=== PATIENT | male | born 1955 | race Caucasian/White ===

== ENCOUNTER → 2019-10-21 09:55 | Outpatient (CLI) | payer OTHER, SELFPAY ==
--- NOTE | ~2019-10-21 | DEXA_ITS ---
Bone Density Report Name: Juventino Chappell Age: 64 Sex: Male Ethnicity: White Date of : 1955 Indication: height loss; history of glucocorticoids; rheumatoid arthritis; Referring Provider: JOHN, OTONIEL Godinez Study: Bone densitometry was performed. Exam Date: October 21, 2019 Accession number: [id number] Bone Density: Region BMD T-score Z-score Classification AP Spine (L1, L2, L3) 1.318 2.3 2.9 Normal Femoral Neck (Left) 1.015 0.6 1.6 Normal Total Hip (Left) 1.197 1.1 1.6 Normal Femoral Neck (Right) 1.036 0.8 1.8 Normal Total Hip (Right) 1.137 0.7 1.2 Normal Total Hip Mean 1.167 0.9 1.4 Normal World Health Organization criteria for BMD impression classify patients as: Normal (T-score at or above -1.0), Osteopenia (T-score between -1.0 and -2.5), or Osteoporosis (T-score at or below -2.5). 10-year Fracture Risk: FRAX not reported because: All T-scores for Spine Total, Hip Total, Femoral Neck at or above -1.0 Clinical Information Provided by Patient: Has taken Glucocorticoids Has rheumatoid arthritis Has 3 or more alcoholic drinks per day Patient maximum height was 76 Drinks caffeinated beverages Impression: The patient has normal bone mass. The patient has risk factors, including: excessive alcohol use, history of glucocorticoid therapy. Discussion: BONE DENSITY IS ABOVE THE MINIMUM DESIRABLE LEVEL AT ALL SKELETAL SITES TESTED. This patient?s bone mineral density is above the minimum desirable level (T-score -1.0 or better) at all sites measured. The patient should follow a healthful lifestyle (good nutrition with adequate calcium and vitamin D, and appropriate weight-bearing exercise). Follow-Up: Consider repeating this study in 5 years or sooner if there is some new clinical indication. Reported by: [facility] on 10/21/2019 10:30:00 AM. Reviewed, dictated and finalized at location ANieves JACK
== END ==
PROVIDERS: PCP Internal Medicine; Visit Provider Internal Medicine
DX: M06.9 Rheumatoid arthritis, unspecified (principal); R29.890 Loss of height; Z79.52 Long term (current) use of systemic steroids
CPT/HCPCS: 77080

== ENCOUNTER 2019-11-05 10:26 | Outpatient (CLI) | payer OTHER, SELFPAY ==
--- NOTE | 2019-11-05 | EST_ITS ---
Patient Info Name: Juventino Chappell Age: 64 years : 1955 Gender: Male Ht: 74 in Wt: 225 lbs BSA: 2.33 m2 Exam Date: 11/05/2019 11:23 AM Exam Location: [facility] Stress Patient Status: Outpatient Admit Date: 11/05/2019 Staff Ordering Physician: PHYSICIAN NOT ON STAFF, NONSTAFF Attending Provider: UNKNOWN, DOCTOR Exercise Technologist: Kajal Baum RDCS Nurse: Suha Fournier, JERO, ACNP-BC Exam Type: CA stress test treadmill Study Info Indications I25.10 - Atherosclerotic heart disease of [place] coronary artery without angina pectoris A treadmill exercise stress test was performed. Summary 1. Normal sinus rhythm. 2. Occasional PVC. 3. PVCs and several ventricular couplets noted during exercise which were asymptomatic. 4. No abnormal ST/T wave changes with exercise. 5. Clinically and electrocardiographically negative stress test for ischemia at 95% of maximum predicted heart rate. Protocol: [facility] Stress ECG Details Stage: REST Duration (min): 5 min : 50 sec Speed (mph): 0.0 Grade (%): 0 HR (bpm): 61 SBP (mmHg): 127 DBP (mmHg): 75 METS: --- Stage: STAGE 1 Duration (min): 1 min : 0 sec Speed (mph): 1.7 Grade (%): 10 HR (bpm): 98 SBP (mmHg): 127 DBP (mmHg): 75 METS: --- Stage: STAGE 1 Duration (min): 2 min : 0 sec Speed (mph): 1.7 Grade (%): 10 HR (bpm): 105 SBP (mmHg): 127 DBP (mmHg): 75 METS: --- Stage: STAGE 1 Duration (min): 3 min : 0 sec Speed (mph): 1.7 Grade (%): 10 HR (bpm): 112 SBP (mmHg): 162 DBP (mmHg): 84 METS: --- Stage: STAGE 2 Duration (min): 1 min : 0 sec Speed (mph): 2.5 Grade (%): 12 HR (bpm): 120 SBP (mmHg): 162 DBP (mmHg): 84 METS: --- Stage: STAGE 2 Duration (min): 2 min : 0 sec Speed (mph): 2.5 Grade (%): 12 HR (bpm): 124 SBP (mmHg): 190 DBP (mmHg): 98 METS: --- Stage: STAGE 2 Duration (min): 3 min : 0 sec Speed (mph): 2.5 Grade (%): 12 HR (bpm): 127 SBP (mmHg): 190 DBP (mmHg): 98 METS: --- Stage: STAGE 3 Duration (min): 1 min : 0 sec Speed (mph): 3.4 Grade (%): 14 HR (bpm): 140 SBP (mmHg): 193 DBP (mmHg): 94 METS: --- Stage: STAGE 3 Duration (min): 2 min : 0 sec Speed (mph): 3.4 Grade (%): 14 HR (bpm): 146 SBP (mmHg): 193 DBP (mmHg): 94 METS: --- Stage: STAGE 3 Duration (min): 2 min : 31 sec Speed (mph): 3.4 Grade (%): 14 HR (bpm): 147 SBP (mmHg): 193 DBP (mmHg): 94 METS: --- Stage: RECOVERY Duration (min): 0 min : 28 sec Speed (mph): 1.5 Grade (%): 0 HR (bpm): 140 SBP (mmHg): 214 DBP (mmHg): 99 METS: --- Stage: RECOVERY Duration (min): 1 min : 28 sec Speed (mph): 0.0 Grade (%): 0 HR (bpm): 108 SBP (mmHg): 214 DBP (mmHg): 99 METS: --- Stage: RECOVERY Duration (min
== END 2019-11-05 10:27 | disposition home or self-care (01) ==
LOC: ANHCARD 10:31
PROVIDERS: PCP Internal Medicine
DX: I25.10 Atherosclerotic heart disease of native coronary artery without angina pectoris (principal)
CPT/HCPCS: 93017

== ENCOUNTER 2020-01-18 08:52 | Outpatient (CLI) | payer OTHER, SELFPAY ==
--- NOTE | 2020-01-18 | ECHO_ITS ---
Patient Info Name: Juventino Chappell Age: 64 years : 1955 Gender: Male Ht: 75 in Wt: 225 lbs BSA: 2.34 m2 HR: 59 bpm BP: 124 / 78 mmHg Heart Rhythm: Sinus Rhythm Technical Quality: Good Exam Date: 01/18/2020 9:31 AM Exam Location: [facility] Pulmonary Patient Status: Outpatient Admit Date: 01/18/2020 Staff Ordering Physician: LeticiaElizabeth MD Top Steep Tender: Calvin Larkin RDCS, RT Attending Provider: MynorElizabeth MD Referring Physician: Leticia REECE; Exam Type: CA echo doppler color flow Study Info Indications I50.9 - Heart failure, unspecified Complete two-dimensional, color flow and Doppler transthoracic echocardiogram is performed. Summary 1. Left ventricular chamber dimension is normal. 2. Left ventricular systolic function is normal, estimated at 55-60%. 3. There is mildly increased left ventricular wall thickness. 4. Left ventricular septal wall motion is normal. 5. The left ventricular diastolic function is abnormal. 6. Global longitudinal strain is normal at -21 %. 7. Left atrial chamber dimension is mildly enlarged. 8. Right atrial chamber dimension is mildly enlarged. 9. There is mild to moderate mitral valve regurgitation. 10. There is mild tricuspid valve regurgitation. Left Ventricle Left ventricular chamber dimension is normal. Left ventricular systolic function is normal, estimated at 55-60%. There is mildly increased left ventricular wall thickness. Left ventricular septal wall motion is normal. The left ventricular diastolic function is abnormal. Global longitudinal strain is normal at -21 %. Right Ventricle Right ventricular chamber dimension is normal. Right ventricular systolic function is normal. Left Atria Left atrial chamber dimension is mildly enlarged. Right Atria Right atrial chamber dimension is mildly enlarged. Atrial Septum Intact interatrial septum visualized by color flow imaging. Aortic Valve The aortic valve is trileaflet. There is mild aortic valve sclerosis. There is no aortic valve stenosis. There is trace aortic valve regurgitation. Pulmonic Valve The pulmonic valve is normal. There is no pulmonic valve stenosis. There is trace pulmonic regurgitation. Mitral Valve The mitral valve has calcified annulus. There is no mitral valve stenosis. There is mild to moderate mitral valve regurgitation. Tricuspid Valve No pulmonary hypertension, estimated pulmonary arterial systolic pressure is 25 mmHg. The tricuspid valve leaflets are normal. There is no significant tricuspid valve stenosis. There is mild tricuspid valve regurgitation. Pericardium/Pleural The pericardium appears normal. There is no pericardial effusion. Inferior Vena Cava Normal inferior vena cava with >50% collapse upon inspiration consistent with normal right atrial pressure, 5 mmHg. Aorta The aortic root size at the sinus of Valsalva is normal. The prox ascending aorta size is normal. Left Ventricular Outflow Tract Name Value Normal LVOT 2D LVOT Diameter 2.3 cm LVOT Doppler LVOT Peak Gradient 3 mmHg LV
--- NOTE | 2020-01-22 12:14 | WPDHOLTEREM ---
Holter/Event Monitor Holter/Event Monitor Date of procedure: 01/18/20 Procedure Type: 48 hour holter monitor Indications: PVC's Conclusion: 1. 48 hour holter monitor on 01/18/20. 2. Underlying rhythm is sinus rhythm. HR range 40-146 bpm; average HR 67 bpm. 3. There are 322 premature supraventricular complexes, 8 supraventricular couplets, 23 supraventricular bigeminy and 3 supraventricular trigeminy. No supraventricular tachycardia. 4. There are 666 premature ventricular complexes and 6 ventricular couplets. No ventricular tachycardia. 5. No sinoatrial or atrioventricular blocks. No significant pauses greater than 2 seconds. 6. No symptoms available for correlation.
== END 2020-01-18 08:53 | disposition home or self-care (01) ==
PROVIDERS: PCP Internal Medicine; Visit Provider Internal Medicine
DX: I49.3 Ventricular premature depolarization (principal); R93.1 Abnormal findings on diagnostic imaging of heart and coronary circulation
CPT/HCPCS: 93225; 93226; 93306

== ENCOUNTER 2022-02-07 00:31 | Day surgery (SDC) | payer MEDICARE, SELFPAY ==
[2022-01-26 10:00] VITALS: BMI 27.6
[2022-02-07 10:20] VITALS: BP 126/72; PULSE 63; RESP 18; TEMP 36.5; O2SAT 100
--- NOTE | 2022-02-07 10:20 | PM.HPGS ---
History of Present Illness History of Present Illness Consent: Risks, benefits, and alternatives have been discussed and questions answered. Patient agrees to proceed with procedure. Chief complaint: hx of colon polyps Narrative: Juventino Chappell is a 66 year old male with history of colon polyps referred for colon cancer screening. Review of Systems Review of Systems: All systems reviewed & are unremarkable except as noted in HPI and below PMFSH Social History Social History Smoking packs per day: 1.5 Smoking cigarettes per day: 30.0 Years smoked: 30 Smoking pack-years: 45.00 Smoking status: Former smoker Tobacco type: cigarettes Alcohol intake: current Drinks per week: 35 Alcohol use details: 5 beers daily Substance use: current Substance use type: marijuana Other substance usage details: daily use marijuana Living arrangements: with family Spiritual care concerns: No Meds Home Medications and Allergies Home Medications Medication Instructions Recorded Confirmed Type albuterol sulfate 90 mcg/actuation 2 inh inhalation Q4-6H PRN 01/26/22 01/26/22 History aerosol inhaler Shortness Of Breath Or Wheezing folic acid 1 mg tablet 1 tablet PO DAILY 01/26/22 01/26/22 History gabapentin 300 mg capsule 300 mg PO DAILY 01/26/22 01/26/22 History methotrexate sodium 2.5 mg tablet 25 mg PO WEEKLY 01/26/22 01/26/22 History pravastatin 40 mg tablet 40 mg PO DAILY 01/26/22 01/26/22 History prednisone 2.5 mg tablet 2.5 mg PO DAILY 01/26/22 01/26/22 History prednisone 5 mg tablet 5 mg PO DAILY 01/26/22 01/26/22 History rivaroxaban 20 mg tablet (Xarelto) 20 mg PO DAILY 01/26/22 01/26/22 History trazodone 150 mg tablet 150 mg PO DAILY 01/26/22 01/26/22 History Allergies Allergy/AdvReac Type Severity Reaction Status Date / Time No Known Allergies Allergy Unknown Verified 02/07/22 10:19 Exam Resp: Auscultation: clear to auscultation bilaterally Cardio: Rate: regular rate Rhythm: regular rhythm GI: GI Palp: Yes Soft to palpation and No Tenderness to palpation present (GI) Assessment and Plan Assessment and plan (1) Colon cancer screening: Code(s): Z12.11 - Encounter for screening for malignant neoplasm of colon Status: Acute Assessment and Plan: Colonoscopy with possible biopsy or polypectomy or cautery or injection of substances.
[2022-02-07] MEDS: LACTATED RINGERS 1,000 ML 150 ML IV CONT (10:32)
[2022-02-07 11:42] VITALS: BP 87/56; PULSE 54; RESP 22; O2SAT 99
[2022-02-07 11:51] VITALS: BP 101/61; PULSE 65; RESP 21; O2SAT 98
[2022-02-07 12:02] VITALS: BP 143/88; PULSE 65; RESP 22; O2SAT 100
== END 2022-02-07 12:13 | disposition home or self-care (01) ==
PROVIDERS: PCP Internal Medicine; Visit Provider Internal Medicine Gastroenterology
PROC: 0DJD8ZZ Inspection of Lower Intestinal Tract, Via Natural or Artificial Opening Endoscopic (ICD-10-PCS; CPT 45378; principal; 2022-02-07 11:30)
DX: Z12.11 Encounter for screening for malignant neoplasm of colon (principal); K64.8 Other hemorrhoids; K57.30 Diverticulosis of large intestine without perforation or abscess without bleeding; D12.5 Benign neoplasm of sigmoid colon; Z87.891 Personal history of nicotine dependence; Z79.51 Long term (current) use of inhaled steroids; Z79.01 Long term (current) use of anticoagulants; Z79.52 Long term (current) use of systemic steroids
CPT/HCPCS: 45385; 88305; J2704; J7120

== ENCOUNTER → 2022-03-13 14:55 | Outpatient (CLI) | payer MEDICARE, SELFPAY ==
--- NOTE | ~2022-03-13 | XR_ITS ---
XR chest 2V 03/13/2022 15:15 Indication: Cough Procedure: 2 view chest Comparison: 12/25/2017 Findings: Left lower lobe airspace disease, suspicious for pneumonia. Heart size normal. The lungs ar e hyperinflated which is consistent with, but not diagnostic of chronic obstructive pulmonary disease . No significant pleural effusion or pneumothorax. Impression: 1: Left lower lobe airspace disease, compatible with pneumonia. Reviewed, dictated and finalized at location A. Impression: 1: Left lower lobe airspace disease, compatible with pneumonia.
== END ==
PROVIDERS: PCP Internal Medicine; Visit Provider Internal Medicine
DX: R05.9 Cough, unspecified (principal); R91.8 Other nonspecific abnormal finding of lung field
CPT/HCPCS: 71046

== ENCOUNTER → 2022-04-27 09:58 | Outpatient (CLI) | payer MEDICARE, SELFPAY ==
--- NOTE | ~2022-04-27 | US_ITS ---
EXAMINATION: US aorta DATE: 04/27/2022 10:24 INDICATION: Abdominal aortic aneurysm screening, prior tobacco use TECHNIQUE: Grayscale, color Doppler, and pulsed Doppler images of the aorta and common iliac arteries were obtained. COMPARISON: None. FINDINGS: Maximum vascular dimensions are as follows: Proximal aorta: 2.1 cm Mid aorta: 2.5 cm Distal aorta: 5.3 cm Right common iliac artery: 1.3 cm Left common iliac artery: 1.4 cm There is a 5.3 x 3.9 cm fusiform infrarenal abdominal aortic aneurysm. IMPRESSION: 1. 5.3 x 3.9 cm fusiform infrarenal abdominal aortic aneurysm. Surgical evaluation is recommended. Reviewed, dictated and finalized at location B. IMPRESSION: 1. 5.3 x 3.9 cm fusiform infrarenal abdominal aortic aneurysm. Surgical evaluat ion is recommended.
--- NOTE | ~2022-04-27 | XR_ITS ---
XR chest 2V 04/27/2022 10:28 Indication: Pneumonia Procedure: 2 view chest Comparison: 03/13/2022 Findings: There is improving right lower lobe airspace disease, consistent with resolving pneumonia. There is chronic left basilar scarring. Heart size normal. No acute osseous abnormality. No edema or pneumothorax. No acute osseous abnormality. The lungs are hyperinflated which is consistent with, but not diagnostic of chronic obstructive pulmo nary disease. Impression: 1: Improving right basilar airspace disease, consistent with resolving pneumonia. Reviewed, dictated and finalized at location A. Impression: 1: Improving right basilar airspace disease, consistent with resolving pneumoni a.
== END ==
PROVIDERS: PCP Internal Medicine; Visit Provider Internal Medicine
DX: J18.9 Pneumonia, unspecified organism (principal); Z13.6 Encounter for screening for cardiovascular disorders; Z87.891 Personal history of nicotine dependence; R91.8 Other nonspecific abnormal finding of lung field; I71.4 Abdominal aortic aneurysm, without rupture
CPT/HCPCS: 71046; 76775

== ENCOUNTER 2022-06-18 08:58 | Outpatient (CLI) | payer MEDICARE, SELFPAY ==
--- NOTE | 2022-06-18 11:30 | NEURO_ITS ---
Impression: # Complains of left foot drop. # Absent responses on routing Nerve Conduction Study including F-waves. # Needle/EMG exam neurogenic. # Problem could be related to peripheral and higher involvement. Nerve Conduction Studies Anti Sensory Summary Table Stim Site NR Peak (ms) P-T Amp (?V) Site1 Site2 Delta-P (ms) Dist (cm) Marin (m/s) Left Sup Fibular Anti Sensory (Ant Lat Mall) NO RESPONSE 14 cm NR 14 cm Ant Lat Mall 16.0 Left Sural Anti Sensory (Lat Mall) NO RESPONSE Calf NR Calf Lat Mall 16.0 Motor Summary Table Stim Site NR Onset (ms) O-P Amp (mV) Site1 Site2 Delta-0 (ms) Dist (cm) Marin (m/s) Left Peroneal Motor (Vastus Med) NO RESPONSE Ankle NR Popit Ankle 0.0 Popit NR Left Tibial Motor (Abd August Brev) NO RESPONSE Ankle NR Knee NR F Wave Studies NR F-Lat (ms) L-R F-Lat (ms) Left Peroneal (Mrkrs) (EDB) NO RESPONSE NR Left Tibial (Mrkrs) (Abd Hallucis) NO RESPONSE NR EMG Side Muscle Nerve Root Ins Act Fibs Amp Dur Recrt Comment Left AntTibialis Dp Br Fibular L4-5 Nml Nml Nml >12ms Reduced Left Gastroc Tibial S1-2 Nml Nml Nml >12ms Reduced Left Fibularis Long Sup Br Fibular L5-S1 Nml Nml Nml >12ms Reduced Left Flex Dig Long Tibial L5-S2 Nml Nml Nml >12ms Reduced Left Ext Dig Brev Dp Br Fibular L5, S1 Nml Nml Nml >12ms Reduced Left QuadratusFem QuadFemoris L4-5, S1 Nml Nml Nml >12ms Reduced MTDD
== END 2022-06-18 08:59 | disposition home or self-care (01) ==
PROVIDERS: PCP Internal Medicine; Visit Provider Internal Medicine
DX: M21.372 Foot drop, left foot (principal)
CPT/HCPCS: 95886; 95908

== ENCOUNTER → 2022-07-11 14:44 | Outpatient (CLI) | payer MEDICARE, SELFPAY ==
--- NOTE | ~2022-07-11 | DEXA_ITS ---
Bone Density Report Name: RIGO AKINS Age: 66 Sex: Male Ethnicity: White Date of : 1955 Indication: height loss; history of glucocorticoids; rheumatoid arthritis; Referring Provider: OTONIEL LOPEZ Study: Bone densitometry was performed. Exam Date: July 11, 2022 Accession number: [id number] Bone Density: Region BMD T-score Z-score Classification AP Spine (L1, L2, L3) 1.322 2.3 3.1 Normal Femoral Neck (Left) 1.093 1.2 2.3 Normal Total Hip (Left) 1.221 1.2 1.8 Normal Femoral Neck (Right) 1.075 1.1 2.1 Normal Total Hip (Right) 1.120 0.6 1.1 Normal Total Hip Mean 1.171 0.9 1.5 Normal World Health Organization criteria for BMD impression classify patients as: Normal (T-score at or above -1.0), Osteopenia (T-score between -1.0 and -2.5), or Osteoporosis (T-score at or below -2.5). 10-year Fracture Risk: FRAX not reported because: All T-scores for Spine Total, Hip Total, Femoral Neck at or above -1.0 Previous Exams: Region Exam Age BMD T-score BMD Change BMD Change Date g/cm2 vs Baseline vs Previous AP Spine(L1, L2, L3) 07/11/2022 66 1.322 2.3 0.004 0.004 10/21/2019 64 1.318 2.3 Total Hip(Left) 07/11/2022 66 1.221 1.2 0.024 0.024 10/21/2019 64 1.197 1.1 Total Hip(Right) 07/11/2022 66 1.120 0.6 -0.018 -0.018 10/21/2019 64 1.137 0.7 *Denotes significance at 95% confidence level, LSC for AP Spine = 0.022 g/cm2, LSC for Total Hip = 0.027 g/cm2 Clinical Information Provided by Patient: Has taken Glucocorticoids Has rheumatoid arthritis Has 3 or more alcoholic drinks per day Has used the following medications: Vitamin D, prednisone Patient maximum height was 76 No regular weight bearing exercise Does not regularly consume dairy products Drinks caffeinated beverages Impression: The patient has normal bone mass. The patient has risk factors, including: excessive alcohol use, history of glucocorticoid therapy. No significant bone loss was observed. Discussion: BONE DENSITY IS ABOVE THE MINIMUM DESIRABLE LEVEL AT ALL SKELETAL SITES TESTED. This patient?s bone mineral density is above the minimum desirable level (T-score -1.0 or better) at all sites measured. The patient should follow a healthful lifestyle (good nutrition with adequate calcium and vitamin D, and appropriate weight-bearing exercise). Follow-Up: Consider repeating this study in 5 years or soone
--- NOTE | ~2022-07-11 | XR_ITS ---
EXAMINATION: XR chest 2V Exam Date/Time: 07/11/2022 14:55 COMMUNITY DEVELOPMENT AIDE HISTORY: follow up pna Comparison: 04/27/2022 and 03/13/2022. RESULT: Lines, tubes, and devices: None. Lungs and pleura: No focal consolidation or pneumothorax. Emphysematous and senescent change. Chroni c left lower lobe pleural parenchymal scarring. Cardiomediastinal silhouette: Stable. Other: No acute osseous or upper abdominal finding. IMPRESSION: No acute cardiopulmonary process. Reviewed, dictated and finalized at location K. UNITY DEVELOPMENT AIDE
== END ==
PROVIDERS: PCP Internal Medicine; Visit Provider Internal Medicine
DX: M85.88 Other specified disorders of bone density and structure, other site (principal)
CPT/HCPCS: 71046; 77080

== ENCOUNTER → 2023-03-15 12:33 | Outpatient (CLI) | payer MEDICARE, SELFPAY ==
--- NOTE | ~2023-03-15 | XR_ITS ---
EXAMINATION: XR lumbar spine 2-3V DATE: 03/15/2023 13:01 INDICATION: Low back pain TECHNIQUE: Anteroposterior and lateral views of the lumbar spine, and cone-down lateral view of the l umbosacral junction were obtained. COMPARISON: None. FINDINGS: There are 8 mm of anterolisthesis of L5 on S1. Vertebral body alignment is otherwise mainta ined. There is moderate loss of intervertebral disc space height at L2-3 and L5-S1. There is mild los s of intervertebral disc space height throughout the remainder of the lumbar spine. The vertebral bod y heights are maintained. There is no fracture. There is severe facet joint osteoarthritis of the low er lumbar spine. Small degenerative osteophytes project from the anterior endplates of multiple verte bral bodies. Endovascular stents are noted in the abdominal aorta, bilateral common iliac arteries, a nd left common iliac vein. The visualized lung bases are clear. IMPRESSION: 1. Moderate to severe lumbar spondylosis without acute findings. Reviewed, dictated and finalized at location B.
== END ==
PROVIDERS: PCP Internal Medicine; Visit Provider Internal Medicine
DX: M47.816 Spondylosis without myelopathy or radiculopathy, lumbar region (principal)
CPT/HCPCS: 72100

== ENCOUNTER → 2023-07-02 14:06 | Outpatient (CLI) | payer MEDICARE, SELFPAY ==
--- NOTE | ~2023-07-02 | MR_ITS ---
EXAMINATION: MR lumbar spine wo con DATE: 07/02/2023 14:44 INDICATION: Radiculopathy, lumbar region. Low back pain. Bilateral leg weakness. TECHNIQUE: Magnetic resonance imaging (MRI) of the lumbar spine was performed without intravenous con trast. Sequences included sagittal T2-weighted FSE, sagittal T2-weighted FS FSE, sagittal T1-weighted FSE, and axial T2-weighted FSE. COMPARISON: Lumbar spine radiographs 03/15/2023 FINDINGS: There is 12 degrees levoscoliosis of thoracolumbar spine. There is 4 mm retrolisthesis of L 3 on L4 and 6 mm anterolisthesis of L5 on S1. There are chronic bilateral L5 pars defects. There is m ild chronic anterior wedging of T12-L2 vertebral bodies. There is mild chronic posterior wedging of L 5 vertebral body. There is mildly decreased disc height at L3-L4 and L4-L5 and severely decreased dis c height at L5-S1. The following disc levels are specifically discussed: L1-L2: The disc does not extend beyond the endplate margin. There is moderate bilateral facet joint o steoarthritis. There is mild right neural foraminal stenosis. There is no central canal stenosis. L2-L3: The disc does not extend beyond the endplate margin. There is severe bilateral facet joint ost eoarthritis. There is mild right neural foraminal stenosis. There is no central canal stenosis. L3-L4: The disc is bulging. There is severe bilateral facet joint osteoarthritis. There is moderate b ilateral neural foraminal stenosis. There is mild central canal stenosis. There is severe stenosis of the lateral recesses. L4-L5: The disc is bulging. There is severe bilateral facet joint osteoarthritis. There is moderate b ilateral neural foraminal stenosis. There is mild central canal stenosis. L5-S1: The disc is bulging and has an annular fissure. There is moderate bilateral facet joint osteoa rthritis. There is mild bilateral neural foraminal stenosis. There is no central canal stenosis. IMPRESSION: 1. Severe lumbar spondylosis. 2. Chronic bilateral L5 pars defects with grade 1 retrolisthesis of L5 on S1. 3. Thoracolumbar levoscoliosis. Reviewed, dictated and finalized at location E.
== END ==
PROVIDERS: PCP Internal Medicine; Visit Provider Nurse Practitioner Family
DX: M54.16 Radiculopathy, lumbar region (principal); M43.06 Spondylolysis, lumbar region; M41.85 Other forms of scoliosis, thoracolumbar region
CPT/HCPCS: 72148

== ENCOUNTER → 2023-07-08 10:18 | Outpatient (CLI) | payer MEDICARE, SELFPAY ==
--- NOTE | ~2023-07-08 | MR_ITS ---
MRI of the thoracic spine Clinical History: Back pain Technique: Axial T2-weighted and gradient images, and sagittal T1-weighted, T2-weighted, and STIR perla ges were acquired. Findings: No acute fracture or subluxation seen. There are mild chronic compression deformities of T8 and T9. There is mild kyphosis of the lower thoracic spine. No suspicious bone marrow signal reality seen. There is mild to moderate degenerative disc narrowing at the mid to lower thoracic spine. There are m inimal disc osteophyte complexes at T9-T10, T10-T11, T11-T12. No tierra spinal canal stenosis or cord compression identified. No epidural mass or collection seen. Paravertebral soft tissues are unremarkable. Impression: Mild chronic compression fractures of T8 and T9, with kyphosis of the lower thoracic spine. Mild spondylosis, as above. Reviewed, dictated and finalized at [facility]. 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 Mild spondylosis, as above.
== END ==
PROVIDERS: PCP Nurse Practitioner Family; Visit Provider Nurse Practitioner Family
DX: M47.896 Other spondylosis, lumbar region (principal)
CPT/HCPCS: 72146

== ENCOUNTER 2023-12-27 08:48 | Outpatient (CLI) | payer MEDICARE, SELFPAY ==
--- NOTE | ~2023-12-27 | XR_ITS ---
XR hip LT min 2V 12/27/2023 09:10 Indication: Left hip pain Procedure: 2 views left hip Comparison: 07/17/2017 Findings: Moderate osteoarthritis of the left hip. No fracture, subluxation or dislocation. No soft t issue abnormality. No foreign bodies. Impression: 1: Moderate osteoarthritis of the left hip. Reviewed, dictated and finalized at location B. Impression: 1: Moderate osteoarthritis of the left hip.
== END 2023-12-27 08:49 ==
LOC: MICIMG 08:50
PROVIDERS: PCP Internal Medicine; Visit Provider Internal Medicine
DX: M16.12 Unilateral primary osteoarthritis, left hip (principal)
CPT/HCPCS: 73502

== ENCOUNTER 2025-02-15 12:40 | Emergency (ER) | payer MEDICARE, SELFPAY ==
[2025-02-15 12:43] VITALS: BP 142/82; PULSE 65; RESP 18; TEMP 36.9; O2SAT 97
--- OUTSIDE RECORDS SUMMARY | 2025-02-15 13:29 | XMS_ITS | Clinical Summary ---
Author Organization [facility] Address [address] [facility], [address] [address] Phone Care Team Providers Care Return Clerk Name Role Phone Fox Leo MD Primary Care Provider [phone] Twin Bowen DO Unavailable [phone] Social History Tobacco Use Types Packs/Day Years Used Date Smoking Tobacco: Never Assessed Sex and Gender Information Value Date Recorded Sex Assigned at Not on file Legal Sex Male 9:40 AM CDT Gender Identity Not on file Sexual Orientation Not on file Plan of Treatment Health Maintenance Due Date Last Done Comments TdaP Immunization 1955 Colonoscopy 2001 Colorectal Cancer Screening 2001 Cologuard 2006 Immunochemical Fecal Occult Blood 2006 Pneumococcal Immunization (5 0+ years) (1 of 1 - PCV) 2006 Zoster Immunization (1 of 2) 2006 PSA Discussion 2011 Influenza Immunization (#1) 2024 SARS-COV-2 Immunization ( season) 2024 Respiratory Syncytial Virus (RSV) Immunization (Adult) (1 - 1-dose 75+ series) 2031 Hepatitis C Virus (HCV) Screening Completed 016 Hepatitis B Immunization Aged Out No longer eligible based on patient's age to complete this topic Meningococcal Immunization (ACWY) Aged Out No longer eligible based on patient's age to complete this topic Rotavirus Immunization Aged Out No lo nger eligible based on patient's age to complete this topic Procedures Procedure Name Priority Date/Time Associated Diagnosis Comments HEPATITIS C ANTIBODY Routine 02/08/2016 from Last 3 Months or Most Recently Relevant to Health Maintenance Results * HEPATITIS C ANTIBODY (02/08/2016) Blood specimen (specimen) Rai Snyder MD CHEMISTRY ORDERABLES Christina l Result from Last 3 Months or Most Recently Relevant to Health Maintenance Insurance [employer] Care Teams Return Clerk Relationship Specialty Start Date End Date Fox Leo MD PCP - General Internal Medicine 02/14/16 Twin Bwoen DO Gastroenterology 02/14/16
--- OUTSIDE RECORDS SUMMARY | 2025-02-15 13:29 | XMS_ITS | Encounter Summary ---
Author Organization [facility] Facility Care Team Providers Care Pastry Artist Name Role Phone Jean Raygoza MD Primary Care Provider [phone] Elizabeth Kelly MD Primary Care Provider [phone] Macho Harrison MD Unavailable [phone] Colton Portillo MD Unavailable [phone] Encounter Details Date Type Department Care Team (Latest Contact Info) Description 10/24/2016 Orders Only [facility] CLINCONV Provider, MD Dwight [address] [place] [address] Social History Tobacco Use Types Packs/Day Years Used Date Smoking Tobacco: Former Comments:Smoking History Pac ks/day: 2 Packs Alcohol Use Standard Drinks/Week Comments Yes 0 (1 standard drink = 0.6 oz pur e alcohol) Sex and Gender Information Value Date Recorded Sex Assigned at Not on file Legal Sex Male 1:59 AM 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 Historical Provider Final Res ult documented in this encounter Visit Diagnoses Not on filedocumented in this encounter Additional Health Concerns Infection Onset Date Last Indicated Resolved Time COVID: Suspected 03/06/2022 03/06/2022 03/06/2022 7:58 PM CDT COVID19 03/06/2022 03/06/2022 03/16/2022 3:05 AM CDT COVID: Recovered Comment:Added based on recent COVID infection. 03/16/2022 03/16/2022 07/14/2022 3:[address] documented as of this encounter Care Teams Pastry Artist Relationship Specialty Start Date End Date Jean Raygoza MD PCP - General 01/04/17 04/05/20 Elizabeth Kelly MD PCP - General Internal Medicine 04/06/20 Macho Harrison MD [address] [facility] [place] [address] Surgeon Vascular Surgery 05/08/22 Colton Portillo MD [address] [place] [address] [place] [address] Consulting Physician Cardiovascular Disease 06/26/22 documented as of this encounter
--- OUTSIDE RECORDS SUMMARY | 2025-02-15 13:29 | XMS_ITS | Encounter Summary ---
Author Organization [facility] Facility Care Team Providers Care Personal Attendant Name Role Phone Jean Raygoza MD Primary Care Provider [phone] Elizabeth Kelly MD Primary Care Provider [phone] Macho Harrison MD Unavailable [phone] Colton Portillo MD Unavailable [phone] Encounter Details Date Type Department Care Team (Latest Contact Info) Description 10/12/2016 Orders Only [facility] CLINCONV Provider, MD Dwight [address] [place], [place] [id number] Social History Tobacco Use Types Packs/Day Years Used Date Smoking Tobacco: Former Comments:Smoking History Pac ks/day: 2 Packs Alcohol Use Standard Drinks/Week Comments Yes 0 (1 standard drink = 0.6 oz pur e alcohol) Sex and Gender Information Value Date Recorded Sex Assigned at Not on file Legal Sex Male 1:59 AM PIPELINER Gender Identity Not on file Sexual Orientation Not on file documented as of this encounter Plan of Treatment Not on file documented as of this encounter Procedures Procedure Name Priority Date/Time Associated Diagnosis Comments PROCEDURE - RESULT 10/12/2016 12 :00 AM PIPELINER documented in this encounter Results * PROCEDURE - RESULT (10/12/2016 12:00 AM PIPELINER) Narrative 10/12/2016 12:00 AM PIPELINER Ordered by an unspecified provider. Historical Provider [...] documented as of this encounter Care Teams Personal Attendant Relationship Specialty Start Date End Date Jean Raygoza MD PCP - General 01/04/17 04/05/20 Elizabeth Kelly MD PCP - General Internal Medicine 04/06/20 Macho Harrison MD [address] [place] [facility] [place] [address] Surgeon Vascular Surgery 05/08/22 Colton Portillo MD [address] [place] [address] Consulting Physician Cardiovascular Disease 06/26/22 documented as of this encounter
--- OUTSIDE RECORDS SUMMARY | 2025-02-15 13:29 | XMS_ITS | Encounter Summary ---
Author Organization [facility] Address [address] [place] [address] Care Team Providers Care Airplane Captain Name Role Phone Elizabeth Kelly MD Primary Care Provider [phone] Encounter Details Date Type Department Care Team (Late st Contact Info) Description 06/05/2024 Lab Requisition [facility] - DermPath Lab [address] [facility], [place] [id number] James Rivas MD [facility] DERMATOLOGY [address] [place] [address] Social History Tobacco Use Types Packs/Day Years Used Date Smoking Tobacco: Never Assessed Sex and Gender Information Value Date Recorded Sex Assigned at Not on file Legal Sex Male 6:31 AM DITCHER Gender Identity Not on file Sexual Orientation Not on file documented as of this encounter Plan of Treatment Not on file documented as of this encounter Procedures Procedure Name Priority Date/Time Associated Diagnosis Comments DERMATOPATHOLOGY Routine 06/04/2024 12:0 0 AM CDT documented in this encounter Results * DERMATOPATHOLOGY (06/04/2024 12:00 AM CDT) Case Report Dermatopathology Report Case: [id number] Authorizing Provider: James Rivas MD Collected: 06/04/2024 12:00 AM Ordering Location: [facility] - Received: 06/05/2024 03:05 PM DermPath Lab Pathologist: Ibeth [place] MD Specimen: Skin, left distal pretibial region 3:48 PM CDT DERMATOPATHOLOGY LABORATORY Final Diagnosis Specimen A. SKIN, left distal pretibial region: BASAL CELL CARCINOMA, NOT PRESENT AT MARGIN (C44.719) SEBORRHEIC KERATOSIS (L82.1) DERMAL SCAR (L90.5) (see microscopic description) 3:48 PM CDT DERMATOPATHOLOGY LABORATORY at 1548 CDT Clinical History BCC Check margins 3:48 PM CDT DERMATOPATHOLOGY LABORATORY Gross Description Specimen A: Received is one formalin filled container labeled with the patient's name and designated left distal pretibial region. The specimen consists of a non-oriented ellipse of skin measuring 97p04x0 mm. The epidermal surface is unremarkable. The margin is inked green. The 12 o'clock and 6 o'clock tips are submitted in cassette 1. The remainder of the ellipse is serially sectioned and submitted in cassette 2. Jar 0. 3:48 PM CDT DERMATOPATHOLOGY LABORATORY Microscopic Description Specimen A. SKIN, left distal pretibial region: Within the dermis there are aggregates of basaloid cells with a high nuclear to cytoplasmic ratio and peripheral palisading. This lesion is not present at the margin of the specimen. Sections show an acanthotic lesion composed of relatively uniform keratinocytes. There is hyperkeratosis and pseudo horn cysts formation. This lesion is present at one lateral margin of the specimen. There are fibroblasts and collagen bundles oriented parallel to the skin surface with elongated blood vessels, some of which are oriented perpendicular to the skin surface. 3:48 PM CDT DERMATOPATHOLOGY LABORATORY Disclaimer An external and internal positive and negative controls are appropriate for the histochemical, immunohistochemical and immunofluorescence stain(s) in this case (if any), except where stated explicitly. The performance characteristics of the stain(s) cited in this report were developed and its performance characteristic determined by the Dermatopathology Laboratory at [facility], directed by Dr. Aiden Velez. These tests need not be, and therefore are not, approved by the [place] Food and Drug Administration. The tests are used for clinical purposes. Billing Codes Specimen Charges Stain Charges 67922 1 3:48 PM CDT DERMATOPATHOLOGY LABORATORY Embedded Images 3:48 PM CDT DERMATOPATHOLOGY LABORATORY Pathology/Cytolog y TISSUE SPECIMEN FROM SKIN / Unknown 06/04/2024 06/05/2024 3:05 PM CDT James Rivas MD LAB - PATHOLOGY/CYTOLOGY NATHAN REZA Final Result DERMATOPATHOLOGY LABORATORY [facility] - Department of Dermatology [facility] Medicine [address] [place] [address], [address] [phone] documented in this encounter Visit Diagnoses Not on filedocumented in this encounter Care Teams Airplane Captain Relationship Specialty Start Date End Date Elizabeth Kelly MD [address] [place] [address] PCP - General 02/12/22 documented as of this encounter
--- OUTSIDE RECORDS SUMMARY | 2025-02-15 13:29 | XMS_ITS | Continuity of Care Document ---
Author Organization [facility] Address [address] [place] [address] Phone Care Team Providers Care Caramel Cutter Helper Name Role Phone Jeremiah Moore MD, MD [...] X-ray exam hand, 3+ views Thumb Spica [place] OTS 0 Thumb Spica [place] OTS 0 Kenalog Triamcinolone acetonide inj Asp/inject [...] [facility], [address], [id number], tel:[phone] [facility] Bilateral hands (chief complaint) Pain in right handPain in left handUnilateral primary osteoarthritis of first carpometacarpal joint, left handUnilateral primary osteoarthritis of first carpometacarpal joint, right handOther RA with rheumatoid factor of hand 0 Teresa Daniels. [address], [id number], [place]. tel:[phone] Office/outpa tient visit,lesly valles [facility], [address], [id number], [place] tel:[phone] [facility] bilateral hands (chief complaint) Unilateral primary osteoarthritis of first carpometacarpal joint, right handUnilateral primary osteoarthritis of first carpometacarpal joint, left handOther RA with rheumatoid factor of hand 8 Teresa Daniels. [address] [facility], [address], [id number], [place]. tel:[phone] Family History Family Member Type Diagnosis Age At Onset Father Problem (finding) Heart Disease Father Problem (finding) Osteoarthritis Mother Problem (finding) Cancer, unknown Payers Payer name Insurance type Covered libertarian ID Britanya charly(s) Osmartommyjaime Geena [id number] Social History Type Description Quantity Date Captured [...] lidocaine and Kenalog. I also gave him [place] thumb spica splints. Juventino reports that these [...] lidocaine and Kenalog. I also gave him [place] thumb spica splints. Juventino reports that these [...] I reviewed x-rays of both hands from [facility] taken on January 02, 2018. They show [...] the left thumb. I gave Melo new [place] Thumb Spica Splint today for the left [...] the right thumb. I also gave Melo [place] Thumb Spica Splint today for the right [...]
--- OUTSIDE RECORDS SUMMARY | 2025-02-15 13:29 | XMS_ITS | Encounter Summary ---
Author Organization [facility] Facility Care Team Providers Care J2Ee Engineer Name Role Phone Jean Raygoza MD Primary Care Provider [phone] Elizabeth Kelly MD Primary Care Provider [phone] Macho Harrison MD Unavailable [phone] Colton Portillo MD Unavailable [phone] Encounter Details Date Type Department Care Team (Latest Contact Info) Description 11/14/2016 Orders Only [facility] CLINCONV Provider, MD Dwight [address] [place], [place] [id number] Social History Tobacco Use Types Packs/Day Years Used Date Smoking Tobacco: Former Comments:Smoking History Pac ks/day: 2 Packs Alcohol Use Standard Drinks/Week Comments Yes 0 (1 standard drink = 0.6 oz pur e alcohol) Sex and Gender Information Value Date Recorded Sex Assigned at Not on file Legal Sex Male 1:59 AM 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 us Historical Provider Final Res ult documented in [...] documented as of this encounter Care Teams J2Ee Engineer Relationship Specialty Start Date End Date Jean Raygoza MD PCP - General 01/04/17 04/05/20 Elizabeth Kelly MD PCP - General Internal Medicine 04/06/20 Macho Harrison MD [address] [place] [facility] [place] [address] Surgeon Vascular Surgery 05/08/22 Colton Portillo MD [address] [place] [address] Consulting Physician Cardiovascular Disease 06/26/22 documented as of this encounter
--- OUTSIDE RECORDS SUMMARY | 2025-02-15 13:29 | XMS_ITS | CONTINUITY OF CARE DOCUMENT ---
Author Name sunny correa Address Unknown Organization [facility] Address [address] [place] [address] [address] [place] [address] Phone [phone] Care Team Providers Care Jewelry Finisher Name Role Phone MANNY SERRA MD Unavailable [phone] MANNY SERRA MD Unavailable [phone] INSURANCE PROVIDERS Payer name Policy type / Coverage type [place] [employer] party ID [employer] [facility] Other [id number]
--- OUTSIDE RECORDS SUMMARY | 2025-02-15 13:29 | XMS_ITS | Patient Health Record ---
Author Organization [facility] Address [address] [place] [address] Care Team Providers Care Racquet Maker Name Role Phone Elizabeth Kelly Primary Care Provider UnavailDanica Dickey Unavailable [phone] Danica Lopez MD Unavailable Unavailable Allergies No Known Allergies Results Component Value Reference Range Notes CBC w auto diff Reviewed date:08/04/2024 04:14:07 PM Interpretation: Performing Lab:[facility] , [address] [place] [address]. [place] [address] Notes/Report: WBC 5.9 3.8-9.9 K/cumm Hgb 13.8 13.0-17.5 g/dL Hct 40.5 38.9-50.3 % Platelet Ct 181 150-400 K/cumm MPV 10.4 9.1-12.3 fL RBC 3.92 4.30-5.80 M/cumm MCV 103.3 81.3-96.4 fL MCH 35.2 27.1-33.3 pg MCHC 34.1 32.3-35.7 g/dL RDW CV 13.8 11.1-14.9 % RDW SD 52.1 35.7-48.1 fL NRBC Abs Auto 0.00 0.00-0.01 K/cumm Comprehensive metabolic pane l (CMP) Reviewed date:08/04/2024 04:14:08 PM Interpretation: Performing Lab:[facility] , [facility]. [place] [address] Notes/Report: Sodium 143 135-145 mmol/L Plasma Potassium 3.9 3.3-4.9 mmol/L Chloride 105 97-110 mmol/L Total CO2 25 22-32 mmol/L Anion Gap 13 2-15 mmol/L BUN 11 6-25 mg/dL Creatinine 0.69 0.80-1.30 mg/dL Glucose 106 70-199 mg/dL Interpretive Data Fasting glucose >/= 126 mg/dl is diagnostic for diabetes. Fasting is defined as no caloric intake for at least 8 hours. Fasting glucose between 100 mg/dl to 125 mg/dl is diagnostic of prediabetes. In a patient with classic symptoms of hyperglycemia or hyperglycemic crisis, a random glucose >/= 200 mg/dl is diagnostic for diabetes. In the absence of unequivocal hyperglycemia, results should be confirmed by repeat testing. The classification and Diagnosis of Diabetes Diabetes Care 202; 46: S19-S40. Current interpretive data was last revised 2022. Total Calcium 8.9 8.5-10.3 mg/dL Total Bilirubin 0.5 0.1-1.2 mg/dL Plasma Total Protein 7.2 6.5-8.5 g/dL Albumin 4.3 3.5-5.0 g/dL Alkaline Phosphatase 72 40-130 Units/L ALT 20 7-55 Units/L AST 16 10-50 Units/L QTB Gold Reviewed date:08/06/2024 09:18:01 PM Interpretation: Performing Lab:[facility] , [address] [place] [address]. [facility] [address] Notes/Report: QuantiFERON TB Gold Negative Negative No interferon-gamma response to M. tuberculosis antigens was detected. Latent infection with M. tuberculosis is unlikely. A single negative result does not exclude infection with M. tuberculosis. In patients at high risk for M.tuberculosis infection, a second test should be considered in accordance with the 2017 ATS/IDSA/CDC Clinical Practice Guidelines for Diagnosis of Tuberculosis in Adults and Children [Lewinsohn DM et. al. Clin. Infect. Dis. 2017;64(2):111-115]. The reference range for the 'TB1 Ag minus Nil Result' and 'TB2 Ag minus Nil Result' is an Interferon-gamma level <0.35 IU/mL. TB-Nil 0.05 TB2-Nil 0.03 Mitogen-Nil 6.09 NIL 0.01 Test Performed by: [facility] [address] [place] [address] [place] Supervisor: Lillian Rosado Ph.D.; CLIA# [id number] CBC w auto diff Reviewed date:02/09/2025 05:11:48 PM Interpretation: Performing Lab:[facility] , [address] [place] [address]. [place] [address] Notes/Report: WBC 5.69 3.80-9.90 K/cumm Hgb 14.7 13.0-17.5 g/dL Hct 44.1 38.9-50.3 % Platelet Ct 190 150-400 K/cumm MPV 9.7 9.1-12.3 fL RBC 4.30 4.30-5.80 M/cumm MCV 102.6 81.3-96.4 fL MCH 34.2 27.1-33.3 pg MCHC 33.3 32.3-35.7 g/dL RDW CV 13.6 11.1-14.9 % RDW SD 51.0 35.7-48.1 fL NRBC Abs Auto 0.00 0.00-0.01 K/cumm Comprehensive metabolic pane l (CMP) Reviewed date:02/09/2025 05:11:48 PM Interpretation: Performing Lab:[facility] , [address] [place] [address]. [place] [address] Notes/Report: Sodium 140 135-145 mmol/L Plasma Potassium 3.9 3.3-4.9 mmol/L Chloride 102 97-110 mmol/L Total CO2 25 22-32 mmol/L Anion Gap 13 2-15 mmol/L BUN 13 6-25 mg/dL Creatinine 0.75 0.80-1.30 mg/dL Glucose 97 70-199 mg/dL Interpretive Data Fasting glucose >/= 126 mg/dl is diagnostic for diabetes. Fasting is defined as no caloric intake for at least 8 hours. Fasting glucose between 100 mg/dl to 125 mg/dl is diagnostic of prediabetes. In a patient with classic symptoms of hyperglycemia or hyperglycemic crisis, a random glucose >/= 200 mg/dl is diagnostic for diabetes. In the absence of unequivocal hyperglycemia, results should be confirmed by repeat testing. The classification and Diagnosis of Diabetes Diabetes Care 202; 46: S19-S40. Current interpretive data was last revised 2022. Total Calcium 9.2 8.5-10.3 mg/dL Total Bilirubin 0.5 0.1-1.2 mg/dL Plasma Total Protein 7.6 6.5-8.5 g/dL Albumin 4.4 3.5-5.0 g/dL Alkaline Phosphatase 82 40-130 Units/L ALT 22 7-55 Units/L AST 31 10-50 Units/L Differential Automated Reviewed date:08/04/2024 04:14:07 PM Interpretation: Performing Lab:[facility] , [address] [place] [address]. [facility] [id number] Notes/Report: Neut Abs 4.5 1.5-6.5 K/cumm ImmGran Abs 0.0 0.0-0.1 K/cumm Lymphocyte Abs 0.7 0.8-3.3 K/cumm [place] Abs 0.6 0.2-0.8 K/cumm Eos Abs 0.1 0.0-0.5 K/cumm Baso Abs 0.1 0.0-0.1 K/cumm Neut Pct 75.4 Interpretive Data Percent cell count reference ranges are not reported, since discordance with absolute values may lead to misinterpretation of CBC data. Current Interpretive Data was last revised on 2017. ImmGran Pct 0.3 Interpretive Data Percent cell count reference ranges are not reported, since discordance with absolute values may lead to misinterpretation of CBC data. Current Interpretive Data was last revised on 2017. Lymph Pct 11.8 Interpretive Data Percent cell count reference ranges are not reported, since discordance with absolute values may lead to misinterpretation of CBC data. Current Interpretive Data was last revised on 2017. [place] Pct 10.3 Interpretive Data Percent cell count reference ranges are not reported, since discordance with absolute values may lead to misinterpretation of CBC data. Current Interpretive Data was last revised on 2017. Eos Pct 1.4 Interpretive Data Percent cell count reference ranges are not reported, since discordance with absolute values may lead to misinterpretation of CBC data. Current Interpretive Data was last revised on 2017. Baso Pct 0.8 Interpretive Data Percent cell count reference ranges are not reported, since discordance with absolute values may lead to misinterpretation of CBC data. Current Interpretive Data was last revised on 2017. eGFR Reviewed date:08/04/2024 04:14:07 PM Interpretation: Performing Lab:[facility] , [address] [place] [address]. [facility] [address] Notes/Report: eGFR >90 >=60 mL/min/1.73 m2 Interpretive Data Reference Interval Normal >/= 90 mL/min/1.73m2 Mildly decreased* 60 - 89 mL/min/1.73m2 Mildly to moderately decreased 45 - 59 mL/min/1.73m2 Moderately to severely decreased 30 - 44 mL/min/1.73m2 Severely decreased 15 - 29 mL/min/1.73m2 Kidney Failure < 15 mL/min/1.73m2 *Relative to young adult level Estimated glomerular filtration rate is determined by the 2020 CKD-EPI equation recommended by the National Kidney Foundation (A Unifying Approach to GFR Estimation: Recommendations of the NKF-ASK Task Force on Reassessing the Inclusion of Race in Diagnosing Kidney Disease, JASN 202). The CKD-EPI equation should not be used for patients with unstable renal function and has not been validated in children and those over 70. Current interpretive data was last reviewed 2021. eGFR Reviewed date:02/09/2025 05:11:48 PM Interpretation: Performing Lab:[facility] , [address] [place] [address]. [facility] [address] Notes/Report: eGFR >90 >=60 mL/min/1.73 m2 Interpretive Data Reference Interval Normal >/= 90 mL/min/1.73m2 Mildly decreased* 60 - 89 mL/min/1.73m2 Mildly to moderately decreased 45 - 59 mL/min/1.73m2 Moderately to severely decreased 30 - 44 mL/min/1.73m2 Severely decreased 15 - 29 mL/min/1.73m2 Kidney Failure < 15 mL/min/1.73m2 *Relative to young adult level Estimated glomerular filtration rate is determined by the 2020 CKD-EPI equation recommended by the National Kidney Foundation (A Unifying Approach to GFR Estimation: Recommendations of the NKF-ASK Task Force on Reassessing the Inclusion of Race in Diagnosing Kidney Disease, JASN 2020). The CKD-EPI equation should not be used for patients with unstable renal function and has not been validated in children and those over 70. Current interpretive data was last reviewed 2021. Differential Automated Reviewed date:02/09/2025 05:11:48 PM Interpretation: Performing Lab:[facility] , [address] [facility]. [place] [address] Notes/Report: Neut Abs 3.56 1.50-6.50 K/cumm ImmGran Abs 0.02 0.00-0.10 K/cumm Lymphocyte Abs 1.20 0.80-3.30 K/cumm [place] Abs 0.77 0.20-0.80 K/cumm Eos Abs 0.10 0.00-0.50 K/cumm Baso Abs 0.04 0.00-0.10 K/cumm Neut Pct 62.5 Interpretive Data Percent cell count reference ranges are not reported, since discordance with absolute values may lead to misinterpretation of CBC data. Current Interpretive Data was last revised on 2017. ImmGran Pct 0.4 Interpretive Data Percent cell count reference ranges are not reported, since discordance with absolute values may lead to misinterpretation of CBC data. Current Interpretive Data was last revised on 2017. Lymph Pct 21.1 Interpretive Data Percent cell count reference ranges are not reported, since discordance with absolute values may lead to misinterpretation of CBC data. Current Interpretive Data was last revised on 2017. [place] Pct 13.5 Interpretive Data Percent cell count reference ranges are not reported, since discordance with absolute values may lead to misinterpretation of CBC data. Current Interpretive Data was last revised on 2017. Eos Pct 1.8 Interpretive Data Percent cell count reference ranges are not reported, since discordance with absolute values may lead to misinterpretation of CBC data. Current Interpretive Data was last revised on 2017. Baso Pct 0.7 Interpretive Data Percent cell count reference ranges are not reported, since discordance with absolute values may lead to misinterpretation of CBC data. Current Interpretive Data was last revised on 2017. Reason For Referral Reason Rituxan Medicare/WPS No PA Req'd Diagnosis 1 Rheumatoid arthritis without rheumatoid factor, multiple sites (M06.09) Referring Provider First Name Danica Referring Provider Last Name John Referring Provider Speciality Rheumatolo gy Referred Organization [facility] carlie Referred Provider Danica Lopez Referred Address [address],[place], [place],[address], Referred Provider Specialty Rheumatology Procedure 1 Inj., rituximab, 10 mg (J9312) Referral Priority Routine Reason 01.07.2025 Rituxan J 9312 NO Medicare/WPS(ref [id number]) NO PA REQUIRED Diagnosis 1 Rheumatoid arthritis without rheumatoid factor, multiple sites (M06.09) Referral Organization [facility] carlie Referring Provider First Name Danica Referring Provider Last Name John Referring Provider Speciality Rheumatolo gy [facility] Referred Provider Danica Lopez Referred Address [address],[place], [place],[address], Referred Provider Specialty Rheumatology Procedure 1 Inj., rituximab, 10 mg (J9312) Referral Priority Routine Reason Rituxan J9312 [facility] REQU[place] Diagnosis 1 Rheumatoid arthritis without rheumatoid factor, multiple sites (M06.09) Referral Organization [facility] carlie Referring Provider First Name Danica Referring Provider Last Name John Referring Provider Speciality Rheumatolo gy [facility] Referred Provider Danica Lopez Referred Address [address],[place], [place],[address], Referred Provider Specialty Rheumatology Procedure 1 Inj., rituximab, 10 mg (J9312) Referral Priority Routine Medications Medication SIG (Take, Route, Frequency, Duration) Notes Start Date End Date Status Docusate Sodium 250 mg take 1 capsule (2 50 mg) by oral route once daily at bedtime as needed Oral 1 Active Zinc 30 mg daily oral *Pick strength-form from SignNow for eRX* Active Fluticasone Propionate (Inhal) 50 MCG/ACT inhale 2 sprays (100 mcg) in each nostril by intranasal route once daily Inhalation Active Aspirin Adult Low Strength 81 MG take 1 tablet (81 mg) by oral route once daily Oral 1 Active predniSONE 5 MG TAKE 1 TABLET BY MOUTH EVERY DAY for 30 Active Pravastatin Sodium 40 MG take 1 tablet (40 mg) by oral route once daily Oral 1 Active predniSONE 2.5 MG TAKE 1 TABLET BY MOUTH EVERY DAY for 30 Active Gabapentin 300 MG take 1 capsule at bedtime Oral Active Methotrexate Sodium 2.5 MG TAKE 8 TABLETS BY MOUTH WEEKLY for 90 Active Vitamin C 500 mg take 1 tablet by oral route once Oral 1 Active amLODIPine Besylate 10 mg TAKE ONE TABLET BY MOUTH DAILY *FOR BLOOD PRESSURE* for 90 Active Vitamin D3 25 MCG (1000 UT) take 1 capsule by oral route once Oral 1 Active Cetirizine HCl 10 mg TAKE ONE TABLET BY MOUTH DAILY *FOR ALLERGIES* for 90 Active Folic Acid 1 MG take 1 tablet (1 mg) by oral route once daily Oral 1 Active Xarelto 20 MG take 1 tablet (20 mg) by oral route bid Oral 1 Active Quercetin 500 mg take 1 capsule by oral route once oral 1 Active ProAir RespiClick 90 mcg/actuation 2 puffs q 4-6 hrs inhalation *Pick strength-form from SignNow for eRX* Active traZODone HCl 150 MG take 1 tablet at bedtime Oral Active Problems Problem Type SNOMED Code ICD Code Onset Dates Problem Status W/U Status Risk Notes Problem [id number] Rheumatoid arthritis without rheumatoid factor, multiple sites (M06.09) Active confirmed Problem Hx of malignant melanoma (Z85.820) Active confirmed Vital Signs Heart Rate 60 /min 02/09/2025 Temperature 97.9 degrees Fahrenheit 02/09/2025 Height-cm 187.96 cm 02/09/2025 Blood pressure diastolic 93 mm Hg 02/09/2025 Weight-kg 99.79 kg 02/09/2025 Height 74 in 02/09/2025 Blood pressure systolic 151 mm Hg 02/09/2025 Weight 220 lbs 02/09/2025 BMI 28.24 kg/m2 02/09/2025 Encounters Encounter Location Date Provider Diagnosis [facility] [address] [facility] [address] [place] [address] 02/18/2024 Danica Du Rheumatoid arthritis without rheumatoid factor, multiple sites M06.09 [facility] [address] [place] [address] 08/04/2024 Danica Du Rheumatoid arthritis without rheumatoid factor, multiple sites M06.09 [facility] [address] [place] [address] 08/04/2024 Danica Du Rheumatoid arthritis without rheumatoid factor, multiple sites M06.09 ; High risk medication use Z79.899 and Hx of malignant melanoma Z85.820 [facility] [address] [facility] [place] [address] 08/18/2024 Danica Lopez Rheumatoid arthritis without rheumatoid factor, multiple sites M06.09 [facility] [address] [facility] [address] [address] [place] [address] 02/09/2025 Danica Lopez Rheumatoid arthritis without rheumatoid factor, multiple sites M06.09 [facility] [address] [facility] [facility] [place] [address] 08/04/2024 Danica Lopez [facility] [address] [facility] [place] [address] 08/18/2024 Danica Lopez Assessments Encounter Date Diagnosis (ICD Code) Assessment Notes Treatment Notes Treatment Clinical Notes Section Notes 02/18/2024 Rheumatoid arthritis without rheumatoid factor, multiple sites (ICD-10 - M06.09) 08/04/2024 Rheumatoid arthritis without rheumatoid factor, multiple sites (ICD-10 - M06.09) clinically stable, rituxan helping, will continue, als continue methotrexate 20mg/wk and low dose prednisone, labs today 08/04/2024 Rheumatoid arthritis without rheumatoid factor, multiple sites (ICD-10 - M06.09) 08/18/2024 Rheumatoid arthritis without rheumatoid factor, multiple sites (ICD-10 - M06.09) 02/09/2025 Rheumatoid arthritis without rheumatoid factor, multiple sites (ICD-10 - M06.09) 08/04/2024 High risk medication use (ICD-10 - Z79.899) clinically stable, rituxan helping, will continue, als continue methotrexate 20mg/wk and low dose prednisone, labs today 08/04/2024 Hx of malignant melanoma (ICD-10 - Z85.820) clinically stable, rituxan helping, will continue, als continue methotrexate 20mg/wk and low dose prednisone, labs today Plan Of Treatment Pending Test Test Name Order Date CBC With Differential/Platelet 3 CBC With Differential/Platelet 4 CMP - Comp. Metabolic Panel (14) 024 CMP - Comp. Metabolic Panel (14) 023 Quantiferon Gold 08/20/2023 Next Appt Details Provider Name:Danica Lopez, 02/23 10:00:00 AM, [address], [place], [address], Provider Name:Danica Lopez, 02/23 12:00:00 PM, [address], [place], [address], Insurance Providers Payer Name Payer Address Payer Phone Subscriber Number Group Number Insured Name Patient Relationship to Insured Coverage Start Date Coverage End Date Medicare [address] [address] [place] [address] [id number] Juventino Chappell Self - patient is the insured [facility] Medicare Supplement [address] [address] [place] [address] [id number] Juventino Chappell Self - patient is the insured Medical (General) History Medical History History ICD Code Aortic aneurysm; COPD (chronic obstructive pulmonary dise ase); Coronary artery disease; DVT (deep venous thrombosis); GERD (gastroesophageal reflux disease); Hyperlipidemia; Lupus anticoagulant positive; Melanoma; Neuropathy; Pulmonary Embolism; Rheumatoid arthritis; Sleep apnea; Surgical History Surgery Date(Month/Year) Hernia Repair; 2022-06-26 Angioplasty of iliac vein with insertion of stent; 2022-06-26 Nasal septum repair; 2022-06-26 Skin cancer excised; 2022-06-26 Knee replacement; 2022-06-26
--- OUTSIDE RECORDS SUMMARY | 2025-02-15 13:29 | XMS_ITS | Referral Summary ---
Author Organization [facility] Address [address] [place] [id number] Care Team Providers Care Computer Systems Security Analyst Name Role Phone Leticia Elizabeth Blood MD Primary Care Provider [phone] Macho Harrison MD Unavailable [phone] Colton Portillo MD Unavailable [phone] Encounters Date Type Department Care Team Description 02/09/2025 1:16 PM CDT - 02/09/2025 11:59 PM CDT Hospital Encounter [facility] [address] [place] [address] Discharge Disposition: Discharge to home or self care 02/02/2025 10:45 AM CDT Office Visit [facility] Pulmonology [address] [facility] [address] [place] [id number] Kat Ruiz MD Simple chronic bronchitis (HCC) (Primary Dx); Pulmonary air trapping; History of pulmonary embolism; Multiple pulmonary nodules; Psychophysiological insomnia; Cigarette nicotine dependence in remission; Hyperinflation of lungs; Rheumatoid arthritis involving multiple sites with positive rheumatoid factor (HCC) 12/30/2024 9:56 AM CDT - 12/30/2024 11:59 PM CDT Hospital Encounter [facility] [address] [place] [address] Simple chronic bronchitis (HCC); Pulmonary air trapping; Solitary pulmonary nodule; Cigarette nicotine dependence in remission; Psychophysiological insomnia Discharge Disposition: Discharge to home or self care from Last 3 Months Allergies Active Allergy Reactions Criticality Noted Date Comments Adhesive Rash Medium 07/06/2022 (Can tolerate Medipore) Medications rivaroxaban (XARELTO) tablet take 1 tablet by oral route every day with the evening meal 0 0 09/27/19 16 Active aspirin (ASPIR-81) 81 mg tablet take 1 tablet by oral route every day 0 0 08/17/20 13 Active multivitamin tablet tablet take 1 tablet by oral route every day with food 0 0 08/17/20 13 Active pravastatin (PRAVACHOL) 40 mg tabletIndicati ons:hyperlipid emia Take 1 tablet (40 mg total) by mouth daily 02/08/20 20 Active ascorbic acid (VITAMIN C) 1,000 mg tablet Take 1 tablet (1,000 mg total) by mouth daily Active zinc 50 mg tablet Take 50 mg by mouth daily Active methotrexate 2.5 mg tablet TAKE 10 TABLETS BY MOUTH EVERY 7 DAYS. 120 tablet 1 05/09/20 22 Active predniSONE (DELTASONE) 2.5 mg tablet TAKE 1 TABLET BY MOUTH EVERY DAY 90 tablet 2 05/26/20 22 Active cholecalcifero l (VITAMIN D-3) 5,000 unit capsule Take 1 capsule (5,000 Units total) by mouth daily Active docusate sodium (COLACE) 100 mg capsuleIndicat ions:constipat ion Take 1 capsule (100 mg total) by mouth daily Active quercetin 500 mg capsule Take 500 mg by mouth daily 12/13/19 22 Active acetaminophen (TYLENOL) 500 mg tablet Take 1 tablet (500 mg total) by mouth every 6 (six) hours as needed for pain Active predniSONE (DELTASONE) 5 mg tablet TAKE 1 TABLET BY MOUTH EVERY DAY 90 tablet 08/27/20 22 Active cyclobenzaprin e (FLEXERIL) 10 mg tablet Take 1 tablet (10 mg total) by mouth 2 (two) times a day as needed 04/04/20 23 Active albuterol HFA (Ventolin HFA) 90 mcg/actuation inhaler Inhale 2 puffs every 6 (six) hours as needed for shortness of breath 1 each 3 04/16/20 23 Active Additional Information Patient not taking.Informant: Self, Reported on 02/02/2025 folic acid (FOLVITE) 1 mg tablet TAKE 1 TABLET BY MOUTH EVERY DAY 90 tablet 2 05/07/20 23 Active riTUXimab (RITUXAN) 10 mg/mL injection Infuse into a venous catheter Active gel dressing (Solosite Wound Gel) gel Patient will need to topically apply wound gel to his left lower extremity wound once a day 30 mL 1 01/23/20 24 Active bismuth tribrom-petrol atum,wh (Xeroform) 5 X 9 bandage Apply 1 Application topically daily 5 each 1 01/30/20 24 Active fluticasone propionate (FLOVENT DISKUS) 50 mcg/actuation diskus inhaler inhale 2 sprays (100 mcg) in each nostril by intranasal route once daily Inhalation Active traMADoL (ULTRAM) 50 mg tablet Take 1 tablet (50 mg total) by mouth every 6 (six) hours as needed for pain 30 tablet 03/13/20 24 Active traZODone (DESYREL) 150 mg tablet TAKE 1 TABLET BY MOUTH EVERY DAY AT NIGHT 90 tablet 2 12/12/19 25 Active gabapentin (NEURONTIN) 400 mg capsule TAKE 1 CAPSULE BY MOUTH EVERY DAY 90 capsule 2 01/14/20 25 Active umeclidinium (INCRUSE ELLIPTA) 62.5 mcg/actuation blister with device Inhale 1 puff (62.5 mcg total) daily 30 each 6 02/03/20 25 025 Active umeclidinium (INCRUSE ELLIPTA) 62.5 mcg/actuation blister with device Inhale 1 puff (62.5 mcg total) daily 30 each 3 10/27/19 25 025 Discontinued Active Problems Problem Noted Date Diagnosed Date Hyperinflation of lungs 02/02/2025 Chronic skin ulcer with fat layer exposed 2023 Traumatic hematoma of left lower leg 01/23/2024 Assessment & Plan (02/06/2024 1:54 PM CDT): Healing, super visualizing, previous soft tissue infection resolved. Continue Bactrim regimen. Continue daily dressing changes utilizing Xeroform, gauze, Kerlix, Eugene wrap. Follow-up in the office in 1 week for re-evaluation Assessment & Plan (01/23/2024 3:04 PM CDT): Hematoma evacuated in office, patient was redressed. Patient tolerated procedure well. Tramadol sent to pharmacy. Patient educated to utilize daily dressing changes wound gel, gauze, Kerlix, Eugene wrap, activity as tolerated. Will plan for patient to follow-up in 1-2 weeks for wound check Multiple pulmonary nodules 10/22/2023 AAA (abdominal aortic aneurysm) without rupture 07/13/2022 Assessment & Plan (10/08/2024 10:16 AM INFORMATION TECHNOLOGY ANALYST): Status post EVAR. Duplex shows stable stent graft repair decrease aneurysm sac size with no endoleak. Follow up 1 year with duplex. Assessment & Plan (09/20/2023 12:50 PM INFORMATION TECHNOLOGY ANALYST): Impression: Patient is status post endovascular repair of a 5.3 cm infrarenal abdominal aortic aneurysms. CT of abdomen pelvis reveals a patent endograft with a decreasing pokagon aneurysms sac now measuring 3.7 cm with no endoleak seen. Plan: Continue ongoing risk factor modifications. -continue dual antiplatelet therapy of aspirin and Xarelto. -patient to follow-up in 1 year for re-evaluation with abdominal aortic duplex. Abnormal stress test 07/02/2022 Overview (07/02/2022): Added automatically from request for surgery [id number] MCC (current) use of systemic steroids Assessment & Plan (06/27/2022 9:56 AM CDT): Has been on prednisone 7.5 mg daily for some time. Once his current flare is resolved and he is back on humira/MTX combo we can work towards a slow wean. Encounter for long-term (cur rent) use of high-risk medication 06/27/2022 Assessment & Plan (06/27/2022 1:25 PM CDT): Long-term use of high-risk medication requiring regular monitoring. Labs ordered, no s/s of med tox or infection. Encouraged to work with PCP to make sure all recommended cancer screens and vaccinations are complete. Avoid live-vaccines unless reviewed with consumer insight analyst first. Discussed that we strongly recommend the flu and covid vaccines but he continues to decline. He will talk to his PCP about getting his second pneumonia vaccine though Abdominal aortic aneurysm (AAA) without rupture 05/16/2022 Assessment & Plan (09/14/2022 1:51 PM INFORMATION TECHNOLOGY ANALYST): Patient is status post AAA repair with PVR 07/13/2022 which was measuring 5.3 cm. States he is recovering well. Denies any concerns or complaints or claudication symptoms. Follow-up CTA shows the aneurysm is not measuring 5.1 cm with no endoleak. Discussed patient with Dr. Mary Harrison. Plan: Return in 1 year for routine surveillance with CTA. Assessment & Plan (08/01/2022 3:47 PM INFORMATION TECHNOLOGY ANALYST): Impression: Patient is status post endovascular repair of an infrarenal abdominal aortic aneurysm. Patient denies any abdominal, back, flank pain or symptoms of claudication, ischemic rest pain or ulcerations to his lower extremity. Plan: Continue ongoing risk factor modifications. Patient to follow-up in 4 weeks for re-evaluation with CT of abdomen pelvis. Assessment & Plan (06/27/2022 9:55 AM CDT): Seropositive RA. Had been on humira and MTX and was quite stable but at his last visit in October he chose to stop humira due to his concerns regarding possible adverse reactions and he also had not had TB testing done. He has remained on MTX at 25 mg every week and prednisone 7.5 mg daily. He is scheduled for a percutaneous AAA repair on Saturday. He was instructed to hold his MTX this week and next. He may continue prednisone at 7.5 mg daily as it is likely a bit late to work on weaning down prior to his upcoming surgery. He should avoid NSAIDs As long as his procedure is performed percutaneously, He should be able to resume the MTX next Saturday as long as no signs of infection. I will place the orders for his labs so we can resume humira soon. Assessment & Plan (06/12/2022 2:39 PM CDT): After reviewed the patient's CT scan aneurysm measures 5.3 cm and he is good endovascular candidate. I have recommended proceeding with percutaneous endovascular aneurysm repair. The procedure its indications and all associated risks have been explained to the patient. His questions have been answered and he wishes to proceed. Assessment & Plan (05/16/2022 10:25 AM CDT): Underwent screening ultrasound showed a 5.3 cm infrarenal abdominal aortic aneurysm. Will follow-up with CT angiogram for further evaluation. Follow-up 2 weeks. History of pulmonary embolism 08/15/2021 Lower extremity ulceration, left, limited to breakdown of skin 05/24/2021 Centrilobular emphysema 08/08/2020 Pulmonary embolism 07/27/2020 Solitary pulmonary nodule 06/04/2019 Thromboembolic disorder 06/04/2019 Cigarette nicotine dependence in remission 06/04 Psychophysiological insomnia 06/04/2019 Calculus of gallbladder with out cholecystitis without obstruction 06/04/2019 Pulmonary air trapping 10/12/2016 Chronic obstructive pulmonary disease 01/20/2016 Personal history of nicotine dependence 01/20/20 16 Shortness of breath 01/20/2016 Low back pain 09/27/2015 Overview (12/07/2016): Low back pain without sciatica, unspecified back pain laterality Deep vein thrombosis (DVT) of lower extremity Overview (12/07/2016): Dvt femoral (deep venous thrombosis) Assessment & Plan (05/16/2022 10:24 AM CDT): 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 Patient has done very well no residual sequelae. Continue compression therapy Primary osteoarthritis of both knees 06/07/2015 Overview (12/07/2016): Primary osteoarthritis of both knees Drug indicated 06/07/2015 Overview (12/07/2016): Encounter for long-term (current) use of other high-risk medications Obstructive sleep apnea 01/16/2014 Overview (12/07/2016): Sleep apnea Hyperlipidemia 12/09/2012 Overview (12/07/2016): Hyperlipidemia Assessment & Plan (10/08/2024 10:16 AM INFORMATION TECHNOLOGY ANALYST): Hyperlipidemia chronic controlled. Continue pravastatin. Assessment & Plan (09/20/2023 12:50 PM INFORMATION TECHNOLOGY ANALYST): Impression: Chronic stable. Plan: Continue pravastatin Assessment & Plan (06/12/2022 2:38 PM CDT): Hyperlipidemia chronic and controlled. Continue statin therapy. Assessment & Plan (05/16/2022 10:25 AM CDT): Hyperlipidemia chronic and controlled. Continue medical therapy. Rheumatoid arthritis 12/09/2012 Overview (12/07/2016): Rheumatoid arthritis Assessment & Plan (06/27/2022 1:26 PM CDT): Suboptimal control with recent flare. Only on MTX 25 mg every 7 days and prednisone 7.5 mg daily. After he recovers from his AAA repair he will have his routine blood work updated at [facility] and we can trial the addition of sulfasalazine to his methotrexate. He understands we will wait to make any adjustments in his medication until after recovered from his percutaneous AAA repair and that his lab work is updated. I will contact him after his test results are back to discuss next steps. If the addition of sulfasalazine is not helpful, we will start the process for the initiation of infliximab infusions. For now, start arthritis strength acetaminophen per package directions and may use voltaren gel topically to hands no more than 3x a day according to package directions. Assessment & Plan (06/12/2022 2:40 PM CDT): Chronic and controlled. Continue medical therapy. Immunizations Immunization Administration Dates Next Due Influenza, Quadrivalent, Spl it, Preservative Free, Intramuscular 06/14/2020,06/04/2019,07/28/2018,07/16 Influenza, Trivalent, High D ose, Split, Preservative Free, Intramuscular 07/12/2015 Influenza, Trivalent, Preser vative Free, Intramuscular 07/17/2017,06/13/2017 Influenza, Trivalent, Split, Preservative Free, Intradermal 08/04/2014 Influenza, Unspecified 06/02/2021,2018,03/02/2016,01/05 Pneumococcal Polysaccharide PPV23 09/01/2010 Td, Not Adsorbed 12/12/2021 ZOSTER LIVE 03/02/2016,01/06/2016 Social History Tobacco Use Types Packs/Day Years Used Date Smoking Tobacco: Former Cigarettes 2 30 1 975 - 2004 Smokeless Tobacco: Never Tobacco Cessation:Counseling Given: Not Answered Comments:Smoking History Packs/day: 2 Packs quit 2004 Alcohol Use Standard Drinks/Week Comments Yes 0 (1 standard drink = 0.6 oz pur e alcohol) AUDIT-C Answer Date Recorded Q1: How often do you have a drink containing alcohol? 4 or more times a week 03/13/2024 Q2: How many drinks containi ng alcohol do you have on a typical day when you are drinking? 3 or 4 Q3: How often do you have si x or more drinks on one occasion? Never 03/13/2024 PHQ-2 Answer Date Recorded PHQ-2 Total Score (If total score is 3 or more points, staff should administer the PHQ-9) 0 11/07/2021 Personal Safety Answer Date Recorded Have you ever been in or are you currently in a harmful physical or emotional relationship or is someone making you feel afraid or unsafe? Denies 03/13/2024 Sex and Gender Information Value Date Recorded Sex Assigned at Not on file Legal Sex Male 1:59 AM INFORMATION TECHNOLOGY ANALYST Gender Identity Not on file Sexual Orientation Not on file Last Filed Vital Signs Vital Sign Reading Time Taken Comments Blood Pressure 116/74 02/02/2025 10:32 AM CDT Pulse 60 02/02/2025 10:32 AM CDT Temperature 36.7 C (98 F) 10/27/2024 10:46 AM INFORMATION TECHNOLOGY ANALYST Respiratory Rate 18 02/02/2025 10:32 AM CDT Oxygen Saturation 97% 02/02/2025 10:32 AM CDT Inhaled Oxygen Concentration - - Weight 101.2 kg (223 lb) 02/02/2025 10:32 AM CDT Height 188 cm (6' 2) 02/02/2025 10:32 AM CDT Body Mass Index 28.63 02/02/2025 10:32 AM CDT Plan of Treatment Not on file Medical Devices Implanted Type Area Tool And Gauge Inspector Device Identifier Shelf Expiration Date Model / Serial / Lot [employer] Angio-Seal Vip 6fr Closere Device [id number] - [id number] Implanted:Qty: 1 on 07/04/2022 by Haresh Solis MD at [facility] 01/30/2023 [id number] / / [id number] [employer] Perclose 6fr Vascular Closure [id number] - [id number] Implanted:Qty: 4 on 07/13/2022 by Macho Harrison MD at [facility] [employer] [id number] / / [employer] Dobbins Excluder C3 23mm 14.5mm 19-21mm 12-13.5mm 12cm Sinusoidal [id number] - [id number] - [id number] Implanted:Qty: 1 on 07/13/2022 by Macho Harrison MD at [facility] N/A: Aorta [employer] [id number] 12/02/2024 [id number] / [id number] / [employer] Excluder 16mm 13.5-14.5mm 13.5cm Stent Abrasion Resistant [id number] - [id number] - [id number] Implanted:Qty: 1 on 07/13/2022 by Macho Harrison MD at [facility] [employer] [id number] 01/10/2025 [id number] / [id number] / [employer] Excluder 18mm 14.5-16.5mm 13.5cm Stent Abrasion Resistant [id number] - [id number] - [id number] Implanted:Qty: 1 on 07/13/2022 by Macho Harrison MD at [facility] [employer] [id number] 04/15/2025 [id number] / [id number] / Procedures Procedure Name Priority Date/Time Associated Diagnosis Comments EGFR Routine 02/09/2025 10:08 AM CDT DIFFERENTIAL AUTO Routine 02/09/2025 10: 08 AM CDT COMPREHENSIVE METABOLIC PANEL Routine 02/09/2025 10:08 AM CDT CBC WITH AUTO DIFFERENTIAL Routine 02/09/2025 10:08 AM CDT PULMONARY FUNCTION TEST (PFT) Routine 12/30/2024 11:02 AM CDT Simple chronic bronchitis (HCC) Pulmonary air trapping Solitary pulmonary nodule Cigarette nicotine dependence in remission Psychophysiologica l insomnia CTA ABDOMEN PELVIS W WO CONTRAST Schedule Routine, Read Routine (OP Routine) 09/16/2023 8:47 AM INFORMATION TECHNOLOGY ANALYST Aftercare following surgery of the circulatory system HEPATITIS C ANTIBODY Routine 06/29/2022 12:12 PM CDT from Last 3 Months or Most Recently Relevant to Health Maintenance Results * eGFR (02/09/2025 10:08 AM CDT) eGFR >90 >=60 mL/min/1. 73 m2 Comment: Interpretive Data Reference Interval Normal >/= 90 [...] Current interpretive data was last reviewed 2021. Blood 02/09/2025 10:0 8 AM CDT 02/09/2025 2:22 PM CDT us Danica Lopez MD LAB BLOOD ORDERABLES Final Resul t [facility] [address] [place] [address] * Differential, auto (02/09/2025 10:08 AM CDT) Neutrophil abs 3.56 1.50 - 6.50 K/cumm Imm gran abs 0.02 0.00 - 0.10 K/cumm [facility] Lymphocyte abs 1.20 0.80 - 3.30 K/cumm [facility] Monocyte abs 0.77 0.20 - 0.80 K/cumm [facility] Eosinophil abs 0.10 0.00 - 0.50 K/cumm [facility] Basophil abs 0.04 0.00 - 0.10 K/cumm [facility] Neutrophil pct 62.5 % [facility] Comment: Interpretive Data Percent cell count reference ranges are not reported, since discordance with absolute values may lead to misinterpretation of CBC data. Current Interpretive Data was last revised on 2017. Imm gran pct 0.4 % [facility] Comment: Interpretive Data Percent cell count reference ranges are not reported, since discordance with absolute values may lead to misinterpretation of CBC data. Current Interpretive Data was last revised on 2017. Lymphocyte pct 21.1 % [facility] Comment: Interpretive Data Percent cell count reference ranges are not reported, since discordance with absolute values may lead to misinterpretation of CBC data. Current Interpretive Data was last revised on 2017. Monocyte pct 13.5 % [facility] Comment: Interpretive Data Percent cell count reference ranges are not reported, since discordance with absolute values may lead to misinterpretation of CBC data. Current Interpretive Data was last revised on 2017. Eosinophil pct 1.8 % [facility] Comment: Interpretive Data Percent cell count reference ranges are not reported, since discordance with absolute values may lead to misinterpretation of CBC data. Current Interpretive Data was last revised on 2017. Basophil pct 0.7 % [facility] Comment: Interpretive Data Percent cell count reference ranges are not reported, since discordance with absolute values may lead to misinterpretation of CBC data. Current Interpretive Data was last revised on 2017. Blood 02/09/2025 10:0 8 AM CDT 02/09/2025 1:25 PM CDT us Danica Lopez MD LAB BLOOD ORDERABLES Final Resul t Performing Organization Address City/[facility]/ZIP Co de Phone Number [facility] [address] [email or web address] [address] * (ABNORMAL) CBC with auto differential (02/09/2025 10:08 AM CDT) WBC 5.69 3.80 - 9.90 K/cumm Hgb 14.7 13.0 - 17.5 g/dL [facility] Hct 44.1 38.9 - 50.3 % [facility] Plt 190 150 - 400 K/cumm [facility] MPV 9.7 9.1 - 12.3 fL [facility] RBC 4.30 4.30 - 5.80 M/cumm [facility] MCV 102.6(H) 81.3 - 96.4 fL [facility] MCH 34.2(H) 27.1 - 33.3 pg [facility] MCHC 33.3 32.3 - 35.7 g/dL [facility] RDW CV 13.6 11.1 - 14.9 % [facility] RDW SD 51.0(H) 35.7 - 48.1 fL [facility] NRBC abs 0.00 0.00 - 0.01 K/cumm [facility] Blood 02/09/2025 10:0 8 AM CDT 02/09/2025 1:25 PM CDT us Danica Lopez MD LAB BLOOD ORDERABLES Final Resul t Performing Organization Address City/[facility]/ZIP Co de Phone Number [facility] [address] Department [place] [address] * (ABNORMAL) Comprehensive metabolic panel (02/09/2025 10:08 AM CDT) Pathologist [facility] Sodium 140 135 - 145 mmol/L Potassium, pl 3.9 3.3 - 4.9 mmol/L [facility] Chloride 102 97 - 110 mmol/L [facility] CO2 25 22 - 32 mmol/L [facility] Anion gap 13 2 - 15 mmol/L [facility] BUN 13 6 - 25 mg/dL [facility] Creatinine 0.75(L) 0.80 - 1.30 mg/dL [facility] Glucose 97 70 - 199 mg/dL [facility] Comment: Interpretive Data Fasting glucose >/= 126 mg/dl [...] Current interpretive data was last revised 2022. Calcium 9.2 8.5 - 10.3 mg/dL [facility] Bilirubin, total 0.5 0.1 - 1.2 mg/dL [facility] Protein, pl 7.6 6.5 - 8.5 g/dL [facility] Albumin 4.4 3.5 - 5.0 g/dL [facility] Alk phos 82 40 - 130 Units/L [facility] ALT 22 7 - 55 Units/L [facility] AST 31 10 - 50 Units/L [facility] Blood 02/09/2025 10:0 8 AM CDT 02/09/2025 1:26 PM CDT us Danica Lopez MD LAB BLOOD ORDERABLES Final Resul t [facility] [address] [place] [address] * Pulmonary Function Test - (12/30/2024 11:02 AM CDT) [facility] FVC POST 5.68 L 12/30/2024 11:04 AM CDT [facility] FEV1 POST 3.84 L 12/30/2024 11:04 AM CDT [facility] [id number] 67.52 % 12/30/2024 11:04 AM CDT [facility] XPE15-44% POST 2.12 L/s 12/30/2024 11:04 AM CDT [facility] PEF POST 10.16 L/s 12/30/2024 11:04 AM CDT [facility] DLCOc SB 23.16 ml/(min*mm Hg) 12/30/2024 11:04 AM T [facility] DLCO/VA PRE 2.73 ml/(min*mm Hg*L) 12/30/2024 11:04 AM CDT [facility] VA 8.51 L 12/30/2024 11:04 AM T [facility] TLC PRE 10.35 L 12/30/2024 11:04 AM CDT [facility] VC PRE 5.81 L 12/30/2024 11:04 AM CDT [facility] IC PRE 3.92 L 12/30/2024 11:04 AM CDT [facility] FRC PL PRE 6.22 L 12/30/2024 11:04 AM CDT [facility] ERV PRE 1.68 L 12/30/2024 11:04 AM CDT [facility] RV PRE 4.55 L 12/30/2024 11:04 AM T [facility] RAW PRE 1.62 cmH2O*s/L 12/30/2024 11:04 AM CDT [facility] VTG 6.59 L 12/30/2024 11:04 AM T [facility] FVC PRE 5.81 L 12/30/2024 11:04 AM T [facility] FEV1 PRE 3.78 L 12/30/2024 11:04 AM CDT [facility] [id number] 65.15 % 12/30/2024 11:04 AM CDT [facility] VEF49-93% PRE 1.89 L/s 12/30/2024 11:04 AM T [facility] PEF PRE 9.33 L/s 12/30/2024 11:04 AM T [facility] Anatomical Region Laterality Modality PFT 12/30/2024 10:0 5 AM CDT Narrative 12/30/2024 3:42 PM CDT Spirometry demonstrates mild obstruction. There is no significant improvement post-bronchodilator therapy. Lung volumes demonstrate air trapping and hyperinflation. DLCO is mildly reduced, findings can be seen with pulmonary parenchymal/vascular disorders. Clinical correlation advised. 6 minute walk test - ambulatory O2 assessment study was performed. Patient maintained oxygen saturation within normal range and did not require supplemental oxygen with rest or ambulation. Electronically signed by Foreign Hagen MD, [facility] Pulmonary and Critical Care Medicine [facility] Kat Ruiz MD PFT ORDERABLES Final Resul t * CTA Abdomen Pelvis (09/16/2023 8:47 AM INFORMATION TECHNOLOGY ANALYST) Anatomical Region Laterality Modality Body N/A Computed Tomogra phy 09/16/2023 1:37 PM INFORMATION TECHNOLOGY ANALYST Narrative 09/16/2023 1:56 PM INFORMATION TECHNOLOGY ANALYST EXAM DESCRIPTION: CTA ABDOMEN PELVIS REASON FOR STUDY: AAA. 1 year follow-up of endovascular repair. TECHNIQUE: CTA scan of the abdomen and pelvis performed without and with intravenous and without oral contrast using helical scanning technique with dynamic intravenous contrast injection. Precontrast, arterial, and portal venous phase images of the abdomen and pelvis were acquired. Images reviewed with lung, soft tissue and bone windows. Reconstructed coronal and sagittal MPR images reviewed. All images stored on PACS. 3D MIP images rendered on scanning unit and reviewed at time of interpretation. Automated exposure control was used as a dose optimization technique for this examination. CONTRAST TYPE/DOSE: 100mL of IOVERSOL 350 MG IODINE/ML INTRAVENOUS SYRINGE injected via intravenous COMPARISON: 09/11/2022, 05/31/2022. REFERENCE: Unless otherwise specified, no follow-up imaging is recommended for incidental renal and adrenal lesions per consensus recommendations based on imaging criteria. Further lab evaluation could be pursued based on clinical findings. Management of the Incidental Renal Mass on CT: A White Paper of the ACR Incidental Findings Committee. J Am Christofer Radiol. 2018 Oct;15(2):264-273. Management of Incidental Adrenal Masses: A White Paper of the ACR Incidental Findings Committee. J Am Christofer Radiol. 2017 Apr;14(8):1831-5685. FINDINGS: VASCULATURE: No dissection,intramural hematoma, rupture, or penetrating atherosclerotic ulcer. No large vessel occlusion. CELIAC TRUNK: No flow limiting stenosis, dissection, or aneurysm. SUPERIOR MESENTERIC ARTERY: No flow limiting stenosis, dissection, or aneurysm. RIGHT RENAL ARTERY: Atherosclerotic changes at the origin of the right renal artery, stable. No definitive hemodynamically significant stenosis. LEFT RENAL ARTERY: No flow limiting stenosis, dissection, or aneurysm. INFERIOR MESENTERIC ARTERY: Occluded proximally. Reconstitution via SMA collaterals. AORTA: Endovascular repair of infrarenal abdominal aortic aneurysm is again noted. There has been interval decrease in size of the pokagon aneurysm sac. The sac measures 3.7 x 3.0 cm on axial image number 132. On coronal reconstructed images, maximum transverse dimension is 3 cm. On sagittal reconstructed images, the maximum AP dimension is 3.6 cm. Previous measurement is 5.1 x 3.9 The components of the endovascular graft enhance normally. The graft begins just below the level of the left renal artery origin, stable in position. There is no evidence of endoleak ILIAC ARTERIES: There are atherosclerotic changes of the origins of the internal and external iliac arteries. Patency is maintained. There is a stent within the left common iliac vein. LOWER CHEST: There is bibasilar scarring/atelectasis, slightly greater than on prior examination. There is no pleural or pericardial effusion. LIVER: Normal size. No identified cystic or solid masses. GALLBLADDER: Cholelithiasis. No wall thickening or inflammatory process. BILE DUCTS: No intrahepatic or extrahepatic ductal dilatation. SPLEEN: Normal size. No focal lesions. PANCREAS: There is a subtle hypoattenuating 6 mm focus within the neck of the pancreas on axial image 39 of series 11. This is too small to characterize, though does appear to be similar to previous examinations. Statistically this would represent a tiny IPMN. Attention at the time of follow-up for AAA is recommended. Alternatively this could represent some focal fatty infiltration. ADRENALS: Unremarkable. KIDNEYS/URINARY TRACT: The kidneys are symmetric in size. No suspicious cystic or solid mass. No obstructing urolithiasis. There are a few cortical hypodensities, too small to characterize. No hydronephrosis or hydroureter. The urinary bladder is thick walled. This may represent hypertrophy given underlying prostatomegaly and mass effect upon the base of the urinary bladder. Median lobe hypertrophy is similar in appearance compared to the previous examination. GI: The stomach is decompressed. Small bowel loops are normal in caliber. There is no wall thickening or obstruction. The appendix is normal. There is diverticulosis, without diverticulitis. PERITONEUM: There is no free intraperitoneal air. There is no free fluid. No mesenteric or upper abdominal lymphadenopathy. RETROPERITONEUM: No retroperitoneal mass or adenopathy. REPRODUCTIVE: Prostate gland is enlarged and heterogeneous. Correlate with PSA. MUSCULOSKELETAL: There is grade 1 anterolisthesis of L5 on S1 with bilateral pars defects. There is retrolisthesis of L3 on L4. Multilevel disc space narrowing is noted. 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 OTHER: There is a small fat containing inguinal hernia. Evidence of prior right inguinal hernia repair. IMPRESSION: 1. Redemonstration of endovascular repair of infrarenal abdominal aortic aneurysm. There has been interval decrease in size of the pokagon aneurysm sac, currently measuring 3.7 x 3.0 cm, previously 5.1 cm in maximum dimension. Endograft lumen enhances normally. There is no evidence of endoleak. 2. Prostatomegaly. Correlate with PSA circumferential wall thickening of the bladder could be due to hypertrophy. Correlate clinically with regards to cystitis. 3. Additional incidental findings as documented above, stable THIS IS AN ELECTRONICALLY VERIFIED FINAL REPORT 09/16/2023 1:56 PM - Electronically signed by Yazmin Mckee M.D. TW T: Report ID: [id number] Reading Location: [place] [id number] Procedure Note Yazmin Mckee MD - 09/16/2023 EXAM DESCRIPTION: CTA ABDOMEN PELVIS REASON FOR STUDY: AAA. 1 year follow-up of endovascular repair. TECHNIQUE: CTA scan of the abdomen and pelvis performed without and with intravenous and without oral contrast using helical scanning techniquewith dynamic intravenous contrast injection. Precontrast, arterial, and portal venous phase images of the abdomen and pelvis were acquired. Images reviewed with lung, soft tissue and bone windows. Reconstructed coronaland sagittal MPR images reviewed. All images stored on PACS. 3D MIP images rendered on scanning unit and reviewed at time of interpretation.Automated exposure control was used as a dose optimization technique for this examination. CONTRAST TYPE/DOSE: 100mL of IOVERSOL 350 MG IODINE/ML INTRAVENOUSSYRINGE injected via intravenous COMPARISON: 09/11/2022, 05/31/2022. REFERENCE: Unless otherwise specified, no follow-up imaging is recommendedfor incidental renal and adrenal lesions per consensus recommendations basedon imaging criteria. Further lab evaluation could be pursued based onclinical findings. Management of the Incidental Renal Mass on CT: A White Paper of the ACR Incidental Findings Committee. J Am Christofer Radiol. 2018 Oct;15(2):264-273. Management of Incidental Adrenal Masses: A White Paper of the ACRIncidental Findings Committee. J Am Christofer Radiol. 2017 Apr;14(8):1664-3144. FINDINGS: VASCULATURE: No dissection,intramural hematoma, rupture, or penetrating atherosclerotic ulcer. No large vessel occlusion. CELIAC TRUNK: No flow limiting stenosis, dissection, or aneurysm. SUPERIOR MESENTERIC ARTERY: No flow limiting stenosis, dissection, or aneurysm. RIGHT RENAL ARTERY: Atherosclerotic changes at the origin of the rightrenal artery, stable. No definitive hemodynamically significant stenosis. LEFT RENAL ARTERY: No flow limiting stenosis, dissection, or aneurysm. INFERIOR MESENTERIC ARTERY: Occluded proximally. Reconstitution via SMA collaterals. AORTA: Endovascular repair of infrarenal abdominal aortic aneurysm isagain noted. There has been interval decrease in size of the pokagon aneurysmsac. The sac measures 3.7 x 3.0 cm on axial image number 132. On coronal reconstructed images, maximum transverse dimension is 3 cm. On sagittal reconstructed images, the maximum AP dimension is 3.6 cm. Previous measurement is 5.1 x 3.9 The components of the endovascular graft enhance normally. The graft begins just below the level of the left renal artery origin, stable in position. There is no evidence of endoleak ILIAC ARTERIES: There are atherosclerotic changes of the origins of the internal and external iliac arteries. Patency is maintained. There is a stent within the left common iliac vein. LOWER CHEST: There is bibasilar scarring/atelectasis, slightly greaterthan on prior examination. There is no pleural or pericardial effusion. LIVER: Normal size. No identified cystic or solid masses. GALLBLADDER: Cholelithiasis. No wall thickening or inflammatoryprocess. BILE DUCTS: No intrahepatic or extrahepatic ductal dilatation. SPLEEN: Normal size. No focal lesions. PANCREAS: There is a subtle hypoattenuating 6 mm focus within the neckof the pancreas on axial image 39 of series 11. This is too small to characterize, though does appear to be similar to previous examinations. Statistically this would represent a tiny IPMN. Attention at the time of follow-up for AAA is recommended. Alternatively this could representsome focal fatty infiltration. ADRENALS: Unremarkable. KIDNEYS/URINARY TRACT: The kidneys are symmetric in size. No suspicious cystic or solid mass. No obstructing urolithiasis. There are a few cortical hypodensities, too small to characterize. No hydronephrosis or hydroureter. The urinary bladder is thick walled. This may represent hypertrophy given underlying prostatomegaly and mass effect upon the baseof the urinary bladder. Median lobe hypertrophy is similar in appearance compared to the previous examination. GI: The stomach is decompressed. Small bowel loops are normal incaliber. There is no wall thickening or obstruction. The appendix is normal.There is diverticulosis, without diverticulitis. PERITONEUM: There is no free intraperitoneal air. There is no freefluid. No mesenteric or upper abdominal lymphadenopathy. RETROPERITONEUM: No retroperitoneal mass or adenopathy. REPRODUCTIVE: Prostate gland is enlarged and heterogeneous. Correlatewith PSA. MUSCULOSKELETAL: There is grade 1 anterolisthesis of L5 on S1 withbilateral pars defects. There is retrolisthesis of L3 on L4. Multilevel disc space narrowing is noted. 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 OTHER: There is a small fat containing inguinal hernia. Evidence ofprior right inguinal hernia repair. IMPRESSION: 1. Redemonstration of endovascular repair of infrarenal abdominal aortic aneurysm. There has been interval decrease in size of the pokagon aneurysm sac, currently measuring 3.7 x 3.0 cm, previously 5.1 cm in maximumdimension. Endograft lumen enhances normally. There is no evidence of endoleak. 2. Prostatomegaly. Correlate with PSA circumferential wall thickeningof the bladder could be due to hypertrophy. Correlate clinically withregards to cystitis. 3. Additional incidental findings as documented above, stable THIS IS AN ELECTRONICALLY VERIFIED FINAL REPORT 09/16/2023 1:56 PM - Electronically signed by Yazmin Mckee M.D. TW T: Report ID: [id number] Reading Location: [place] [address] us Macho Harrison MD IM CT PROCEDURES Final Re sult * Hepatitis C antibody (06/29/2022 12:12 PM CDT) Hep C Ab Nonreactive Nonreactive [facility] Comment: Interpretive Data Nonreactive: Antibodies to HCV not detected. Does NOT exclude the possibility of recent exposure to HCV. Equivocal: Equivocal for HCV antibodies. Supplemental molecular testing will be automatically performed to determine infection status in accordance with current CDC screening recommendations. Reactive: Positive for HCV antibodies. This may represent current or past HCV infection. Supplemental molecular testing will be automatically performed to determine current infection status in accordance with current CDC screening recommendations. Interpretive data was last revised on 2019. Blood 06/29/2022 12:1 2 PM CDT 06/29/2022 2:11 PM CDT us Danica Lopez MD LAB MICROBIOLOGY - GENERAL ORDER YU Edited Result - Final 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
--- OUTSIDE RECORDS SUMMARY | 2025-02-15 13:29 | XMS_ITS | Patient Health Record ---
Author Organization 1 OF Anny lam [facility] Address [address] [facility] [address] [place] [address] Care Team Providers Care Mysql Database Developer Name Role Phone Leticia Elizabeth Primary Care Provider Zoraida Flowers Unavailable [phone] Allergies Allergen (clinical drug ingredient) Drug/Non Drug Allergy documented on EMR Reaction Allergy Type Onset Date Status Adhesive Unknown Allergy Active Reason For Referral No Information Medications Medication SIG (Take, Route, Frequency, Duration) Notes Start Date End Date Status predniSONE Active Folic Acid Active Vitamin D Active Medihoney Wound/Burn Dressing - Apply to wound bed daily Topical once daily for 30 days 02/01/2025 Active Methotrexate Active Aspirin 81 Active Vitamin C Active Quercetin Active Zinc Active Xarelto Active Rituxan Active Social History Tobacco Use: Social History Observation Description Date Details (start date - stop date) Former Smoker NA - 03/02/2005 Tobacco Control (Standard) Question Answer Notes Tobacco use: Former smoker When did you stop smoking? 03/02/2005 Additional Findings: Tobacco non-user Ex-very he jimena cigarette smoker (40+/day) Problems Problem Type SNOMED Code ICD Code Onset Dates Problem Status W/U Status Risk Notes Problem 23195554 Polyneuropathy, unspecified (G62.9) Active confirmed Problem 27188346270128480 Non-pressure chronic ulcer of other part of right foot limited to breakdown of skin (L97.511) Active confirmed Problem 44577570 Plantar wart (B07.0) Active confirmed Problem 972559882 Ulcer of left foot, limited to breakdown of skin (L97.521) Active confirmed Vital Signs Height 74 in 02/15/2025 Weight 220 lbs 02/15/2025 BMI 28.24 kg/m2 02/15/2025 Encounters Encounter Location Date Provider Diagnosis 1 OF Anny Mancuso [facility] [address] [place] [address] 02/15/2025 Zoraida Abraham Plantar wart B07.0 ; Left foot pain M79.672 ; Right foot pain M79.671 ; Ulcer of left foot, limited to breakdown of skin L97.521 and Non-pressure chronic ulcer of other part of right foot limited to breakdown of skin L97.511 1 OF Anny Mancuso [place] [address] [place] [address] 03/09/2024 Zoraida Abraham Plantar wart B07.0 ; Right foot pain M79.671 and Left foot pain M79.672 1 OF Anny Mancuso [place] [address] [place] [address] 04/20/2024 Zoraida Abraham Plantar wart B07.0 ; Polyneuropathy, unspecified G62.9 ; Onychogryphosis L60.2 ; Right foot pain M79.671 and Left foot pain M79.672 1 OF Anny Mancuso [place] [address] [place] [address] 05/06/2024 Zoraida Abraham Plantar wart B07.0 ; Right foot pain M79.671 and Left foot pain M79.672 1 OF Anny Mancuso [place] [address] [place] [address] 05/18/2024 Zoraida Abraham Plantar wart B07.0 ; Right foot pain M79.671 and Left foot pain M79.672 1 OF Anny Mancuso [facility] [address] [place] [address] 06/01/2024 Zoraida Abraham Plantar wart B07.0 ; Right foot pain M79.671 and Left foot pain M79.672 1 OF Anny Mancuso [place] [address] [place] [address] 06/15/2024 Zoraida Abraham Plantar wart B07.0 ; Right foot pain M79.671 and Left foot pain M79.672 1 OF Anny Mancuso [place] [address] [place] [address] 06/29/2024 Zoraida Abraham Plantar wart B07.0 ; Right foot pain M79.671 and Left foot pain M79.672 1 OF Anny Mancuso [place] [address] [place] [address] 07/13/2024 Zoraida Abraham Plantar wart B07.0 ; Right foot pain M79.671 ; Left foot pain M79.672 ; Polyneuropathy, unspecified G62.9 ; Onychogryphosis L60.2 and Ingrown toenail L60.0 1 OF Anny Mancuso [place] [address] [place] [address] 07/27/2024 Zoraida Abraham Plantar wart B07.0 ; Right foot pain M79.671 and Left foot pain M79.672 1 OF Anny Mancuso [place] [address] [place] [address] 09/10/2024 Zoraida Abraham Plantar wart B07.0 ; Right foot pain M79.671 and Left foot pain M79.672 1 OF Anny Mancuso [place] [address] [place] [address] 09/24/2024 Zoraida Abraham Plantar wart B07.0 ; Right foot pain M79.671 and Left foot pain M79.672 1 OF Anny Mancuso [place] [address] [place] [address] 10/05/2024 Zoraida Abraham Plantar wart B07.0 ; Right foot pain M79.671 and Left foot pain M79.672 1 OF Anny Mancuso [place] [address] [place] [address] 10/26/2024 Zoraida Abraham Plantar wart B07.0 ; Right foot pain M79.671 and Left foot pain M79.672 1 OF Anny Mancuso [place] [address] [place] [address] 11/09/2024 Zoraida Abraham Plantar wart B07.0 ; Left foot pain M79.672 and Right foot pain M79.671 1 OF [place] [address] [address] 11/30/2024 Zoraida Abraham Plantar wart B07.0 ; Left foot pain M79.672 and Right foot pain M79.671 1 OF [place] [address] [address] 12/21/2024 Zoraida Abraham Plantar wart B07.0 ; Left foot pain M79.672 and Right foot pain M79.671 1 OF [place] [address] [address] 01/11/2025 Zoraida Abraham Plantar wart B07.0 ; Left foot pain M79.672 and Right foot pain M79.671 [address] OF [place] [address] [address] 02/01/2025 Zoraida Abraham Plantar wart B07.0 ; Left foot pain M79.672 ; Right foot pain M79.671 ; Ulcer of left foot, limited to breakdown of skin L97.521 and Non-pressure chronic ulcer of other part of right foot limited to breakdown of skin L97.511 1 OF [place] [address] [address] 07/07/2024 Zoraida Abraham 1 OF [place] [address] [address] 10/05/2024 Zoraida Abraham Assessments Encounter Date Diagnosis (ICD Code) Assessment Notes Treatment Notes Treatment Clinical Notes Section Notes 03/09/2024 Plantar wart (ICD-10 - B07.0) Patient visit today included a review of medical history, review of systems, physical exam and discussion of exam findings, and discussion of diagnoses and treatment options. Discussed the nature and etiology of verruca and advised no one treatment of warts works for every patient. Discussed potential application of Cantharone, as well as potential for pain and blistering and discussed post application care instructions. The patient states that he has a history of delayed healing of wounds. I recommended holding off on treatment with Cantharone at this time. He was given a prescription for imiquimod cream. He was advised to call with any issues prior to his next visit. 03/09/2024 Right foot pain (ICD-10 - M79.671) 04/20/2024 Polyneuropathy, unspecified (ICD-10 - G62.9) 04/20/2024 Plantar wart (ICD-10 - B07.0) Discussed the nature and etiology of verruca and advised no one treatment of warts works for every patient. I recommended treatment of the lesions with Cantharone. Discussed the protocol for Cantharone treatment as well as potential for pain and blistering and discussed post application care instructions. Patient agreed to treatment of the lesions with Cantharone.He can call with any issues prior to his next visit. 05/06/2024 Plantar wart (ICD-10 - B07.0) Discussed the nature and etiology of verruca and advised no one treatment of warts works for every patient. I recommended repeat treatment of the lesions with Cantharone. Discussed the protocol for Cantharone treatment as well as potential for pain and blistering and discussed post application care instructions. Patient agreed to treatment of the lesions with Cantharone.He can call with any issues prior to his next visit. 05/18/2024 Plantar wart (ICD-10 - B07.0) Advised patient that the warts appear to be responding well to treatment and recommended repeating cantharone today. Patient agreed. Reviewed post-application protocol. He can call with any issues prior to the next visit. 06/01/2024 Plantar wart (ICD-10 - B07.0) Advised patient that the warts appear to be responding well to treatment and recommended repeating cantharone today. Patient agreed. Reviewed post-application protocol. He can call with any issues prior to the next visit. 06/29/2024 Plantar wart (ICD-10 - B07.0) Advised patient that the warts appear to be responding well to treatment and recommended repeating cantharone today and trying salicylic acid. He had only Cantharone applied to the right heel and right fifth metatarsal lesion. Patient agreed. Reviewed post-application protocol. He can call with any issues prior to the next visit. 07/13/2024 Plantar wart (ICD-10 - B07.0) Evaluation today included a review of medical history, review of systems, discussion of exam findings, and review of diagnoses and treatment options. I explained to the patient that the warts show some signs of improvement however some of them continue to remain stubborn. I discussed the option of trying different treatments or seeking out a second opinion from another office to see if they have a different treatment to offer. He would like to continue with the Cantharone and salicylic acid today. 07/13/2024 Right foot pain (ICD-10 - M79.671) 06/15/2024 Plantar wart (ICD-10 - B07.0) Advised patient that the warts appear to be responding well to treatment and recommended repeating cantharone today. Patient agreed. Reviewed post-application protocol. He can call with any issues prior to the next visit. He was advised he can use [id number]-aff-qggnqih salicylic acid or duct tape as well to see if this helps the lesions. 07/27/2024 Plantar wart (ICD-10 - B07.0) Evaluation today included a review of medical history, review of systems, discussion of exam findings, and review of diagnoses and treatment options. The hyperkeratotic tissue on the lesions was trimmed. He does not want the Cantharone treatment today. He was given a prescription for fluorouracil cream. I did discuss the possibility that this may not be effective for him. He can call with any issues prior to his next visit. 09/10/2024 Plantar wart (ICD-10 - B07.0) Evaluation today included a review of medical history, review of systems, discussion of exam findings, and review of diagnoses and treatment options. The hyperkeratotic tissue on the lesions was trimmed. He would like try treatment with Cantharone today. I again discussed that we have tried multiple treatments and there is a possibility that these treatments may not resolve his warts. He was advised that he could consider seeing a certified detention deputy for a second opinion. He can call with any issues prior to his next visit. 09/24/2024 Plantar wart (ICD-10 - B07.0) The lesions were trimmed. He would like try repeat treatment with Cantharone today. He can continue applying the fluorouracil cream as well. He can call with any issues prior to his next visit. 10/05/2024 Plantar wart (ICD-10 - B07.0) Evaluation today included a review of medical history, review of systems, discussion of exam findings, and review of diagnoses and treatment options. I explained to the patient that his immunosuppressive medications may be delaying the resolution of the warts. I again discussed the possibility of trying different treatment options. He elected to have repeat treatment with Cantharone today. I also discussed the possibility of trying a topical compound anti-viral cream. This will be ordered from [facility]'s pharmacy. He can call with any issues prior to his next visit. 10/26/2024 Plantar wart (ICD-10 - B07.0) Evaluation today included a review of medical history, review of systems, discussion of exam findings, and review of diagnoses and treatment options. The lesions were trimmed. The lesions are showing signs of improvement. I recommended continued treatment with topical antiviral compound. He was advised that he can use Medipore tape or can use a bandage to cover the lesions. He can call with any issues prior to his next visit. 11/09/2024 Plantar wart (ICD-10 - B07.0) Evaluation today included a review of medical history, review of systems, discussion of exam findings, and review of diagnoses and treatment options. The lesions were trimmed. All of the lesions are showing signs of improvement. I recommended continued treatment with the topical antiviral compound. He should have refills on the medication. He was advised that he can use Medipore tape or can use a bandage to cover the lesions. He can call with any issues prior to his next visit. 11/09/2024 Left foot pain (ICD-10 - M79.672) 11/30/2024 Plantar wart (ICD-10 - B07.0) Evaluation today included a review of medical history, review of systems, discussion of exam findings, and review of diagnoses and treatment options. The lesions were trimmed. The lesions are showing signs of improvement. I recommended continued treatment with the topical antiviral compound. We again discussed the possibility of doing a biopsy of the right foot at some point, if the lesion does not continue to improve. I discussed what the biopsy procedure would consist of. He can call with any issues prior to his next visit. 11/30/2024 Left foot pain (ICD-10 - M79.672) 12/21/2024 Plantar wart (ICD-10 - B07.0) Evaluation today included a review of medical history, review of systems, discussion of exam findings, and review of diagnoses and treatment options. The lesions were trimmed. The lesions are showing signs of improvement on the ball of the feet. I recommended continued treatment with the topical antiviral compound. I discussed the option of trying Cantharone on the smaller lesions. He was agreeable to this today. He can call with any issues prior to his next visit. 01/11/2025 Plantar wart (ICD-10 - B07.0) Evaluation today included a review of medical history, review of systems, discussion of exam findings, and review of diagnoses and treatment options. The lesions were trimmed. The lesions are showing signs of improvement. I recommended continued treatment with the topical antiviral compound on all the lesions, but he can hold off on the right 1st MPJ lesion until the wound heals. He can apply antibiotic ointment and a bandage on the wound until it heals. He can call with any issues prior to his next visit. 02/01/2025 Plantar wart (ICD-10 - B07.0) Evaluation today included a review of medical history, review of systems, discussion of exam findings, and review of diagnoses and treatment options. The lesions were trimmed. I recommended holding off on application of the topical compound to the bilateral forefoot warts and he can apply them on the bilateral heel lesions. 02/01/2025 Left foot pain (ICD-10 - M79.672) 02/15/2025 Plantar wart (ICD-10 - B07.0) Evaluation today included a review of medical history, review of systems, discussion of exam findings, and review of diagnoses and treatment options. The lesions were trimmed. I recommended holding off on application of the topical compound to the bilateral forefoot warts and he can apply them on the bilateral heel lesions. 02/15/2025 Left foot pain (ICD-10 - M79.672) 12/21/2024 Left foot pain (ICD-10 - M79.672) 02/01/2025 Right foot pain (ICD-10 - M79.671) 01/11/2025 Left foot pain (ICD-10 - M79.672) 11/30/2024 Right foot pain (ICD-10 - M79.671) 11/09/2024 Right foot pain (ICD-10 - M79.671) 10/26/2024 Right foot pain (ICD-10 - M79.671) 10/05/2024 Right foot pain (ICD-10 - M79.671) 09/24/2024 Right foot pain (ICD-10 - M79.671) 09/10/2024 Right foot pain (ICD-10 - M79.671) 07/27/2024 Right foot pain (ICD-10 - M79.671) 06/15/2024 Right foot pain (ICD-10 - M79.671) 07/13/2024 Left foot pain (ICD-10 - M79.672) 06/29/2024 Right foot pain (ICD-10 - M79.671) 04/20/2024 Onychogryphosis (ICD-10 - L60.2) Considering the associated comorbidities and physical exam findings today, this patient is at substantial risk of developing serious foot complications in the absence of regular and professional palliative foot care. 03/09/2024 Left foot pain (ICD-10 - M79.672) 05/06/2024 Right foot pain (ICD-10 - M79.671) 04/20/2024 Right foot pain (ICD-10 - M79.671) 06/29/2024 Left foot pain (ICD-10 - M79.672) 07/13/2024 Polyneuropathy, unspecified (ICD-10 - G62.9) 06/01/2024 Right foot pain (ICD-10 - M79.671) 05/18/2024 Right foot pain (ICD-10 - M79.671) 06/15/2024 Left foot pain (ICD-10 - M79.672) 07/27/2024 Left foot pain (ICD-10 - M79.672) 09/10/2024 Left foot pain (ICD-10 - M79.672) 09/24/2024 Left foot pain (ICD-10 - M79.672) 10/05/2024 Left foot pain (ICD-10 - M79.672) 10/26/2024 Left foot pain (ICD-10 - M79.672) 01/11/2025 Right foot pain (ICD-10 - M79.671) 12/21/2024 Right foot pain (ICD-10 - M79.671) 02/15/2025 Right foot pain (ICD-10 - M79.671) 02/01/2025 Ulcer of left foot, limited to breakdown of skin (ICD-10 - L97.521) I recommended application of Medihoney and a bandage daily to both forefoot wounds. He was sent an rx for this. He was educated on signs of infection and should call with any issues prior to the next visit. 02/15/2025 Ulcer of left foot, limited to breakdown of skin (ICD-10 - L97.521) 02/01/2025 Non-pressure chronic ulcer of other part of right foot limited to breakdown of skin (ICD-10 - L97.511) 05/18/2024 Left foot pain (ICD-10 - M79.672) 06/01/2024 Left foot pain (ICD-10 - M79.672) 07/13/2024 Onychogryphosis (ICD-10 - L60.2) Considering the associated comorbidities and physical exam findings today, this patient is at substantial risk of developing serious foot complications in the absence of regular and professional palliative foot care. 04/20/2024 Left foot pain (ICD-10 - M79.672) 05/06/2024 Left foot pain (ICD-10 - M79.672) 07/13/2024 Ingrown toenail (ICD-10 - L60.0) 02/15/2025 Non-pressure chronic ulcer of other part of right foot limited to breakdown of skin (ICD-10 - L97.511) Plan Of Treatment Next Appt Details Provider Name:Zoraida Abraham, 03/08/2025 10:40:00 AM, [address] [place], [address], Insurance Providers Payer Name Payer Address Payer Phone Subscriber Number Group Number Insured Name Patient Relationship to Insured Coverage Start Date Coverage End Date Medicare [address] [place] [id number] Juventino Chappell Self - patient is the insured [id number] [address] [place] [address] [phone] [id number] ChappellJuventino rodriguez Self - patient is the insured Medical (General) History Medical History History ICD Code arthritis, DVT, cancer, afsaneh ia, high cholesterol, neuropathy of feet, Pneumonia, pulmonary embolism, rheumatoid arthritis Surgical History Surgery Date(Month/Year) aortic aneurysm repair
--- OUTSIDE RECORDS SUMMARY | 2025-02-15 13:29 | XMS_ITS | Clinical Summary ---
Author Organization [facility] Address [address] [place] [address] Care Team Providers Care Gluing Machine Operator Automatic Name Role Phone Elizabeth Kelly MD Primary Care Provider [phone] Source Comments [facility],non-owned Affiliates and Associated Physician Practices is amultiple site organization consisting of ambulatory clinics and hospital sitesin [place], [place], [place] and [place]. This disclosure is being madepursuant to the Care Everywhere program and may not contain all information available regarding this patient. 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 Gender Identity Not on file Sexual Orientation Not on file Plan of Treatment Health Maintenance Due Date Last Done Comments COLOGUARD (AGES 45-75) - COL ON CA SCREENING 1956 COLON MONITORING 1956 COLONOSCOPY - COLON CA SCREENING 1956 CT COLONOGRAPHY - COLON CA SCREENING 1956 Colorectal Cancer Screening 1956 FIT - COLON CA SCREENING 1956 FLEX SIG - COLON CA SCREENING 1956 LIPID TESTING 1956 MEDICARE AWV 12 MONTHS 1956 HEPATITIS C SCREENING 09/04/1974 DTAP/TDAP/TD VACCINES (1 - Tdap) 1975 PNEUMOCOCCAL VACCINE 50+ (1 of 1 - PCV) 2006 ZOSTER VACCINE (1 of 2) 2006 COVID-19 VACCINE ( - 2023-2 5 season) 2024 DEPRESSION SCREENING 09/02/2024 INFLUENZA VACCINE (Season Ended) 2025 Respiratory Syncytial Virus (RSV) Vaccine Pt: or over 60 yrs (1 - 1-dose 75+ series) 2031 HEPATITIS B VACCINE Aged Out No longe r eligible based on patient's age to complete this topic HIB VACCINE Aged Out No longer eligi ble based on patient's age to complete this topic HPV VACCINE Aged Out No longer eligi ble based on patient's age to complete this topic MENINGOCOCCAL (Group B) VACC INE SHARED DECISION-MAKING Aged Out No longer eligibl e based on patient's age to complete this topic MENINGOCOCCAL GROUPS A/C/Y/W VACCINE Aged Out No longer eligible b ased on patient's age to complete this topic Insurance MEDICARE MEDICARE [facility] [place] [id number] Care Teams Gluing Machine Operator Automatic Relationship Specialty Start Date End Date Elizabeth Kelly MD [address] [place] [address] PCP - General 02/12/22
--- OUTSIDE RECORDS SUMMARY | 2025-02-15 13:29 | XMS_ITS | Encounter Summary ---
Author Organization [facility] Address [address] [place] [address] Phone Care Team Providers Care Assembler Piano Name Role Phone Jean Raygoza MD Primary Care Provider [phone] Elizabeth Kelly MD Primary Care Provider [phone] Macho Harrison MD Unavailable [phone] Colton Portillo MD Unavailable [phone] Encounter Details Date Type Department Care Team (Late st Contact Info) Description 10/18/2017 Orders Only [facility] ProviderDwight MD [address] [place] [address] Social History Tobacco Use Types Packs/Day Years Used Date Smoking Tobacco: Former Smokeless Tobacco: Never Comments:Smoking History Pac ks/day: 2 Packs Alcohol Use Standard Drinks/Week Comments Yes 0 (1 standard drink = 0.6 oz pur e alcohol) Sex and Gender Information Value Date Recorded Sex Assigned at Not on file Legal Sex Male 1:59 AM OPERATIONS PLANNER Gender Identity Not on file Sexual Orientation Not on file documented as of this encounter Plan of Treatment Not on file documented as of this encounter Procedures Procedure Name Priority Date/Time Associated Diagnosis Comments DISCHARGE LABORATORY CUMULATIVE REPORT 10/18/2017 12:00 AM OPERATIONS PLANNER documented in this encounter Results * DISCHARGE LABORATORY CUMULATIVE REPORT (10/18/2017 12:00 AM OPERATIONS PLANNER) Narrative 10/18/2017 12:00 AM OPERATIONS PLANNER Ordered by an unspecified provider. us Historical Provider LAB BLOOD ORDERABLES Christina l Result documented in this encounter Visit Diagnoses Not on filedocumented in this encounter Additional Health Concerns Infection Onset Date Last Indicated Resolved Time COVID: Suspected 03/06/2022 03/06/2022 03/06/2022 7:58 PM CDT COVID19 03/06/2022 03/06/2022 03/16/2022 3:05 AM CDT COVID: Recovered Comment:Added based on recent COVID infection. 03/16/2022 03/16/2022 07/14/2022 3:[address] documented as of this encounter Care Teams Assembler Piano Relationship Specialty Start Date End Date Jean Raygoza MD PCP - General 01/04/17 04/05/20 Elizabeth Kelly MD PCP - General Internal Medicine 04/06/20 Macho Harrison MD [address] [facility] [place] [address] Surgeon Vascular Surgery 05/08/22 Colton Portillo MD [address] [place] [address] Consulting Physician Cardiovascular Disease 06/26/22 documented as of this encounter
--- OUTSIDE RECORDS SUMMARY | 2025-02-15 13:29 | XMS_ITS | Clinical Summary ---
Author Organization [facility] Address [address] [place] [address] Care Team Providers Care Him Clerk Name Role Phone Leticia Elizabeth Blood MD Primary Care Provider [phone] Macho Harrison MD Unavailable [phone] Colton Portillo MD Unavailable [phone] Allergies Active Allergy Reactions Criticality Noted Date [...] 07/13/2022 Assessment & Plan (10/08/2024 10:16 AM TABLET REPAIR): Status post EVAR. Duplex shows stable stent graft repair decrease aneurysm sac size with no endoleak. Follow up 1 year with duplex. Assessment & Plan (09/20/2023 12:50 PM TABLET REPAIR): Impression: Patient is status post endovascular repair of a 5.3 cm infrarenal abdominal aortic aneurysms. CT of abdomen pelvis reveals a patent endograft with a decreasing pauma aneurysms sac now measuring 3.7 cm with no endoleak seen. Plan: Continue ongoing risk factor modifications. -continue dual antiplatelet therapy of aspirin and Xarelto. -patient to follow-up in 1 year for re-evaluation with abdominal aortic duplex. Abnormal stress test 07/02/2022 Overview (07/02/2022): Added automatically from request for surgery [id number] assisted (current) use of systemic steroids Assessment & [...] are complete. Avoid live-vaccines unless reviewed with degree clerk first. Discussed that we strongly recommend the flu and covid vaccines but he continues to decline. He will talk to his PCP about getting his second pneumonia vaccine though Abdominal aortic aneurysm (AAA) without rupture 05/16/2022 Assessment & Plan (09/14/2022 1:51 PM TABLET REPAIR): Patient is status post AAA repair with PVR 07/13/2022 which was measuring 5.3 cm. States he is recovering well. Denies any concerns or complaints or claudication symptoms. Follow-up CTA shows the aneurysm is not measuring 5.1 cm with no endoleak. Discussed patient with Dr. Mary Harrison. Plan: Return in 1 year for routine surveillance with CTA. Assessment & Plan (08/01/2022 3:47 PM TABLET REPAIR): Impression: Patient is status post endovascular repair [...] Hyperlipidemia Assessment & Plan (10/08/2024 10:16 AM TABLET REPAIR): Hyperlipidemia chronic controlled. Continue pravastatin. Assessment & Plan (09/20/2023 12:50 PM TABLET REPAIR): Impression: Chronic stable. Plan: Continue pravastatin Assessment [...] have his routine blood work updated at [facility] and we can trial the addition of [...] CDT): Chronic and controlled. Continue medical therapy. Encounters Date Type Department Care Team Description 02/09/2025 1:16 PM CDT - 02/09/2025 11:59 PM CDT Hospital Encounter [facility] [address] [place] [address] Discharge Disposition: Discharge to home or self care 02/02/2025 10:45 AM CDT Office Visit [facility] Pulmonology [address] [place] [address] Kat Ruiz MD Simple chronic bronchitis (HCC) (Primary Dx); Pulmonary air trapping; History of pulmonary embolism; Multiple pulmonary nodules; Psychophysiological insomnia; Cigarette nicotine dependence in remission; Hyperinflation of lungs; Rheumatoid arthritis involving multiple sites with positive rheumatoid factor (HCC) 12/30/2024 9:56 AM CDT - 12/30/2024 11:59 PM CDT Hospital Encounter [facility] [address] [place] [address] Simple chronic bronchitis (HCC); Pulmonary air trapping; Solitary pulmonary nodule; Cigarette nicotine dependence in remission; Psychophysiological insomnia Discharge Disposition: Discharge to home or self care from Last 3 Months Immunizations Immunization Administration Dates Next Due Influenza, Quadrivalent, Spl it, Preservative Free, Intramuscular 06/14/2020,06/04/2019,07/28/2018,07/16 Influenza, Trivalent, High D ose, Split, Preservative Free, Intramuscular 07/12/2015 Influenza, Trivalent, Preser vative Free, Intramuscular 07/17/2017,06/13/2017 Influenza, Trivalent, Split, Preservative Free, Intradermal 08/04/2014 Influenza, Unspecified 06/02/2021,2018,03/02/2016,01/05 Pneumococcal Polysaccharide PPV23 09/01/2010 Td, Not Adsorbed 12/12/2021 ZOSTER LIVE 03/02/2016,01/06/2016 Surgical History Surgery Date Site/Laterality Comments KNEE ARTHROSCOPY Bilateral bilat knee surg for injuries in the past HERNIA REPAIR CYST REMOVAL cyst removed from ankle SINUS SURGERY KNEE ARTHROPLASTY Right KNEE ARTHROPLASTY Left Knee replacement MULTIPLE TOOTH EXTRACTIONS all teeth removed, dentures placed top and bottom MELANOMA RESECTION 09/02/2020 - 09/01/2021 under local COLONOSCOPY 01/31/2022 - 03/01/2022 AORTIC ILIAC FEMORIAL ANGIOGRAM INTERVENTION 09/02/2014 - 09/01/2015 Left with stent placement CARDIAC CATHETERIZATION 07/04/2022 Clean ENDOSCOPIC AORTIC REPAIR 07/13/2022 PEVAR BASAL CELL CARCINOMA EXCISION 09/02/2022 - 09/01/2023 Medical History Medical History Date Comments Melanoma (HCC) 2019 removed Rheumatoid arthritis (HCC) takes methotrexate and prednisone Delayed emergence from general anesthesia Happens frequently Sleep apnea wears cpap night ly Hyperlipidemia DVT (deep venous thrombosis) (HCC) 07/2015 both legs, PE Hx of retirement use of blood thinners xarelto AAA (abdominal aortic aneurysm) 5.1 Back pain takes Gabapentin Insomnia Full dentures Marijuana smoker Pneumonia 03/2022 following covid - resolved Feeling of incomplete bladder emptying BPH associated with nocturia Wears glasses GERD (gastroesophageal reflux disease) Rare - no longer needs meds. Poor mobility Alcohol use 06/2022 4-5 drinks daily Neuropathy bottom of feet Lung disease Allergic rhinitis Family History Medical History Relation Name Comments Coronary artery disease Father 2 Kirstin nary artery disease; Cause of : Coronary artery disease Lung cancer Mother 2 Cancer -lung; C ause of : Cancer -lung Relation Name Status Comments Father 1 (Age 51) Father 2 Mother 1 (Age 74) Mother 2 Social History Tobacco Use Types Packs/Day Years [...] when you are drinking? 3 or 4 4 Q3: How often do you have [...] on file Legal Sex Male 1:59 AM TABLET REPAIR Gender Identity Not on file Sexual Orientation Not on file Obstetrics History Last Filed Vital Signs Vital Sign Reading Time Taken Comments Blood Pressure 116/74 02/02/2025 10:32 AM CDT Pulse 60 02/02/2025 10:32 AM CDT Temperature 36.7 C (98 F) 10/27/2024 10:46 AM TABLET REPAIR Respiratory Rate 18 02/02/2025 10:32 AM CDT Oxygen Saturation 97% 02/02/2025 10:32 AM CDT Inhaled Oxygen Concentration - - Weight 101.2 kg (223 lb) 02/02/2025 10:32 AM CDT Height 188 cm (6' 2) 02/02/2025 10:32 AM CDT Body Mass Index 28.63 02/02/2025 10:32 AM CDT Plan of Treatment Health Maintenance Due Date Last Done Comments Colon Cancer Screening-Colonoscopy 1955 Prostate Cancer Screening-PSA 1955 Hepatitis B Screening 1974 Pneumococcal vaccine 65+ (2 of 2 - PCV) 09/01/2011 09/01/2010 Zoster Vaccine (1 of 2) 04/27/2016 03/02/2016, 01/05 Well Visit 65+ 2021 DTaP/Tdap/Td Vaccine (1 - Tdap) 12/13/2021 Depression Screening 11/07/2022 11/07/2021 Fall Risk Assessment 03/13/2025 03/13/2024 Influenza Vaccine (Season Ended) 2025 06/02/2021, 06/14/2020, 06/04/2019, Additional history exists Hepatitis C Screening Completed 06/29/2022 , 12/29/2015, 11/23/2015, Additional history exists Abdominal Aortic Aneurysm (A AA) Screen Completed 09/23/2024, 01/23/2024, 09/19/2023, Additional history exists Medical Devices Implanted Type Area Language Assistant Device Identifier Shelf Expiration Date Model / Serial / Lot Veratect Angio-Seal Vip 6fr Closere Device [id number] - [id number] Implanted:Qty: 1 on 07/04/2022 by Haresh Solis MD at [facility] Veratect 01/30/2023 [id number] / / [id number] 6 [employer] Perclose 6fr Vascular Closure [id number] - [id number] Implanted:Qty: 4 on 07/13/2022 by Macho Harrison MD at [facility] [employer] [id number] / / [employer] [place] Excluder C3 23mm 14.5mm 19-21mm 12-13.5mm 12cm Sinusoidal [id number] - [id number] - [id number] Implanted:Qty: 1 on 07/13/2022 by Macho Harrison MD at [facility] N/A: Aorta [employer] [id number] 12/02/2024 [id number] / [id number] / [employer] Excluder 16mm 13.5-14.5mm 13.5cm Stent Abrasion Resistant [id number] - [id number] - [id number] Implanted:Qty: 1 on 07/13/2022 by Macho Harrison MD at [facility] [employer] [id number] 01/10/2025 [id number] / [id number] / [employer] Excluder 18mm 14.5-16.5mm 13.5cm Stent Abrasion Resistant [id number] - [id number] - [id number] Implanted:Qty: 1 on 07/13/2022 by Macho Harrison MD at [employer] [facility] [id number] 04/15/2025 [id number] / [id number] / Procedures Procedure Name Priority Date/Time Associated [...] Read Routine (OP Routine) 09/16/2023 8:47 AM TABLET REPAIR Aftercare following surgery of the circulatory system [...] MD LAB BLOOD ORDERABLES Final Resul t [facility] [address] Department [place] [address] * Differential, auto (02/09/2025 10:08 AM CDT) Neutrophil abs 3.56 1.50 - 6.50 K/cumm Imm gran abs 0.02 0.00 - 0.10 K/cumm [facility] Lymphocyte abs 1.20 0.80 - 3.30 K/cumm [facility] Monocyte abs 0.77 0.20 - 0.80 K/cumm [facility] Eosinophil abs 0.10 0.00 - 0.50 K/cumm [facility] Basophil abs 0.04 0.00 - 0.10 K/cumm [facility] Neutrophil pct 62.5 % [facility] Comment: Interpretive Data Percent cell count reference ranges are not reported, since discordance with absolute values may lead to misinterpretation of CBC data. Current Interpretive Data was last revised on 2017. Imm gran pct 0.4 % [facility] Comment: Interpretive Data Percent cell count reference ranges are not reported, since discordance with absolute values may lead to misinterpretation of CBC data. Current Interpretive Data was last revised on 2017. Lymphocyte pct 21.1 % [facility] Comment: Interpretive Data Percent cell count reference ranges are not reported, since discordance with absolute values may lead to misinterpretation of CBC data. Current Interpretive Data was last revised on 2017. Monocyte pct 13.5 % [facility] Comment: Interpretive Data Percent cell count reference ranges are not reported, since discordance with absolute values may lead to misinterpretation of CBC data. Current Interpretive Data was last revised on 2017. Eosinophil pct 1.8 % [facility] Comment: Interpretive Data Percent cell count reference ranges are not reported, since discordance with absolute values may lead to misinterpretation of CBC data. Current Interpretive Data was last revised on 2017. Basophil pct 0.7 % [facility] Comment: Interpretive Data Percent cell count reference ranges are not reported, since discordance with absolute values may lead to misinterpretation of CBC data. Current Interpretive Data was last revised on 2017. Blood 02/09/2025 10:0 8 AM CDT 02/09/2025 1:25 PM CDT us Danica Lopez MD LAB BLOOD ORDERABLES Final Resul t [facility] [address] Department [place] [address] * (ABNORMAL) CBC with auto differential (02/09/2025 10:08 AM CDT) WBC 5.69 3.80 - 9.90 K/cumm Hgb 14.7 13.0 - 17.5 g/dL [facility] Hct 44.1 38.9 - 50.3 % [facility] Plt 190 150 - 400 K/cumm [facility] MPV 9.7 9.1 - 12.3 fL [facility] RBC 4.30 4.30 - 5.80 M/cumm [facility] MCV 102.6(H) 81.3 - 96.4 fL [facility] MCH 34.2(H) 27.1 - 33.3 pg [facility] MCHC 33.3 32.3 - 35.7 g/dL [facility] RDW CV 13.6 11.1 - 14.9 % [facility] RDW SD 51.0(H) 35.7 - 48.1 fL [facility] NRBC abs 0.00 0.00 - 0.01 K/cumm [facility] Blood 02/09/2025 10:0 8 AM CDT 02/09/2025 1:25 PM CDT Danica Lopez MD LAB BLOOD ORDERABLES Final Resul t [facility] [address] Department [place] [address] * (ABNORMAL) Comprehensive metabolic panel (02/09/2025 10:08 AM CDT) Sodium 140 135 - 145 mmol/L Potassium, pl 3.9 3.3 - 4.9 mmol/L [facility] Chloride 102 97 - 110 mmol/L [facility] CO2 25 22 - 32 mmol/L [facility] Anion gap 13 2 - 15 mmol/L [facility] BUN 13 6 - 25 mg/dL [facility] Creatinine 0.75(L) 0.80 - 1.30 mg/dL [facility] Glucose 97 70 - 199 mg/dL [facility] Comment: Interpretive Data Fasting glucose >/= 126 [...] 2022. Calcium 9.2 8.5 - 10.3 mg/dL [facility] Bilirubin, total 0.5 0.1 - 1.2 mg/dL [facility] Protein, pl 7.6 6.5 - 8.5 g/dL [facility] Albumin 4.4 3.5 - 5.0 g/dL [facility] Alk phos 82 40 - 130 Units/L [facility] ALT 22 7 - 55 Units/L [facility] AST 31 10 - 50 Units/L [facility] Blood 02/09/2025 10:0 8 AM CDT 02/09/2025 1:26 PM CDT Danica Lopez MD LAB BLOOD ORDERABLES Final Resul t [facility] [address] Department of Laboratories [place], [place] [address] * Pulmonary Function Test - (12/30/2024 11:02 AM CDT) FVC POST 5.68 L 12/30/2024 11:04 AM CDT [facility] FEV1 POST 3.84 L 12/30/2024 11:04 AM CDT [facility] [id number] 67.52 % 12/30/2024 11:04 AM CDT [facility] JDX91-96% POST 2.12 L/s 12/30/2024 11:04 AM CDT [facility] PEF POST 10.16 L/s 12/30/2024 11:04 AM CDT [facility] DLCOc SB 23.16 ml/(min*mm Hg) 12/30/2024 11:04 AM CDT [facility] DLCO/VA PRE 2.73 ml/(min*mm Hg*L) 12/30/2024 11:04 AM CDT [facility] VA 8.51 L 12/30/2024 11:04 AM CDT [facility] TLC PRE 10.35 L 12/30/2024 11:04 AM CDT [facility] VC PRE 5.81 L 12/30/2024 11:04 AM CDT [facility] IC PRE 3.92 L 12/30/2024 11:04 AM CDT [facility] FRC PL PRE 6.22 L 12/30/2024 11:04 AM CDT [facility] ERV PRE 1.68 L 12/30/2024 11:04 AM CDT [facility] RV PRE 4.55 L 12/30/2024 11:04 AM CDT [facility] RAW PRE 1.62 cmH2O*s/L 12/30/2024 11:04 AM CDT [facility] VTG 6.59 L 12/30/2024 11:04 AM CDT [facility] FVC PRE 5.81 L 12/30/2024 11:04 AM CDT [facility] FEV1 PRE 3.78 L 12/30/2024 11:04 AM CDT [facility] [id number] 65.15 % 12/30/2024 11:04 AM CDT [facility] ISQ30-74% PRE 1.89 L/s 12/30/2024 11:04 AM CDT [facility] PEF PRE 9.33 L/s 12/30/2024 11:04 AM CDT [facility] Anatomical Region Laterality Modality PFT [...] ambulation. Electronically signed by Foreign Hagen MD, FCCP Pulmonary and Critical Care Medicine [facility] Kat Ruiz MD PFT ORDERABLES Final Resul t * CTA Abdomen Pelvis (09/16/2023 8:47 AM TABLET REPAIR) Anatomical Region Laterality Modality Body N/A Computed Tomogra phy 09/16/2023 1:37 PM TABLET REPAIR Narrative 09/16/2023 1:56 PM TABLET REPAIR EXAM DESCRIPTION: CTA ABDOMEN PELVIS REASON FOR [...] Findings Committee. J Am Christofer Radiol. 2017 Apr;14(8):6484-6870. FINDINGS: VASCULATURE: No dissection,intramural hematoma, rupture, or [...] been interval decrease in size of the pauma aneurysm sac. The sac measures 3.7 x [...] been interval decrease in size of the pauma aneurysm sac, currently measuring 3.7 x 3.0 [...] Yazmin Mckee M.D. TW T: Report ID: [id number] Reading Location: [id number] Procedure Note Yazmin Mckee MD - 09/16/2023 [...] Findings Committee. J Am Christofer Radiol. 2017 Apr;14(8):1040-0563. FINDINGS: VASCULATURE: No dissection,intramural hematoma, rupture, or [...] been interval decrease in size of the pauma aneurysmsac. The sac measures 3.7 x 3.0 [...] been interval decrease in size of the pauma aneurysm sac, currently measuring 3.7 x 3.0 [...] Yazmin Mckee M.D. TW T: Report ID: [id number] Reading Location: [id number] Macho Harrison MD IMG CT PROCEDURES Final Re sult * Hepatitis C antibody (06/29/2022 12:12 PM CDT) Hep C Ab Nonreactive Nonreactive [facility] Comment: Interpretive Data Nonreactive: Antibodies to HCV [...] GENERAL ORDER YU Edited Result - Final [facility] [address] Department [place] [address] from Last 3 Months or Most Recently Relevant to Health Maintenance Insurance MEDICARE COMMERCIAL GENERIC MEDICARE Member Subscriber Plan / Payer (Ef fective 2021-Present) Name:Juventino Chappell Member ID:[id number] Relation to Subscriber:Self Name:Juventino Chappell Subscriber ID:[id number] Payer ID:[id number] Group ID:Not on file Type:MEDICARE TRADITIONAL Address: [place] [id number] COMMERCIAL GENERIC COMMERCIAL GENERIC MEDICARE Advance Directives For more information, please contact: [phone] * Full Code (Latest Code Status on File) Date Activated Date Inactivated Comments 07/13/2022 2:35 PM 07/14/2022 9:13 PM * Full Code Date Activated Date Inactivated Comments 07/04/2022 11:51 AM 07/04/2022 6:19 PM Care Teams Him Clerk Relationship Specialty Start Date End Date Elizabeth Kelly MD PCP - General Internal Medicine 04/06/20 Macho Harrison MD [address] [place] [id number] [place] [address] Surgeon Vascular Surgery 05/08/22 Colton Portillo MD [address] [facility] [place] [address] Consulting Physician Cardiovascular Disease 06/26/22
--- OUTSIDE RECORDS SUMMARY | 2025-02-15 13:29 | XMS_ITS | Encounter Summary ---
Author Organization [facility] Address [address] [place] [address] Phone Care Team Providers Care Assistant Infant Teacher Name Role Phone Jean Raygoza MD Primary Care Provider [phone] Elizabeth Kelly MD Primary Care Provider [phone] Macho Harrison MD Unavailable [phone] Colton Portillo MD Unavailable [phone] Encounter Details Date Type Department Care Team (Late st Contact Info) Description 01/02/2018 Orders Only [facility] ProviderDwight MD [address] [place] [address] Social History Tobacco Use Types Packs/Day Years Used Date Smoking Tobacco: Former Smokeless Tobacco: Never Comments:Smoking History Pac ks/day: 2 Packs Alcohol Use Standard Drinks/Week Comments Yes 0 (1 standard drink = 0.6 oz pur e alcohol) Sex and Gender Information Value Date Recorded Sex Assigned at Not on file Legal Sex 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 Gender Identity Not on file Sexual Orientation Not on file documented as of this encounter Plan of Treatment Not on file documented as of this encounter Procedures Procedure Name Priority Date/Time Associated Diagnosis Comments DISCHARGE LABORATORY CUMULATIVE REPORT 01/02/2018 12:00 AM CDT documented in this encounter Results * DISCHARGE LABORATORY CUMULATIVE REPORT (01/02/2018 12:00 AM CDT) Narrative 01/02/2018 12:00 AM CDT Ordered by an unspecified [...] documented as of this encounter Care Teams Assistant Infant Teacher Relationship Specialty Start Date End Date Jean Raygoza MD PCP - General 01/04/17 04/05/20 Elizabeth Kelly MD PCP - General Internal Medicine 04/06/20 Macho Harrison MD [address] [facility] [place] [address] Surgeon Vascular Surgery 05/08/22 Colton Portillo MD [address] [facility] [place] [address] Consulting Physician Cardiovascular Disease 06/26/22 documented as of this encounter
--- NOTE | 2025-02-15 15:04 | ED_ITS ---
HPI - General Adult General Chief complaint: Wound/Laceration Stated complaint: wound to right leg, bleeding Time Seen by Provider: 02/15/25 14:12 History of Present Illness HPI narrative: 69-year-old male presents to the emergency department for evaluation for an injury to his right calf. Patient states that the dog he was watching burst through the dog gate and the dog's collar caught his leg and caused a significant skin tear to his right curran. Patient denies any other pain or i njury Related Data Home Medications ?Medication ?Instructions ?Recorded ?Confirmed ?Last Taken ?Type albuterol sulfate 90 mcg/actuation 2 inh inhalation Q4-6H PRN 01/26/22 01/26/22 02/06/22 History aerosol inhaler Shortness Of Breath Or Wheezing folic acid 1 mg tablet 1 tablet PO DAILY 01/26/22 01/26/22 02/06/22 History gabapentin 300 mg capsule 300 mg PO DAILY 01/26/22 01/26/22 02/06/22 History methotrexate sodium 2.5 mg tablet 25 mg PO WEEKLY 01/26/22 01/26/22 02/06/22 History pravastatin 40 mg tablet 40 mg PO DAILY 01/26/22 01/26/22 02/06/22 History prednisone 2.5 mg tablet 2.5 mg PO DAILY 01/26/22 01/26/22 02/06/22 History prednisone 5 mg tablet 5 mg PO DAILY 01/26/22 01/26/22 02/06/22 History rivaroxaban 20 mg tablet (Xarelto) 20 mg PO DAILY 01/26/22 01/26/22 02/03/22 History trazodone 150 mg tablet 150 mg PO DAILY 01/26/22 01/26/22 02/06/22 History Allergies Allergy/AdvReac Type Severity Reaction Status Date / Time No Known Allergies Allergy Unknown Verified 02/07/22 10:19 Review of Systems Review of Systems: All systems reviewed & are unremarkable except as noted in HPI and below PMFSH Social History Social History Smoking packs per day: 1.5 Smoking cigarettes per day: 30.0 Years smoked: 30 Smoking pack-years: 45.00 Smoking status: Former smoker Tobacco type: cigarettes Alcohol intake: current Drinks per week: 35 Alcohol use details: 5 beers daily Substance use: current Substance use type: marijuana Other substance usage details: daily use marijuana Living arrangements: with family Spiritual care concerns: No Exam Narrative: APPEARANCE: Well appearing, no pain, no distress, well-nourished. HEAD: normocephalic, atraumatic. EYES: PERRLA/EOMI, conjunctivae clear. NOSE: Normal no drainage EARS:TMS clear with good light reflex. THROAT: Pharynx clear, no exudate. NECK: Supple. No adenopathy, no masses. RESPIRATORY: Airway patent, respirations nonlabored. Clear to auscultation bilaterally, no rales, rhonchi, wheezing. CARDIOVASCULAR: Regular rate and rhythm without murmurs rubs or gallops. ABDOMINAL: Soft, nontender, nondistended, normal bowel sounds MUSCULOSKELETAL: Moves all extremities. Strength/ROM intact, No edema, No calf tenderness. NEURO: Alert. Cranial nerves II through XII intact. Good gait. Good coordination SKIN: Complex skin tear with no laceration repair possible Course Vital Signs Vital signs: Vital Signs Temperature 98.4 F 02/15/25 12:43 Pulse Rate 65 02/15/25 12:43 Respiratory Rate 18 02/15/25 12:43 Blood Pressure 142/82 H 02/15/25 12:43 Pulse Oximetry 97 02/15/25 12:43 Oxygen Delivery Room Air 02/15/25 12:43 Temperature 98.4 F 02/15/25 12:43 Pulse Rate 65 02/15/25 12:43 Respiratory Rate 18 02/15/25 12:43 Blood Pressure 142/82 H 02/15/25 12:43 Pulse Oximetry 97 02/15/25 12:43 Oxygen Delivery Room Air 02/15/25 12:43 Medical Decision Making [facility] Narrative Medical decision making narrative: 69-year-old male presents to the emergency department for evaluation for a skin tear to his right curran. Wound care was performed emergency department. Patient was started on antibiotics, tetanus was updated patient was provided outpatient follow-up with Plastic surgery. Vital Signs Vital Signs: Vital Signs Temperature 98.4 F 02/15/25 12:43 Pulse Rate 65 02/15/25 12:43 Respiratory Rate 18 02/15/25 12:43 Blood Pressure 142/82 H 02/15/25 12:43 Pulse Oximetry 97 02/15/25 12:43 Oxygen Delivery Room Air 02/15/25 12:43 Temperature 98.4 F 02/15/25 12:43 Pulse Rate 65 02/15/25 12:43 Respiratory Rate 18 02/15/25 12:43 Blood Pressure 142/82 H 02/15/25 12:43 Pulse Oximetry 97 02/15/25 12:43 Oxygen Delivery Room Air 02/15/25 12:43 Discharge Plan Discharge Clinical Impression: Skin tear Patient Disposition: Home Condition: Stable Instructions: Antibiotic Form, Skin Avulsion (ED) Additional Instructions: Antibiotic as directed until completed. Wound care as directed. Have close follow-up with Plastic surgery. Patient Language: Romanian Prescriptions: New cephalexin 500 mg capsule 500 mg PO BID 7 Days Qty: 14 0RF No Action pravastatin 40 mg tablet 40 mg PO DAILY prednisone 5 mg tablet 5 mg PO DAILY methotrexate sodium 2.5 mg tablet 25 mg PO WEEKLY prednisone 2.5 mg tablet 2.5 mg PO DAILY trazodone 150 mg tablet 150 mg PO DAILY gabapentin 300 mg capsule 300 mg PO DAILY folic acid 1 mg tablet 1 tablet PO DAILY albuterol sulfate 90 mcg/actuation HFA aerosol inhaler 2 inh INHALATION Q4-6H PRN (Reason: Shortness Of Breath Or Wheezing) Xarelto 20 mg tablet 20 mg PO DAILY Follow-up/Referrals: Julito Reed MD [Physician] - Elizabeth Kelly MD [Primary Care Provider] -
[2025-02-15] MEDS: CEPHALEXIN 500 MG CAPSULE PO (15:34)
--- OUTSIDE RECORDS SUMMARY | 2025-02-15 15:39 | XMS_ITS | Continuity of Care Document ---
Author Organization [facility] Address [address] [place] [address] Phone Care Team Providers Care Cashier Name Role Phone Jeremiah Moore MD, MD [...] X-ray exam hand, 3+ views Thumb Spica [place] OTS 0 Thumb Spica [place] OTS 0 Kenalog Triamcinolone acetonide inj Asp/inject [...] Provider Providers Copied on Encounter [facility], [address], [id number], tel:[phone] [facility] Bilateral hands (chief complaint) Pain in right handPain in left handUnilateral primary osteoarthritis of first carpometacarpal joint, left handUnilateral primary osteoarthritis of first carpometacarpal joint, right handOther RA with rheumatoid factor of hand 0 Teresa Daniels. [address], [id number], [place]. tel:[phone] Office/outpa tient visit,[place]ly vall[facility], [address], [id number], [place] tel:[phone] [facility] bilateral hands (chief complaint) Unilateral primary osteoarthritis of first carpometacarpal joint, right handUnilateral primary osteoarthritis of first carpometacarpal joint, left handOther RA with rheumatoid factor of hand 8 Teresa Daniels. [address] [facility], [address], [id number], [place]. tel:[phone] Family History Family Member Type Diagnosis Age At Onset Father Problem (finding) Heart Disease Father Problem (finding) Osteoarthritis Mother Problem (finding) Cancer, unknown Payers Payer name Insurance type Covered alliance party ID Britanya charly(s) Osmartommyjaime Geena [id number] Social History Type Description Quantity Date Captured [...] lidocaine and Kenalog. I also gave him [place] thumb spica splints. Juventino reports that these [...] lidocaine and Kenalog. I also gave him [place] thumb spica splints. Juventino reports that these [...] I reviewed x-rays of both hands from [facility] taken on January 02, 2018. They show [...] the left thumb. I gave Melo new [place] Thumb Spica Splint today for the left [...] the right thumb. I also gave Melo [place] Thumb Spica Splint today for the right [...]
--- OUTSIDE RECORDS SUMMARY | 2025-02-15 15:39 | XMS_ITS | Clinical Summary ---
Author Organization [facility] Address [address] [place] [address] Care Team Providers Care Book Illustrator Name Role Phone Leticia Elizabeth Blood MD Primary Care Provider [phone] Macho Harrison MD Unavailable [phone] Colton Portillo MD Unavailable [phone] Allergies Active Allergy Reactions Criticality Noted Date [...] 07/13/2022 Assessment & Plan (10/08/2024 10:16 AM [employer]): Status post EVAR. Duplex shows stable stent graft repair decrease aneurysm sac size with no endoleak. Follow up 1 year with duplex. Assessment & Plan (09/20/2023 12:50 PM [employer]): Impression: Patient is status post endovascular repair of a 5.3 cm infrarenal abdominal aortic aneurysms. CT of abdomen pelvis reveals a patent endograft with a decreasing greenville aneurysms sac now measuring 3.7 cm with no endoleak seen. Plan: Continue ongoing risk factor modifications. -continue dual antiplatelet therapy of aspirin and Xarelto. -patient to follow-up in 1 year for re-evaluation with abdominal aortic duplex. Abnormal stress test 07/02/2022 Overview (07/02/2022): Added automatically from request for surgery [id number] FDC (current) use of systemic steroids Assessment & [...] are complete. Avoid live-vaccines unless reviewed with chief solution architect first. Discussed that we strongly recommend the flu and covid vaccines but he continues to decline. He will talk to his PCP about getting his second pneumonia vaccine though Abdominal aortic aneurysm (AAA) without rupture 05/16/2022 Assessment & Plan (09/14/2022 1:51 PM [employer]): Patient is status post AAA repair with PVR 07/13/2022 which was measuring 5.3 cm. States he is recovering well. Denies any concerns or complaints or claudication symptoms. Follow-up CTA shows the aneurysm is not measuring 5.1 cm with no endoleak. Discussed patient with Dr. Mary Harrison. Plan: Return in 1 year for routine surveillance with CTA. Assessment & Plan (08/01/2022 3:47 PM [employer]): Impression: Patient is status post endovascular repair [...] Hyperlipidemia Assessment & Plan (10/08/2024 10:16 AM [employer]): Hyperlipidemia chronic controlled. Continue pravastatin. Assessment & Plan (09/20/2023 12:50 PM [employer]): Impression: Chronic stable. Plan: Continue pravastatin Assessment [...] have his routine blood work updated at [facility] and we can trial the [...] - 02/09/2025 11:59 PM CDT Hospital Encounter [facility] [address] [place] [address] Discharge Disposition: Discharge to home or self care 02/02/2025 10:45 AM CDT Office Visit [facility] Pulmonology [address] [place] [address] Kat Ruiz MD Simple chronic bronchitis (HCC) (Primary Dx); Pulmonary air trapping; History of pulmonary embolism; Multiple pulmonary nodules; Psychophysiological insomnia; Cigarette nicotine dependence in remission; Hyperinflation of lungs; Rheumatoid arthritis involving multiple sites with positive rheumatoid factor (HCC) 12/30/2024 9:56 AM CDT - 12/30/2024 11:59 PM CDT Hospital Encounter [facility] Respiratory [address] [place] [address] Simple chronic bronchitis (HCC); Pulmonary air trapping; [...] (HCC) 07/2015 both legs, PE Hx of correction use of blood thinners xarelto AAA (abdominal [...] on file Legal Sex Male 1:59 AM [employer] Gender Identity Not on file Sexual Orientation Not on file Obstetrics History Last Filed Vital Signs Vital Sign Reading Time Taken Comments Blood Pressure 116/74 02/02/2025 10:32 AM CDT Pulse 60 02/02/2025 10:32 AM CDT Temperature 36.7 C (98 F) 10/27/2024 10:46 AM [employer] Respiratory Rate 18 02/02/2025 10:32 AM CDT [...] history exists Medical Devices Implanted Type Area Mule Spinner Device Identifier Shelf Expiration Date Model / Serial / Lot Business e via [place] Angio-Seal Vip 6fr Closere Device [id number] - [id number] Implanted:Qty: 1 on 07/04/2022 by Haresh Solis MD at [facility] Business e via [place] 01/30/2023 [id number] / / [id number] Or[employer] V[employer] Perclose 6fr Vascular Closure [id number] - [id number] Implanted:Qty: 4 on 07/13/2022 by Macho Harrison MD at [facility] Or[employer] Vascular [id number] / / [employer] [place] Excluder C3 23mm 14.5mm 19-21mm 12-13.5mm 12cm Sinusoidal [id number] - [id number] - [id number] Implanted:Qty: 1 on 07/13/2022 by Macho Harrison MD at [facility] N/A: Aorta [employer] [id number] 12/02/2024 [id number] / [id number] / [employer] Excluder 16mm 13.5-14.5mm 13.5cm Stent Abrasion Resistant [id number] - [id number] - [id number] Implanted:Qty: 1 on 07/13/2022 by Macho Harrison MD at [facility] [employer] [id number] 01/10/2025 [id number] / [id number] / [employer] Excluder 18mm 14.5-16.5mm 13.5cm Stent Abrasion Resistant [id number] - [id number] - [id number] Implanted:Qty: 1 on 07/13/2022 by Macho Harrison MD at [facility] [id number] 04/15/2025 [id number] / [id number] / Procedures Procedure Name Priority Date/Time Associated [...] Read Routine (OP Routine) 09/16/2023 8:47 AM [employer] Aftercare following surgery of the circulatory system [...] MD LAB BLOOD ORDERABLES Final Resul t [facility] [address] Department [place] [address] * Differential, auto (02/09/2025 10:08 AM CDT) Neutrophil abs 3.56 1.50 - 6.50 K/cumm Imm gran abs 0.02 0.00 - 0.10 K/cumm [facility] Lymphocyte abs 1.20 0.80 - 3.30 K/cumm [facility] Monocyte abs 0.77 0.20 - 0.80 K/cumm [facility] Eosinophil abs 0.10 0.00 - 0.50 K/cumm [facility] Basophil abs 0.04 0.00 - 0.10 K/cumm [facility] Neutrophil pct 62.5 % [facility] Comment: Interpretive Data Percent cell count reference ranges are not reported, since discordance with absolute values may lead to misinterpretation of CBC data. Current Interpretive Data was last revised on 2017. Imm gran pct 0.4 % [facility] Comment: Interpretive Data Percent cell count reference ranges are not reported, since discordance with absolute values may lead to misinterpretation of CBC data. Current Interpretive Data was last revised on 2017. Lymphocyte pct 21.1 % [facility] Comment: Interpretive Data Percent cell count reference ranges are not reported, since discordance with absolute values may lead to misinterpretation of CBC data. Current Interpretive Data was last revised on 2017. Monocyte pct 13.5 % [facility] Comment: Interpretive Data Percent cell count reference ranges are not reported, since discordance with absolute values may lead to misinterpretation of CBC data. Current Interpretive Data was last revised on 2017. Eosinophil pct 1.8 % [facility] Comment: Interpretive Data Percent cell count reference ranges are not reported, since discordance with absolute values may lead to misinterpretation of CBC data. Current Interpretive Data was last revised on 2017. Basophil pct 0.7 % [facility] Comment: Interpretive Data Percent cell count reference ranges are not reported, since discordance with absolute values may lead to misinterpretation of CBC data. Current Interpretive Data was last revised on 2017. Blood 02/09/2025 10:0 8 AM CDT 02/09/2025 1:25 PM CDT us Danica Lopez MD LAB BLOOD ORDERABLES Final Resul t [facility] [address] Department [place] [address] * (ABNORMAL) CBC with auto differential (02/09/2025 10:08 AM CDT) WBC 5.69 3.80 - 9.90 K/cumm Hgb 14.7 13.0 - 17.5 g/dL [facility] Hct 44.1 38.9 - 50.3 % [facility] Plt 190 150 - 400 K/cumm [facility] MPV 9.7 9.1 - 12.3 fL [facility] RBC 4.30 4.30 - 5.80 M/cumm [facility] MCV 102.6(H) 81.3 - 96.4 fL [facility] MCH 34.2(H) 27.1 - 33.3 pg [facility] MCHC 33.3 32.3 - 35.7 g/dL [facility] RDW CV 13.6 11.1 - 14.9 % [facility] RDW SD 51.0(H) 35.7 - 48.1 fL [facility] NRBC abs 0.00 0.00 - 0.01 K/cumm [facility] Blood 02/09/2025 10:0 8 AM CDT 02/09/2025 1:25 PM CDT Danica Lopez MD LAB BLOOD ORDERABLES Final Resul t [facility] [address] Department [place] [address] * (ABNORMAL) Comprehensive metabolic panel (02/09/2025 10:08 AM CDT) Sodium 140 135 - 145 mmol/L Potassium, pl 3.9 3.3 - 4.9 mmol/L [facility] Chloride 102 97 - 110 mmol/L [facility] CO2 25 22 - 32 mmol/L [facility] Anion gap 13 2 - 15 mmol/L [facility] BUN 13 6 - 25 mg/dL [facility] Creatinine 0.75(L) 0.80 - 1.30 mg/dL [facility] Glucose 97 70 - 199 mg/dL [facility] Comment: Interpretive Data Fasting glucose >/= 126 [...] 2022. Calcium 9.2 8.5 - 10.3 mg/dL [facility] Bilirubin, total 0.5 0.1 - 1.2 mg/dL [facility] Protein, pl 7.6 6.5 - 8.5 g/dL [facility] Albumin 4.4 3.5 - 5.0 g/dL [facility] Alk phos 82 40 - 130 Units/L [facility] ALT 22 7 - 55 Units/L [facility] AST 31 10 - 50 Units/L [facility] Blood 02/09/2025 10:0 8 AM CDT 02/09/2025 1:26 PM CDT Danica Lopez MD LAB BLOOD ORDERABLES Final Resul t [facility] [address] Department of Laboratories [place], [place] [id number] * Pulmonary Function Test - (12/30/2024 11:02 AM CDT) FVC POST 5.68 L 12/30/2024 11:04 AM CDT [facility] FEV1 POST 3.84 L 12/30/2024 11:04 AM CDT [facility] PCE2SKY-TFQC 67.52 % 12/30/2024 11:04 AM CDT [facility] XLR93-43% POST 2.12 L/s 12/30/2024 11:04 AM CDT [facility] PEF POST 10.16 L/s 12/30/2024 11:04 AM CDT [facility] DLCOc SB 23.16 ml/(min*mm Hg) 12/30/2024 11:04 AM CDT [facility] DLCO/VA PRE 2.73 ml/(min*mm Hg*L) 12/30/2024 11:04 AM CDT [facility] VA 8.51 L 12/30/2024 11:04 AM CDT [facility] TLC PRE 10.35 L 12/30/2024 11:04 AM CDT [facility] VC PRE 5.81 L 12/30/2024 11:04 AM CDT [facility] IC PRE 3.92 L 12/30/2024 11:04 AM CDT [facility] FRC PL PRE 6.22 L 12/30/2024 11:04 AM CDT [facility] ERV PRE 1.68 L 12/30/2024 11:04 AM CDT [facility] RV PRE 4.55 L 12/30/2024 11:04 AM CDT [facility] RAW PRE 1.62 cmH2O*s/L 12/30/2024 11:04 AM CDT [facility] VTG 6.59 L 12/30/2024 11:04 AM CDT [facility] FVC PRE 5.81 L 12/30/2024 11:04 AM CDT [facility] FEV1 PRE 3.78 L 12/30/2024 11:04 AM CDT [facility] [id number] 65.15 % 12/30/2024 11:04 AM CDT [facility] IYA54-49% PRE 1.89 L/s 12/30/2024 11:04 AM CDT [facility] PEF PRE 9.33 L/s 12/30/2024 11:04 AM CDT [facility] Anatomical Region Laterality Modality PFT 12/30/2024 10:0 [...] MD, FCCP Pulmonary and Critical Care Medicine [facility] Kat Ruiz MD PFT ORDERABLES Final Resul t * CTA Abdomen Pelvis (09/16/2023 8:47 AM [employer]) Anatomical Region Laterality Modality Body N/A Computed Tomogra phy 09/16/2023 1:37 PM [employer] Narrative 09/16/2023 1:56 PM [employer] EXAM DESCRIPTION: CTA ABDOMEN PELVIS REASON FOR [...] Findings Committee. J Am Christofer Radiol. 2017 Apr;14(8):4241-0033. FINDINGS: VASCULATURE: No dissection,intramural hematoma, rupture, or [...] been interval decrease in size of the greenville aneurysm sac. The sac measures 3.7 x [...] been interval decrease in size of the [place] aneurysm sac, currently measuring 3.7 x 3.0 [...] Yazmin Mckee M.D. TW T: Report ID: [id number] Reading Location: [id number] Procedure Note Yazmin Mckee MD - 09/16/2023 [...] Findings Committee. J Am Christofer Radiol. 2017 Apr;14(8):7057-0976. FINDINGS: VASCULATURE: No dissection,intramural hematoma, rupture, or [...] been interval decrease in size of the [place] aneurysmsac. The sac measures 3.7 x 3.0 [...] been interval decrease in size of the [place] aneurysm sac, currently measuring 3.7 x 3.0 [...] Yazmin Mckee M.D. TW T: Report ID: [id number] Reading Location: [id number] Macho Harrison MD IMG CT PROCEDURES Final Re sult * Hepatitis C antibody (06/29/2022 12:12 PM CDT) Hep C Ab Nonreactive Nonreactive [facility] Comment: Interpretive Data Nonreactive: Antibodies to HCV [...] GENERAL ORDER YU Edited Result - Final [facility] [address] Department [place] [address] from Last 3 Months or Most Recently Relevant to Health Maintenance Insurance MEDICARE COMMERCIAL GENERIC MEDICARE Member Subscriber Plan / Payer (Ef fective 2021-Present) Name:Juventino Chappell Member ID:[id number] Relation to Subscriber:Self Name:Juventino Chappell Subscriber ID:[id number] Payer ID:[id number] Group ID:Not on file Type:MEDICARE TRADITIONAL Address: [place] [phone] COMMERCIAL GENERIC COMMERCIAL GENERIC MEDICARE Advance Directives For more information, please contact: [phone] * Full Code (Latest Code Status on File) Date Activated Date Inactivated Comments 07/13/2022 2:35 PM 07/14/2022 9:13 PM * Full Code Date Activated Date Inactivated Comments 07/04/2022 11:51 AM 07/04/2022 6:19 PM Care Teams Book Illustrator Relationship Specialty Start Date End Date Elizabeth Kelly MD PCP - General Internal Medicine 04/06/20 Macho Harrison MD [address] [place] [address] [place] [address] Surgeon Vascular Surgery 05/08/22 Colton Portillo MD [address] [facility] [place] [address] Consulting Physician Cardiovascular Disease 06/26/22
--- OUTSIDE RECORDS SUMMARY | 2025-02-15 15:39 | XMS_ITS | Encounter Summary ---
Author Organization [facility] Facility Care Team Providers Care Flight Data Technician Name Role Phone Jean Raygoza MD Primary Care Provider [phone] Elizabeth Kelly MD Primary Care Provider [phone] Macho Harrison MD Unavailable [phone] Colton Portillo MD Unavailable [phone] Encounter Details Date Type Department Care Team (Latest Contact Info) Description 10/12/2016 Orders Only [facility]INCONV Provider, MD Dwight [address] [place], [place] [id number] Social History Tobacco Use Types Packs/Day Years Used Date Smoking Tobacco: Former Comments:Smoking History Pac ks/day: 2 Packs Alcohol Use Standard Drinks/Week Comments Yes 0 (1 standard drink = 0.6 oz pur e alcohol) Sex and Gender Information Value Date Recorded Sex Assigned at Not on file Legal Sex Male 1:59 AM LOIN TRIMMER Gender Identity Not on file Sexual Orientation Not on file documented as of this encounter Plan of Treatment Not on file documented as of this encounter Procedures Procedure Name Priority Date/Time Associated Diagnosis Comments PROCEDURE - RESULT 10/12/2016 12 :00 AM LOIN TRIMMER documented in this encounter Results * PROCEDURE - RESULT (10/12/2016 12:00 AM LOIN TRIMMER) Narrative 10/12/2016 12:00 AM LOIN TRIMMER Ordered by an unspecified provider. Historical Provider [...] documented as of this encounter Care Teams Flight Data Technician Relationship Specialty Start Date End Date Jean Raygoza MD PCP - General 01/04/17 04/05/20 Elizabeth Kelly MD PCP - General Internal Medicine 04/06/20 Macho Harrison MD [address] [facility] [place] [address] Surgeon Vascular Surgery 05/08/22 Colton Portillo MD [address] [place] [address] Consulting Physician Cardiovascular Disease 06/26/22 documented as of this encounter
--- OUTSIDE RECORDS SUMMARY | 2025-02-15 15:39 | XMS_ITS | Encounter Summary ---
Author Organization [facility] Facility Care Team Providers Care Lawn Mower Operator Name Role Phone Jean Raygoza MD Primary Care Provider [phone] Elizabeth Kelly MD Primary Care Provider [phone]- [phone] Macho Harrison MD Unavailable [phone] Colton Portillo MD Unavailable [phone] Encounter Details Date Type Department Care Team (Latest Contact Info) Description 10/24/2016 Orders Only [facility] CLINCONV Provider, MD Dwight [address] [place] [address] Social History Tobacco Use Types Packs/Day Years Used Date Smoking Tobacco: Former Comments:Smoking History Pac ks/day: 2 Packs Alcohol Use Standard Drinks/Week Comments Yes 0 (1 standard drink = 0.6 oz pur e alcohol) Sex and Gender Information Value Date Recorded Sex Assigned at Not on file Legal Sex Male 1:59 AM INFORMATION TECHNOLOGY OFFICER Gender Identity Not on file Sexual Orientation Not on file documented as of this encounter Plan of Treatment Not on file documented as of this encounter Procedures Procedure Name Priority Date/Time Associated Diagnosis Comments PROCEDURE - RESULT 10/24/2016 12 :00 AM INFORMATION TECHNOLOGY OFFICER documented in this encounter Results * PROCEDURE - RESULT (10/24/2016 12:00 AM INFORMATION TECHNOLOGY OFFICER) Narrative 10/24/2016 12:00 AM INFORMATION TECHNOLOGY OFFICER Ordered by an unspecified provider. Historical Provider [...] documented as of this encounter Care Teams Lawn Mower Operator Relationship Specialty Start Date End Date Jean Raygoza MD PCP - General 01/04/17 04/05/20 Elizabeth Kelly MD PCP - General Internal Medicine 04/06/20 Macho Harrison MD [address] [facility] [place] [address] Surgeon Vascular Surgery 05/08/22 Colton Portillo MD [address] [place] [address] Consulting Physician Cardiovascular Disease 06/26/22 documented as of this encounter
--- OUTSIDE RECORDS SUMMARY | 2025-02-15 15:39 | XMS_ITS | Encounter Summary ---
Author Organization [facility] Facility Care Team Providers Care Rehabilitation Aide/Scheduler Name Role Phone Jean Raygoza MD Primary Care Provider [phone] Elizabeth Kelly MD Primary Care Provider [phone]- [phone] Macho Harrison MD Unavailable [phone] Colton Portillo MD Unavailable [phone] Encounter Details Date Type Department Care Team (Latest Contact Info) Description 11/14/2016 Orders Only [facility] CLINCONV Provider, MD Dwight [address] [place], [place] [id number] Social History Tobacco Use Types Packs/Day Years Used Date Smoking Tobacco: Former Comments:Smoking History Pac ks/day: 2 Packs Alcohol Use Standard Drinks/Week Comments Yes 0 (1 standard drink = 0.6 oz pur e alcohol) Sex and Gender Information Value Date Recorded Sex Assigned at Not on file Legal Sex Male 1:59 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
--- OUTSIDE RECORDS SUMMARY | 2025-02-15 15:39 | XMS_ITS | Encounter Summary ---
Author Organization [facility] Address [address] [place] [address] Care Team Providers Care Computer Language Coder Name Role Phone Elizabeth Kelly MD Primary Care Provider [phone] Encounter Details Date Type Department Care Team (Late st Contact Info) Description 06/05/2024 Lab Requisition [facility] - DermPath Lab [address] [facility] [place] [id number] James Rivas MD [facility] DERMATOLOGY [address] [place] [phone] Social History Tobacco Use Types Packs/Day Years Used Date Smoking Tobacco: Never Assessed Sex and Gender Information Value Date Recorded Sex Assigned at Not on file Legal Sex Male 6:31 AM AUDIO VISUAL PRODUCTION SPECIALIST Gender Identity Not on file Sexual Orientation Not on file documented as of this encounter Plan of Treatment Not on file documented as of this encounter Procedures Procedure Name Priority Date/Time Associated Diagnosis Comments DERMATOPATHOLOGY Routine 06/04/2024 12:0 0 AM CDT documented in this encounter Results * DERMATOPATHOLOGY (06/04/2024 12:00 AM CDT) Case Report Dermatopathology Report Case: [id number] Authorizing Provider: James Rivas MD Collected: 06/04/2024 12:00 AM Ordering Location: [facility] - Received: 06/05/2024 03:05 PM [...] of a non-oriented ellipse of skin measuring 90x57g0 mm. The epidermal surface is unremarkable. The [...] purposes. Billing Codes Specimen Charges Stain Charges 57108 1 3:48 PM CDT DERMATOPATHOLOGY LABORATORY Embedded Images 3:48 PM CDT DERMATOPATHOLOGY LABORATORY Pathology/Cytolog y TISSUE SPECIMEN FROM SKIN / Unknown 06/04/2024 06/05/2024 3:05 PM CDT James Rivas MD LAB - PATHOLOGY/CYTOLOGY NATHAN REZA Final Result DERMATOPATHOLOGY LABORATORY [facility] - Department of Dermatology [facility] Medicine [address] [place] [address], [address] [phone] documented in this encounter Visit Diagnoses Not on filedocumented in this encounter Care Teams Computer Language Coder Relationship Specialty Start Date End Date Elizabeth Kelly MD [address] [place] [address] PCP - General 02/12/22 documented as of this encounter
--- OUTSIDE RECORDS SUMMARY | 2025-02-15 15:39 | XMS_ITS | Clinical Summary ---
Author Organization [facility] Address [address] [facility], [address] [address] Phone Care Team Providers Care Press Tender Star Signal Name Role Phone Fox Leo MD Primary Care Provider [phone] Twin Bowen DO Unavailable [phone] Social History Tobacco Use Types Packs/Day [...] Most Recently Relevant to Health Maintenance Insurance [employer] Care Teams Press Tender Star Signal Relationship Specialty Start Date End Date Fox Leo MD PCP - General Internal Medicine 02/14/16 Twin Bowen DO Gastroenterology 02/14/16
--- OUTSIDE RECORDS SUMMARY | 2025-02-15 15:39 | XMS_ITS | Encounter Summary ---
Author Organization [facility] Address [address] [place] [address] Phone Care Team Providers Care Planer Off Bearer Name Role Phone Jean Raygoza MD Primary Care Provider [phone] Elizabeth Kelly MD Primary Care Provider [phone] Macho Harrison MD Unavailable [phone] Colton Portillo MD Unavailable [phone] Encounter Details Date Type Department Care Team (Late st Contact Info) Description 01/02/2018 Orders Only [facility] ProviderDwight MD [address] [place] [address] Social History Tobacco Use Types Packs/Day Years Used Date Smoking Tobacco: Former Smokeless Tobacco: Never Comments:Smoking History Pac ks/day: 2 Packs Alcohol Use Standard Drinks/Week Comments Yes 0 (1 standard drink = 0.6 oz pur e alcohol) Sex and Gender Information Value Date Recorded Sex Assigned at Not on file Legal Sex Male 1:59 AM RESIDENTIAL APPLIANCE REPAIR TECHNICIAN Gender Identity Not on file Sexual Orientation [...] documented as of this encounter Care Teams Planer Off Bearer Relationship Specialty Start Date End Date Jean Raygoza MD PCP - General 01/04/17 04/05/20 Elizabeth Kelly MD PCP - General Internal Medicine 04/06/20 Macho Harrison MD [address] [facility] [place] [address] Surgeon Vascular Surgery 05/08/22 Colton Portillo MD [address] [facility] [place] [address] Consulting Physician Cardiovascular Disease 06/26/22 documented as of this encounter
--- OUTSIDE RECORDS SUMMARY | 2025-02-15 15:39 | XMS_ITS | Clinical Summary ---
Author Organization [facility] Address [address] [place] [address] Care Team Providers Care Cad Programmer Name Role Phone Elizabeth Kelly MD Primary Care Provider [phone] Source Comments [facility],non-owned Affiliates and Associated Physician Practices is amultiple site organization consisting of ambulatory clinics and hospital sitesin [place], [place] and [place]. This disclosure is being madepursuant to the Care Everywhere program and may not contain all information available regarding this patient. Last updated 18.[facility] Social History Tobacco Use Types Packs/Day Years Used Date Smoking Tobacco: Never Assessed Sex and Gender Information Value Date Recorded Sex Assigned at Not on file Legal Sex Male 6:31 AM DOSIMETRIST Gender Identity Not on file Sexual Orientation [...] to complete this topic Insurance MEDICARE MEDICARE [facility] [place] [id number] Care Teams Cad Programmer Relationship Specialty Start Date End Date Elizabeth Kelly MD [address] [place] [address] PCP - General 02/12/22
--- OUTSIDE RECORDS SUMMARY | 2025-02-15 15:39 | XMS_ITS | CONTINUITY OF CARE DOCUMENT ---
Author Name sunny correa Address Unknown Organization [facility] Address [address] [place] [address] [address] [place] [address] Phone [phone] Care Team Providers Care Stain Maker Name Role Phone MANNY SERRA MD Unavailable [phone] MANNY SERRA MD Unavailable [phone] INSURANCE PROVIDERS Payer name Policy type / Coverage type Grant red republican ID [employer] [facility] Other [id number]
--- OUTSIDE RECORDS SUMMARY | 2025-02-15 15:39 | XMS_ITS | Referral Summary ---
Author Organization [facility] Address [address] [place] [address] Care Team Providers Care Supervisor Plating And Point Assembly Name Role Phone Leticia Elizabeth Blood MD Primary Care Provider [phone] Macho Harrison MD Unavailable [phone] Colton Portillo MD Unavailable [phone] Encounters Date Type Department Care Team Description 02/09/2025 1:16 PM CDT - 02/09/2025 11:59 PM CDT Hospital Encounter [facility] [address] [place] [address] Discharge Disposition: Discharge to home or self care 02/02/2025 10:45 AM CDT Office Visit [facility] Pulmonology [address] [facility] [address] [place] [phone] Kat Ruiz MD Simple chronic bronchitis (HCC) (Primary Dx); Pulmonary air trapping; History of pulmonary embolism; Multiple pulmonary nodules; Psychophysiological insomnia; Cigarette nicotine dependence in remission; Hyperinflation of lungs; Rheumatoid arthritis involving multiple sites with positive rheumatoid factor (HCC) 12/30/2024 9:56 AM CDT - 12/30/2024 11:59 PM CDT Hospital Encounter [facility] [address] [place] [address] Simple chronic bronchitis (HCC); Pulmonary air trapping; [...] 07/13/2022 Assessment & Plan (10/08/2024 10:[address] JUSTICE): Status post EVAR. Duplex shows stable stent graft repair decrease aneurysm sac size with no endoleak. Follow up 1 year with duplex. Assessment & Plan (09/20/2023 12:[address] JUSTICE): Impression: Patient is status post endovascular repair of a 5.3 cm infrarenal abdominal aortic aneurysms. CT of abdomen pelvis reveals a patent endograft with a decreasing oneida aneurysms sac now measuring 3.7 cm with no endoleak seen. Plan: Continue ongoing risk factor modifications. -continue dual antiplatelet therapy of aspirin and Xarelto. -patient to follow-up in 1 year for re-evaluation with abdominal aortic duplex. Abnormal stress test 07/02/2022 Overview (07/02/2022): Added automatically from request for surgery [id number] longterm (current) use of systemic steroids Assessment & [...] are complete. Avoid live-vaccines unless reviewed with stove bottom worker first. Discussed that we strongly recommend the flu and covid vaccines but he continues to decline. He will talk to his PCP about getting his second pneumonia vaccine though Abdominal aortic aneurysm (AAA) without rupture 05/16/2022 Assessment & Plan (09/14/2022 1:[address] JUSTICE): Patient is status post AAA repair with PVR 07/13/2022 which was measuring 5.3 cm. States he is recovering well. Denies any concerns or complaints or claudication symptoms. Follow-up CTA shows the aneurysm is not measuring 5.1 cm with no endoleak. Discussed patient with Dr. Mary Harrison. Plan: Return in 1 year for routine surveillance with CTA. Assessment & Plan (08/01/2022 3:[address] JUSTICE): Impression: Patient is status post endovascular repair [...] Hyperlipidemia Assessment & Plan (10/08/2024 10:[address] JUSTICE): Hyperlipidemia chronic controlled. Continue pravastatin. Assessment & Plan (09/20/2023 12:[address] JUSTICE): Impression: Chronic stable. Plan: Continue pravastatin Assessment [...] have his routine blood work updated at [facility] and we can trial the addition of [...] on file Legal Sex Male 1:[address] JUSTICE Gender Identity Not on file Sexual Orientation Not on file Last Filed Vital Signs Vital Sign Reading Time Taken Comments Blood Pressure 116/74 02/02/2025 10:32 AM CDT Pulse 60 02/02/2025 10:32 AM CDT Temperature 36.7 C (98 F) 10/27/2024 10:[address] JUSTICE Respiratory Rate 18 02/02/2025 10:32 AM CDT Oxygen Saturation 97% 02/02/2025 10:32 AM CDT Inhaled Oxygen Concentration - - Weight 101.2 kg (223 lb) 02/02/2025 10:32 AM CDT Height 188 cm (6' 2) 02/02/2025 10:32 AM CDT Body Mass Index 28.63 02/02/2025 10:32 AM CDT Plan of Treatment Not on file Medical Devices Implanted Type Area Special Events Director Device Identifier Shelf Expiration Date Model / Serial / Lot Kereos Angio-Seal Vip 6fr Closere Device [id number] - [id number] Implanted:Qty: 1 on 07/04/2022 by Haresh Solis MD at [facility]um[employer] [facility] 01/30/2023 [id number] / / [id number] 6 Orr Vascular Perclose 6fr Vascular Closure [id number] - [id number] Implanted:Qty: 4 on 07/13/2022 by Macho Harrison MD at [facility] Orr Vascular [id number] / / [employer] [place] Excluder C3 23mm 14.5mm 19-21mm 12-13.5mm 12cm Sinusoidal [id number] - [id number] - [id number] Implanted:Qty: 1 on 07/13/2022 by Macho Harrison MD at [facility] N/A: Aorta [employer] [id number] 12/02/2024 [id number] / [id number] / [employer] Excluder 16mm 13.5-14.5mm 13.5cm Stent Abrasion Resistant [id number] - [id number] - [id number] Implanted:Qty: 1 on 07/13/2022 by Macho Harrison MD at [facility] [employer] [id number] 01/10/2025 [id number] / [id number] / [employer] Excluder 18mm 14.5-16.5mm 13.5cm Stent Abrasion Resistant [id number] - [id number] - [id number] Implanted:Qty: 1 on 07/13/2022 by Macho Harrison MD at [facility] [employer] [id number] 04/15/2025 [id number] / [id number] / Procedures Procedure Name Priority Date/Time Associated [...] Read Routine (OP Routine) 09/16/2023 8:[address] JUSTICE Aftercare following surgery of the circulatory system [...] MD LAB BLOOD ORDERABLES Final Resul t [facility] [address] Department [place] [address] * Differential, auto (02/09/2025 10:08 AM CDT) Neutrophil abs 3.56 1.50 - 6.50 K/cumm Imm gran abs 0.02 0.00 - 0.10 K/cumm [facility] Lymphocyte abs 1.20 0.80 - 3.30 K/cumm [facility] Monocyte abs 0.77 0.20 - 0.80 K/cumm [facility] Eosinophil abs 0.10 0.00 - 0.50 K/cumm [facility] Basophil abs 0.04 0.00 - 0.10 K/cumm [facility] Neutrophil pct 62.5 % [facility] Comment: Interpretive Data Percent cell count reference ranges are not reported, since discordance with absolute values may lead to misinterpretation of CBC data. Current Interpretive Data was last revised on 2017. Imm gran pct 0.4 % [facility] Comment: Interpretive Data Percent cell count reference ranges are not reported, since discordance with absolute values may lead to misinterpretation of CBC data. Current Interpretive Data was last revised on 2017. Lymphocyte pct 21.1 % [facility] Comment: Interpretive Data Percent cell count reference ranges are not reported, since discordance with absolute values may lead to misinterpretation of CBC data. Current Interpretive Data was last revised on 2017. Monocyte pct 13.5 % [facility] Comment: Interpretive Data Percent cell count reference ranges are not reported, since discordance with absolute values may lead to misinterpretation of CBC data. Current Interpretive Data was last revised on 2017. Eosinophil pct 1.8 % [facility] Comment: Interpretive Data Percent cell count reference ranges are not reported, since discordance with absolute values may lead to misinterpretation of CBC data. Current Interpretive Data was last revised on 2017. Basophil pct 0.7 % [facility] Comment: Interpretive Data Percent cell count reference ranges are not reported, since discordance with absolute values may lead to misinterpretation of CBC data. Current Interpretive Data was last revised on 2017. Blood 02/09/2025 10:0 8 AM CDT 02/09/2025 1:25 PM CDT us Danica Lopez MD LAB BLOOD ORDERABLES Final Resul t Performing Organization Address City/[facility]/ZIP Co de Phone Number [facility] [address] [place] [address] * (ABNORMAL) CBC with auto differential (02/09/2025 10:08 AM CDT) WBC 5.69 3.80 - 9.90 K/cumm Hgb 14.7 13.0 - 17.5 g/dL [facility] Hct 44.1 38.9 - 50.3 % [facility] Plt 190 150 - 400 K/cumm [facility] MPV 9.7 9.1 - 12.3 fL [facility] RBC 4.30 4.30 - 5.80 M/cumm [facility] MCV 102.6(H) 81.3 - 96.4 fL [facility] MCH 34.2(H) 27.1 - 33.3 pg [facility] MCHC 33.3 32.3 - 35.7 g/dL [facility] RDW CV 13.6 11.1 - 14.9 % [facility] RDW SD 51.0(H) 35.7 - 48.1 fL [facility] NRBC abs 0.00 0.00 - 0.01 K/cumm [facility] Blood 02/09/2025 10:0 8 AM CDT 02/09/2025 1:25 PM CDT us Danica Lopez MD LAB BLOOD ORDERABLES Final Resul t Performing Organization Address City/[facility]/ZIP Co de Phone Number [facility] [address] [place] [place] [address] * (ABNORMAL) Comprehensive metabolic panel (02/09/2025 10:08 AM CDT) Pathologist [facility] Sodium 140 135 - 145 mmol/L Potassium, pl 3.9 3.3 - 4.9 mmol/L [facility] Chloride 102 97 - 110 mmol/L [facility] CO2 25 22 - 32 mmol/L [facility] Anion gap 13 2 - 15 mmol/L [facility] BUN 13 6 - 25 mg/dL [facility] Creatinine 0.75(L) 0.80 - 1.30 mg/dL [facility] Glucose 97 70 - 199 mg/dL [facility] Comment: Interpretive Data Fasting glucose >/= 126 [...] 2022. Calcium 9.2 8.5 - 10.3 mg/dL [facility] Bilirubin, total 0.5 0.1 - 1.2 mg/dL [facility] Protein, pl 7.6 6.5 - 8.5 g/dL [facility] Albumin 4.4 3.5 - 5.0 g/dL [facility] Alk phos 82 40 - 130 Units/L [facility] ALT 22 7 - 55 Units/L [facility] AST 31 10 - 50 Units/L [facility] Blood 02/09/2025 10:0 8 AM CDT 02/09/2025 1:26 PM CDT us Danica Lopez MD LAB BLOOD ORDERABLES Final Resul t [facility] [address] Department [place] [address] * Pulmonary Function Test - (12/30/2024 11:02 AM CDT) [facility] FVC POST 5.68 L 12/30/2024 11:04 AM CDT [facility] FEV1 POST 3.84 L 12/30/2024 11:04 AM CDT [facility] KPT6VXC-TDOD 67.52 % 12/30/2024 11:04 AM CDT [facility] FZG55-54% POST 2.12 L/s 12/30/2024 11:04 AM CDT [facility] PEF POST 10.16 L/s 12/30/2024 11:04 AM CDT [facility] DLCOc SB 23.16 ml/(min*mm Hg) 12/30/2024 11:04 AM T [facility] DLCO/VA PRE 2.73 ml/(min*mm Hg*L) 12/30/2024 11:04 AM CDT [facility] VA 8.51 L 12/30/2024 11:04 AM T [facility] TLC PRE 10.35 L 12/30/2024 11:04 AM CDT [facility] VC PRE 5.81 L 12/30/2024 11:04 AM CDT [facility] IC PRE 3.92 L 12/30/2024 11:04 AM CDT [facility] FRC PL PRE 6.22 L 12/30/2024 11:04 AM CDT [facility] ERV PRE 1.68 L 12/30/2024 11:04 AM CDT [facility] RV PRE 4.55 L 12/30/2024 11:04 AM T [facility] RAW PRE 1.62 cmH2O*s/L 12/30/2024 11:04 AM CDT [facility] VTG 6.59 L 12/30/2024 11:04 AM T [facility] FVC PRE 5.81 L 12/30/2024 11:04 AM T [facility] FEV1 PRE 3.78 L 12/30/2024 11:04 AM CDT [facility] POD0IGX-BJP 65.15 % 12/30/2024 11:04 AM CDT [facility] ENZ39-05% PRE 1.89 L/s 12/30/2024 11:04 AM T [facility] PEF PRE 9.33 L/s 12/30/2024 11:04 AM T [facility] Anatomical Region Laterality Modality PFT [...] ambulation. Electronically signed by Foreign Hagen MD, [facility] Kat Ruiz MD PFT ORDERABLES Final Resul t * CTA Abdomen Pelvis (09/16/2023 8:[address] JUSTICE) Anatomical Region Laterality Modality Body N/A Computed Tomogra phy 09/16/2023 1:[address] JUSTICE Narrative 09/16/2023 1:[address] JUSTICE EXAM DESCRIPTION: CTA ABDOMEN PELVIS REASON FOR [...] the ACR Incidental Findings Committee. J Am Chrisotfer Radiol. 2017 Apr;14(8):3613-3892. FINDINGS: VASCULATURE: No dissection,intramural hematoma, rupture, or [...] been interval decrease in size of the oneida aneurysm sac. The sac measures 3.7 x [...] been interval decrease in size of the oneida aneurysm sac, currently measuring 3.7 x 3.0 [...] Yazmin Mckee M.D. TW T: Report ID: [id number] Reading Location: [place] [address] Procedure Note Yazmin Mckee MD - 09/16/2023 [...] Findings Committee. J Am Christofer Radiol. 2017 Apr;14(8):4174-0633. FINDINGS: VASCULATURE: No dissection,intramural hematoma, rupture, or [...] been interval decrease in size of the oneida aneurysmsac. The sac measures 3.7 x 3.0 [...] been interval decrease in size of the oneida aneurysm sac, currently measuring 3.7 x 3.0 [...] Yazmin Mckee M.D. TW T: Report ID: [id number] Reading Location: [place] [address] us Macho Harrison MD IM CT PROCEDURES Final Re sult * Hepatitis C antibody (06/29/2022 12:12 PM CDT) Hep C Ab Nonreactive Nonreactive [facility] Comment: Interpretive Data Nonreactive: Antibodies to [...] GENERAL ORDER YU Edited Result - Final [facility] [address] [place] [address] from Last 3 Months or Most Recently Relevant to Health Maintenance Insurance MEDICARE COMMERCIAL GENERIC MEDICARE COMMERCIAL GENERIC COMMERCIAL GENERIC MEDICARE Advance Directives For more information, please contact: [phone] * Full Code (Latest Code Status on File) Date Activated Date Inactivated Comments 07/13/2022 2:35 PM 07/14/2022 9:13 PM * Full Code Date Activated Date Inactivated Comments 07/04/2022 11:51 AM 07/04/2022 6:19 PM Care Teams Supervisor Plating And Point Assembly Relationship Specialty Start Date End Date Elizabeth Kelly MD PCP - General Internal Medicine 04/06/20 Macho Harrison MD [address] [facility] [place] [address] Surgeon Vascular Surgery 05/08/22 Colton Portillo MD [address] [facility] [place], [place] [id number] Consulting Physician Cardiovascular Disease 06/26/22
--- OUTSIDE RECORDS SUMMARY | 2025-02-15 15:39 | XMS_ITS | Encounter Summary ---
Author Organization [facility] Address [address] [place] [address] Phone Care Team Providers Care Regional Wildlife Agent Name Role Phone Jean Raygoza MD Primary Care Provider [phone] Elizabeth Kelly MD Primary Care Provider [phone] Macho Harrison MD Unavailable [phone] Colton Portillo MD Unavailable [phone] Encounter Details Date Type Department Care Team (Late st Contact Info) Description 10/18/2017 Orders Only [facility] ProviderDwight MD [address] [place] [address] Social History Tobacco Use Types Packs/Day Years Used Date Smoking Tobacco: Former Smokeless Tobacco: Never Comments:Smoking History Pac ks/day: 2 Packs Alcohol Use Standard Drinks/Week Comments Yes 0 (1 standard drink = 0.6 oz pur e alcohol) Sex and Gender Information Value Date Recorded Sex Assigned at Not on file Legal Sex Male 1:59 AM SHOE CEMENTER Gender Identity Not on file Sexual Orientation Not on file documented as of this encounter Plan of Treatment Not on file documented as of this encounter Procedures Procedure Name Priority Date/Time Associated Diagnosis Comments DISCHARGE LABORATORY CUMULATIVE REPORT 10/18/2017 12:00 AM SHOE CEMENTER documented in this encounter Results * DISCHARGE LABORATORY CUMULATIVE REPORT (10/18/2017 12:00 AM SHOE CEMENTER) Narrative 10/18/2017 12:00 AM SHOE CEMENTER Ordered by an unspecified provider. us Historical [...] documented as of this encounter Care Teams Regional Wildlife Agent Relationship Specialty Start Date End Date Jean Raygoza MD PCP - General 01/04/17 04/05/20 Elizabeth Kelly MD PCP - General Internal Medicine 04/06/20 Macho Harrison MD [address] [facility] [place] [address] Surgeon Vascular Surgery 05/08/22 Colton Portillo MD [address] [place] [address] Consulting Physician Cardiovascular Disease 06/26/22 documented as of this encounter
== END 2025-02-15 15:38 | disposition home or self-care (01) ==
PROVIDERS: Emergency Provider Emergency Medicine; PCP Internal Medicine
DX: S81.811A Laceration without foreign body, right lower leg, initial encounter (principal); Z87.891 Personal history of nicotine dependence; Z79.01 Long term (current) use of anticoagulants; Z79.899 Other long term (current) drug therapy; W26.8XXA Contact with other sharp object(s), not elsewhere classified, initial encounter
CPT/HCPCS: 99283; A9270

== ENCOUNTER 2025-03-12 09:16 | Outpatient (CLI) | payer MEDICARE, SELFPAY ==
--- NOTE | ~2025-03-12 | MR_ITS ---
MRI of the lumbar spine Clinical History: Radiculopathy Technique: Axial T2-weighted images, and sagittal T1-weighted, T2-weighted, and T2 fat-sat images wer e acquired. COMPARISON: 07/02/2023 Findings: No acute fracture identified. Stable osseous alignment as compared to prior exam. There is 10 mm anterolisthesis of L5 over S1. There is 7 mm retrolisthesis of L3 over L4. No suspicious bone m arrow signal abnormality seen. At L1-L2, there is minimal disc bulge. There is moderate to advanced facet arthropathy, right worse t mitchell left. No spinal canal stenosis. There is moderate to advanced right neural foraminal narrowing. L eft neural foramen preserved. At L2-L3, there is mild disc bulge with moderate to advanced facet hypertrophy. No spinal canal steno sis. There is mild right neural foraminal narrowing. Left neural foramen preserved. At L3-L4, there is moderate degenerative distended. There is disc bulge with severe facet arthropathy . There is minimal central canal stenosis. There is severe bilateral neural foraminal contrast. At L4-L5, there is mild disc bulge with severe facet arthropathy. There is mild central canal stenosi s. There is severe bilateral neural foraminal conference. At L5-S1, there is advanced degenerative disc narrowing. There is diffuse disc bulge with severe face t arthropathy. No central canal stenosis. There is severe bilateral neural foraminal compromise. Paravertebral soft tissues are unremarkable. Impression: Advanced degenerative spondylosis, with multilevel severe neural foraminal narrowing, as detailed abo ve. 7 mm retrolisthesis of L3 over L4. 10 mm anterolisthesis of L5 over S1. Reviewed, dictated and finalized at location . Impression: Advanced degenerative spondylosis, with multilevel severe neural foraminal narr owing, as detailed above. 7 mm retrolisthesis of L3 over L4. 10 mm anterolisthesis of L5 over S1.
== END 2025-03-12 09:17 | disposition home or self-care (01) ==
LOC: MICIMG 09:17
PROVIDERS: PCP Internal Medicine; Visit Provider Nurse Practitioner Family
DX: M47.816 Spondylosis without myelopathy or radiculopathy, lumbar region (principal); M43.16 Spondylolisthesis, lumbar region; M43.17 Spondylolisthesis, lumbosacral region
CPT/HCPCS: 72148

== ENCOUNTER 2025-07-06 00:41 | Day surgery (SDC) | payer MEDICARE, SELFPAY ==
--- OUTSIDE RECORDS SUMMARY | 2020-06-30 04:40 | XMS_ITS | Continuity of Care Document ---
Author Organization [facility] Address [address] [place] [address] Phone Care Team Providers Care Financial Coordinator Name Role Phone Jeremiah Moore MD, MD Unavailable Unavail able Allergies, Adverse Reactions, Alerts Substance Reaction Status Criticality No Known Allergies Active No Inform ation Medications Medication Instructions Dosage Effective Dates (start - stop) Status Comments Humira Pen 40 mg/0.8 mL subcutaneous - Active aspirin 81 mg tablet,delayed release - Active Bactroban 2 % topical cream - Ac tive cyclobenzaprine 10 mg tablet - A ctive folic acid 1 mg tablet - Active methotrexate sodium 2.5 mg tablet - Active multivitamin tablet - Active oxycodone-acetaminophen 5 mg-325 mg tablet - Active prednisone 5 mg tablet - Active prednisone 2.5 mg tablet - Activ e Protonix 40 mg tablet,delayed release - Active tramadol 50 mg tablet - Active Xarelto 20 mg tablet - Active trazodone 100 mg tablet - Active Procedures Procedure Date X-ray exam hand, 3+ views Thumb Spica Branson OTS 0 Thumb Spica Branson OTS 0 Kenalog Triamcinolone acetonide inj Asp/inject Minor joint or bursa w/o US g uidance Kenalog Triamcinolone acetonide inj Asp/inject Minor joint or bursa w/o US g uidance Office/outpatient visit,est, mod 2019 Luiza Baraba Splint Off The Shelf Luiza Baraba Splint Off The Shelf Asp/inject Minor joint or bursa w/o US g uidance Kenalog Triamcinolone acetonide inj Office/outpatient visit,lesly valles 2017 Advance Directives Directive Yes / No Effective Date File Name No Information Encounters Encounter Description Practice Location Reason(s) For Visit Diagnoses Date Provider Providers Copied on Encounter [facility], [address], [id number], tel:[phone] [facility] Bilateral hands (chief complaint) Pain in right handPain in left handUnilateral primary osteoarthritis of first carpometacarpal joint, left handUnilateral primary osteoarthritis of first carpometacarpal joint, right handOther RA with rheumatoid factor of hand 0 Teresa Daniels. [address], [id number], [place]. tel:[phone] Office/outpa tient visit,lesly valles [facility], [address], [id number], [place] tel:[phone] [facility] bilateral hands (chief complaint) Unilateral primary osteoarthritis of first carpometacarpal joint, right handUnilateral primary osteoarthritis of first carpometacarpal joint, left handOther RA with rheumatoid factor of hand 8 Teresa Daniels. [address] [facility], [address], [id number], [place]. tel:[phone] Family History Family Member Type Diagnosis Age At Onset Father Problem (finding) Heart Disease Father Problem (finding) Osteoarthritis Mother Problem (finding) Cancer, unknown Payers Payer name Insurance type Covered constitution party ID Britanya charly(s) Osmartommyjaime Geena [id number] Social History Type Description Quantity Date Captured Comments Alcohol Use Details Unknown Caffeine Use Details Unknown Tobacco Use Status No Information Smoking Status Former smoker Sex Male Vital Signs Date / Time: Height Weight BMI Pulse Rate Blood Pressure Temperature Respiratory Rate Body Surface Area Head Circumference Head Circ. Percentile Wt./Jhonatan. Percentile BMI percentile Pulse Ox Inhaled Ox 11:34 AM 74.00 in 111.130 kg (245.00 lbs) 31.4 6 kg/m mickey (2) Chief Complaint And Reason For Visit From encounter dated '06/30/2020 10:40'. Bilateral hands (chief complaint). Description: Juventino returns to the office today on June 30, 2020. He is here for followup of osteoarthritis at the carpometacarpal joints at the bases of both thumbs. Juventino reminds me that he also has rheumatoid arthritis. Juventino was last seen in the office 2-1/2years ago back on January 15, 2018. At that time, I injected both thumb CMC joints with lidocaine and Kenalog. I also gave him Branson thumb spica splints. Juventino reports that these measures helped for over 2 years, but his pain has now returned. He has also worn out the splints. Reason For Referral Reason For Referral No Information Plan Of Treatment Date Type Action Status Referral Ordered: X-ray exam hand, 3+ views Bilateral ordered History Of Present Illness Encounter Date Complaint History Of Prese nt Illness Bilateral hands Juventino returns to the office today on June 30, 2020. He is here for followup of osteoarthritis at the carpometacarpal joints at the bases of both thumbs. Juventino reminds me that he also has rheumatoid arthritis. Juventino was last seen in the office 2-1/2 years ago back on January 15, 2018. At that time, I injected both thumb CMC joints with lidocaine and Kenalog. I also gave him Branson thumb spica splints. Juventino reports that these measures helped for over 2 years, but his pain has now returned. He has also worn out the splints. bilateral hands Juventino presents t o the office today on January 15, 2018. He is here because of pain in both hands. Juventino reports that he has had pain in both hands for about 3 months. He is also concerned about losing mobility in the thumbs. Juventino had been diagnosed with rheumatoid arthritis. Juventino does not describe any numbness or tingling in either hand. He rates his pain a 5 on a scale of 0-10. He describes the pain as aching and sharp. He also describes decreased motion, stiffness, and swelling. Juventino presents today for further evaluation and treatment of both hands. I reviewed x-rays of both hands from [facility] taken on January 02, 2018. They show joint space narrowing and irregularity at the carpometacarpal joints at the bases of the thumbs. Small osteophytes are also seen. Degenerative changes are also noted at the metacarpophalangeal joints of both thumbs, and the metacarpophalangeal joints of the index and middle fingers, and the distal radioulnar joints of both wrists. Functional Status Date Functional Assessmen t No Information Instructions Date Instruction Additional Infor mation No Information Assessments Type Assessment Date assessment Pain in right hand assessment Pain in left hand assessment Unilateral primary o steoarthritis of first carpometacarpal joint, left hand assessment Unilateral primary o steoarthritis of first carpometacarpal joint, right hand assessment Other RA with rheumatoid factor of hand impression We discussed treatme nt options for the left thumb carpometacarpal joint osteoarthritis. We decided to try another cortisone injection today. I injected the carpometacarpal joint at the base of the left thumb today with 1.0 cc lidocaine and 1.0 cc Kenalog for osteoarthritis at the carpometacarpal joint at the base of the left thumb. I gave Melo new Branson Thumb Spica Splint today for the left thumb carpometacarpal joint osteoarthritis. I showed Juventino how to apply the splint. I showed him that there were both flexible and rigid metal strips inside the splint, and he may add or remove the metal strips as desired for comfort and function. The purpose of the splint is to provide comfort, support, and protection over the next 6 weeks, and beyond as needed. The splint should improve function by immobilizing the carpometacarpal joint at the base of the left thumb, minimizing bone on bone inflammation, thereby reducing pain and allowing for increased and improved use of the left thumb and hand. Juventino will use the splint when he is experiencing pain in the left thumb or hand, or when he is going to be participating in an activity that Juventino expects to cause pain. The splint is provided as a permanent issue. impression We also discussed tr eatment options for the right thumb carpometacarpal joint osteoarthritis. We decided to try another cortisone injection today on the right side as well. I injected the carpometacarpal joint at the base of the right thumb today with 1.0 cc lidocaine and 1.0 cc Kenalog for osteoarthritis at the carpometacarpal joint at the base of the right thumb. I also gave Melo Branson Thumb Spica Splint today for the right thumb carpometacarpal joint osteoarthritis. I showed Juventino how to apply the splint. I showed him that there were both flexible and rigid metal strips inside the splint, and he may add or remove the metal strips as desired for comfort and function. The purpose of the splint is to provide comfort, support, and protection over the next 6 weeks, and beyond as needed. The splint should improve function by immobilizing the carpometacarpal joint at the base of the right thumb, minimizing bone on bone inflammation, thereby reducing pain and allowing for increased and improved use of the right thumb and hand. Juventino will use the splint when he is experiencing pain in the right thumb or hand, or when he is going to be participating in an activity that Juventino expects to cause pain. The splint is provided as a permanent issue. Juventino may advance his activities as tolerated. He may follow up as needed. Juventino may also call with any questions or concerns. Patient Care Teams Name Effective Dates (start - stop) Status Members No Information
--- OUTSIDE RECORDS SUMMARY | 2025-02-23 04:00 | XMS_ITS ---
Author Organization [facility] Address [address] [place] [address] Care Team Providers Care License Registration Examiner Name Role Phone Elizabeth Kelly Primary Care Provider Danica Garcia [phone] REASON FOR VISIT Rituxan 1000mg dose. 2 vials. Du Encounters Encounter Location Date Provider Diagnosis [facility] [address] [place] [address] 02/23/2025 Danica Chung Plan Of Treatment Next Appt Details Provider Name:Danica Chung, 08/10 10:30:00 AM, [address], [place], [address], Provider Name:Danica Chung, 08/24 10:30:00 AM, [address], [place], [address], Progress Notes * Juventino AKINSDOB:1955 ( 69 yo M)Acc No.[id number]:02/23/2025 Patient: Juventino ZHAO Appointment Provider: Tutu CHUNG MD :1955 A ge:69 Y S ex:Male Date:02/23/2025 Address:[address] [place] [address] Pcp:Elizabeth Kelly Subjective: * Chief Complaints: * 1 . Rituxan 1000mg dose. 2 vials. Du. * Medical History: Objective: * Vitals: Assessment: Plan: * Treatment: * Billing Information: * Visit Code: * Procedure Codes: * Electronic signature of Danica Chung MD on 07/06/2025 at 12:43 AM DUST COLLECTOR OPERATOR Sign off status: Pending * Appointment Provider: Tutu CHUNG MD Date: 0 02/23/2025 Generated for Helen persaud/Urban/Nilam on: 09/05/2024 12:43 AM DUST COLLECTOR OPERATOR
--- OUTSIDE RECORDS SUMMARY | 2025-02-23 06:00 | XMS_ITS ---
Author Organization [facility] Address [address] [facility] [address] [place] [address] Care Team Providers Care Radio Sales Account Executive Name Role Phone Elizabeth Kelly Primary Care Provider Danica Garcia [phone] REASON FOR VISIT infusion pt Encounters Encounter Location Date Provider Diagnosis [facility] [address] [facility] [address] [place] [address] 02/23/2025 Danica Chung Plan Of Treatment Next Appt Details Provider Name:Danica Chung, 08/10 10:30:00 AM, [address] [facility] [address], [place], [address], Provider Name:Danica Chung, 08/24 10:30:00 AM, [address] [facility] [address], [place], [address], Progress Notes * Juventino AKINSDOB:1955 ( 69 yo M)Acc No.[id number]:02/23/2025 Progress Notes Patient: Juventino ZHAO Appointment Provider: Tutu CHUNG MD :1955 A ge:69 Y S ex:Male Date:02/23/2025 Address:[address] [place], [place] [phone] Pcp:Elizabeth Kelly Subjective: * Chief Complaints: * 1 . Infusion pt. * Medical History: Objective: * Vitals: Assessment: Plan: * Treatment: * Billing Information: * Visit Code: * Procedure Codes: * Electronic signature of Danica Chung MD on 07/06/2025 at 12:43 AM STULL INSTALLER Sign off status: Pending * Appointment Provider: Tutu CHUNG MD Date: 0 02/23/2025 Generated for Helen persaud/Urban/Nilam on: 09/05/2024 12:43 AM STULL INSTALLER
--- OUTSIDE RECORDS SUMMARY | 2025-03-08 04:40 | XMS_ITS ---
Author Organization [facility] Address [address] [place] [address] Care Team Providers Care Concrete Pipe Machine Operator Name Role Phone Elizabeth Kelly Primary Care Provider Zoraida Flowers [phone] REASON FOR VISIT b/l plantar warts Encounters Encounter Location Date Provider Diagnosis [facility] [address] [address] 03/08/2025 Zoraida Abraham Plan Of Treatment No Information Progress Notes * Juventino AKINS FDOB:1955 (69 yo M)Acc No.[id number]:03/08/2025 Progress Notes Patient: Lin lopez Juventino Emmanuelle Provider: Yin Abraham DPM :1955 A ge:69 Y S ex:Male Date:03/08/2025 Address:[address] [place], [place] [phone] Pcp:Elizabeth Kelly Subjective: * Chief Complaints: * B /l plantar warts * Electronic signature of Alina Abraham DPM on 07/06/2025 at 12:44 AM PROCUREMENT CLERK Sign off status: Pending * Provider: Yin Abraham DPM Date: 0 03/08/2025 Generated for Printi ng/Faxing/eTransmitting on: 1 09/05/2024 12:44 AM PROCUREMENT CLERK
--- OUTSIDE RECORDS SUMMARY | 2025-04-12 04:40 | XMS_ITS ---
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 At the last visit lesion was trimmed and he was prescribed Imiquimod cream. Today patient reports MA assisting with visit: HPI/Rooming: Terrie Chart Prep Terrie Examination Category Sub-Category Detail Notes Category Not es General Examination Mental status: Cooperative, Oriented to person, place and time, Mood and affect: normal, Judgement and intellect: normal with appropriate response to questions Shoes today: XXXXXX Exam unchanged from prior visit: with no significant changes in appearance or condition of feet, excluding the following findings noted on exam today: The wart on the right sub-first MPJ has much less hyperkeratotic tissue present. The lesion appears smaller with much less pinpoint bleeding noted. There is a small open skin fissure noted medially with no signs of infection. All other warts appear resolved. Constitutional / Appearance: No acute di stress , Well nourished, Appropriate personal hygiene Progress Notes * Juventino AKINS FDOB:1955 (69 yo M)Acc No.[id number]:04/12/2025 Progress Notes Patient: Juventino Brown Provider: Yin Abraham DPM :1955 A ge:69 Y S ex:Male Date:04/12/2025 Address:[address] [place], [place] [id number] Pcp:Elizabeth Kelly Subjective: * Chief Complaints: * P lantar wart * HPI: M Herbert assisting with visit:: Chart Prep Rigo gates. HPI/Rooming: Rigo purdy reason for visit:: Follow-up: [age] y/o male RTO for follow up plantar wart right foot. At the last visit lesion was trimmed and he was prescribed Imiquimod cream. Today patient reports. 2 nd concern today:: Patient also RTO for fissured skin. He was instructed to continue applying medihoney and bandage along the area. Today patient reports. Objective: * Examination: G eneral Examination: Constitutional / Appearance: N o acute distress , Well nourished, Appropriate personal hygiene. Mental status: C ooperative, Oriented to person, place and time, Mood and affect: normal, Judgement and intellect: normal with appropriate response to questions. Shoes today: X XXXXX. Exam unchanged from prior visit: w ith no significant changes in appearance or condition of feet, excluding the following findings noted on exam today: The wart on the right sub-first MPJ has much less hyperkeratotic tissue present. The lesion appears smaller with much less pinpoint bleeding noted. There is a small open skin fissure noted medially with no signs of infection. All other warts appear resolved. . Assessment: * Assessment: 1. P lantar wart - B07.0 (Primary) 2 . R ight foot pain - M79.671 ? 3 . 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
--- OUTSIDE RECORDS SUMMARY | 2025-05-18 04:15 | XMS_ITS ---
Author Organization [facility] Address [address] [facility] [address] [place] [address] Care Team Providers Care Data Warehousing Manager Name Role Phone Elizabeth Kelly Primary Care Provider Danica Garcia [phone] REASON FOR VISIT 3 month f/u RA-came in a week early Encounters Encounter Location Date Provider Diagnosis [facility] [address] [facility] [address] [place] [address] 05/18/2025 Danica Chung Plan Of Treatment Next Appt Details Provider Name:Danica Chung, 08/10 10:30:00 AM, [address] [facility] [address], [place], [address], Provider Name:Danica Chung, 08/24 10:30:00 AM, [address] [facility] [address], [place], [address], Progress Notes * Juventino AKINSDOB:1955 ( 69 yo M)Acc No.[id number]:05/18/2025 Progress Notes Patient: Juventino ZHAO Appointment Provider: Tutu CHUNG MD :1955 A ge:69 Y S ex:Male Date:05/18/2025 Address:[address] [place] [address] Pcp:Elizabeth Kelly Subjective: * Chief Complaints: * 1 . 3 month f/u RA-came in a week early. * Medical History: Objective: * Vitals: Assessment: Plan: * Treatment: * Billing Information: * Visit Code: * Procedure Codes: * Electronic signature of Danica Chung MD on 07/06/2025 at 12:44 AM RUBBER VULCANIZING MACHINE OPERATOR Sign off status: Pending * Appointment Provider: Tutu CHUGN MD Date: 0 05/18/2025 Generated for Helen persaud/Urban/Nilam on: 1 09/05/2024 12:44 AM RUBBER VULCANIZING MACHINE OPERATOR
[2025-05-21 10:43] VITALS: BMI 28.3
[2025-06-30 15:08] VITALS: BMI 28.3
--- NOTE | 2025-06-30 15:32 | PC.NURSE ---
Spoke with patient regarding medication xarelto. Patient verbalizes understanding that the last dose is to be taken on 07/02/25 and the Endoscopist will instruct them when to restart after the procedure.
--- OUTSIDE RECORDS SUMMARY | 2025-07-06 00:43 | XMS_ITS | Encounter Summary ---
Author Organization [facility] Facility Care Team Providers Care Jerker Name Role Phone Jean Raygoza MD Primary Care Provider [phone] Elizabeth Kelly MD Primary Care Provider [phone]- [phone] Macho Harrison MD Unavailable [phone] Colton Portillo MD Unavailable [phone] Gogo Garcia LPN Unavailable [phone] Encounter Details Date Type Department Care Team (Latest Contact Info) Description 11/14/2016 Orders Only [facility] Provider, MD Dwight [address] [place] [address] Social History Tobacco Use Types Packs/Day Years Used Date Smoking Tobacco: Former Comments:Smoking History Pac ks/day: 2 Packs Alcohol Use Standard Drinks/Week Comments Yes 0 (1 standard drink = 0.6 oz pur e alcohol) Sex and Gender Information Value Date Recorded Sex Assigned at Not on file Legal Sex Male 1:59 AM DIRECTOR OF GOLF Gender Identity Not on file Sexual Orientation [...] documented as of this encounter Care Teams Jerker Relationship Specialty Start Date End Date Jean Raygoza MD PCP - General 01/04/17 04/05/20 Elizabeth Kelly MD PCP - General Internal Medicine 04/06/20 Macho Harrison MD [address] [facility] [address] [place], [place] [id number] Surgeon Vascular Surgery 05/08/22 Colton Portillo MD [address] [facility] [address] [place] [address] Consulting Physician Cardiovascular Disease 06/26/22 Gogo Garcia, DUNGEON MASTER [address] [facility] [address] [place] [address] Blending Machine Operator 03/10/25 03/10/25 documented as of this encounter
--- OUTSIDE RECORDS SUMMARY | 2025-07-06 00:43 | XMS_ITS | Encounter Summary ---
Author Organization [facility] Facility Care Team Providers Care Pick Up Attendant Name Role Phone Jean Raygoza MD Primary Care Provider [phone] Elizabeth Kelly MD Primary Care Provider [phone]- [phone] Macho Harrison MD Unavailable [phone] Colton Portillo MD Unavailable [phone] Gogo Garcia LPN Unavailable [phone] Encounter Details Date Type Department Care Team (Latest Contact Info) Description 10/24/2016 Orders Only [facility] Provider, MD Dwgiht [address] [place] [address] Social History Tobacco Use Types Packs/Day Years Used Date Smoking Tobacco: Former Comments:Smoking History Pac ks/day: 2 Packs Alcohol Use Standard Drinks/Week Comments Yes 0 (1 standard drink = 0.6 oz pur e alcohol) Sex and Gender Information Value Date Recorded Sex Assigned at Not on file Legal Sex Male 1:59 AM SENIOR DEVOPS ENGINEER Gender Identity Not on file Sexual Orientation Not on file documented as of this encounter Plan of Treatment Not on file documented as of this encounter Procedures Procedure Name Priority Date/Time Associated Diagnosis Comments PROCEDURE - RESULT 10/24/2016 12 :00 AM SENIOR DEVOPS ENGINEER documented in this encounter Results * PROCEDURE - RESULT (10/24/2016 12:00 AM SENIOR DEVOPS ENGINEER) Narrative 10/24/2016 12:00 AM SENIOR DEVOPS ENGINEER Ordered by an unspecified provider. us Historical [...] documented as of this encounter Care Teams Pick Up Attendant Relationship Specialty Start Date End Date Jean Raygoza MD PCP - General 01/04/17 04/05/20 Elizabeth Kelly MD PCP - General Internal Medicine 04/06/20 Macho Harrison MD [address] [facility] [address] [place] [address] Surgeon Vascular Surgery 05/08/22 Colton Portillo MD [address] [facility] [address] [place] [address] Consulting Physician Cardiovascular Disease 06/26/22 Gogo Garcia, SENIOR COMPENSATION ANALYST [address] [facility] [address] [place] [address] American Board Certified Orthotist 03/10/25 03/10/25 documented as of this encounter
--- OUTSIDE RECORDS SUMMARY | 2025-07-06 00:43 | XMS_ITS | Clinical Summary ---
Author Organization [facility] Address [address] [address] Phone Care Team Providers Care Professor Of Astronomy Name Role Phone Fox Leo MD Primary Care Provider [phone] Twin Bowen DO Unavailable [phone] Social History Tobacco Use Types Packs/Day Years Used Date Smoking Tobacco: Never Assessed Sex and Gender Information Value Date Recorded Sex Assigned at Not on file Legal Sex Male 9:40 AM CDT Gender Identity Not on file Sexual Orientation Not on file Plan of Treatment Health Maintenance Due Date Last Done Comments TdaP Immunization 1955 Cologuard 2001 Colonoscopy 2001 Colorectal Cancer Screening 2001 Immunochemical Fecal Occult Blood 2001 Pneumococcal Immunization (5 0+ years) (1 of 1 - PCV) 2006 Zoster Immunization (1 of 2) 2006 Influenza Immunization (#1) 2025 SARS-COV-2 Immunization ( - season) 2025 Respiratory Syncytial Virus (RSV) Immunization (Adult) (1 - 1-dose 75+ series) 2031 Hepatitis C Virus (HCV) Screening Completed 016 Hepatitis B Immunization Aged Out No longer eligible based on patient's age to complete this topic Human Papillomavirus (HPV) Immunization Aged Out No longer eligible b ased [...] Most Recently Relevant to Health Maintenance Insurance [employer] [place] Care Teams Professor Of Astronomy Relationship Specialty Start Date End Date Fox Leo MD PCP - General Internal Medicine 02/14/16 Twin Bowen DO Gastroenterology 02/14/16
--- OUTSIDE RECORDS SUMMARY | 2025-07-06 00:43 | XMS_ITS | Encounter Summary ---
Author Organization [facility] Address [address] [place] [address] Phone Care Team Providers Care Pneumatic Drum Sander Name Role Phone Jean Raygoza MD Primary Care Provider [phone] Elizabeth Kelly MD Primary Care Provider [phone] Macho Harrison MD Unavailable [phone] Colton Portillo MD Unavailable [phone] Gogo Garcia LPN Unavailable [phone] Encounter Details Date Type Department Care Team (Late st Contact Info) Description 10/18/2017 Orders Only [facility] ProviderDwight MD [address] [place] [address] Social History Tobacco Use Types Packs/Day Years Used Date Smoking Tobacco: Former Smokeless Tobacco: Never Comments:Smoking History Pac ks/day: 2 Packs Alcohol Use Standard Drinks/Week Comments Yes 0 (1 standard drink = 0.6 oz pur e alcohol) Sex and Gender Information Value Date Recorded Sex Assigned at Not on file Legal Sex Male 1:59 AM ENGINEERING AND SCIENTIFIC PROGRAMMER Gender Identity Not on file Sexual Orientation Not on file documented as of this encounter Plan of Treatment Not on file documented as of this encounter Procedures Procedure Name Priority Date/Time Associated Diagnosis Comments DISCHARGE LABORATORY CUMULATIVE REPORT 10/18/2017 12:00 AM ENGINEERING AND SCIENTIFIC PROGRAMMER documented in this encounter Results * DISCHARGE LABORATORY CUMULATIVE REPORT (10/18/2017 12:00 AM ENGINEERING AND SCIENTIFIC PROGRAMMER) Narrative 10/18/2017 12:00 AM ENGINEERING AND SCIENTIFIC PROGRAMMER Ordered by an unspecified provider. us Historical [...] documented as of this encounter Care Teams Pneumatic Drum Sander Relationship Specialty Start Date End Date Jean Raygoza MD PCP - General 01/04/17 04/05/20 Elizabeth Kelly MD PCP - General Internal Medicine 04/06/20 Macho Harrison MD [address] [facility] [address] [place] [address] Surgeon Vascular Surgery 05/08/22 Colton Portillo MD [address] [facility] [address] [place] [address] Consulting Physician Cardiovascular Disease 06/26/22 Gogo Garcia, [place] [address] [place] [address] [address] [place] [address] Camp Director 03/10/25 03/10/25 documented as of this encounter
--- OUTSIDE RECORDS SUMMARY | 2025-07-06 00:43 | XMS_ITS | Encounter Summary ---
Author Organization [facility] Address [address] [place] [address] Phone Care Team Providers Care Multimedia Services Manager Name Role Phone Jean Raygoza MD Primary Care Provider [phone] Elizabeth Kelly MD Primary Care Provider [phone] Macho Harrison MD Unavailable [phone] Colton Portillo MD Unavailable [phone] Gogo Garcia LPN Unavailable [phone] Encounter Details Date Type Department Care Team (Late st Contact Info) Description 01/02/2018 Orders Only [facility] ProviderDwight MD [address] [place] [address] Social History Tobacco Use Types Packs/Day Years Used Date Smoking Tobacco: Former Smokeless Tobacco: Never Comments:Smoking History Pac ks/day: 2 Packs Alcohol Use Standard Drinks/Week Comments Yes 0 (1 standard drink = 0.6 oz pur e alcohol) Sex and Gender Information Value Date Recorded Sex Assigned at Not on file Legal Sex Male 1:59 AM PROPERTY UTILIZATION MANAGER Gender Identity Not on file Sexual Orientation [...] documented as of this encounter Care Teams Multimedia Services Manager Relationship Specialty Start Date End Date Jean Raygoza MD PCP - General 01/04/17 04/05/20 Elizabeth Kelly MD PCP - General Internal Medicine 04/06/20 Macho Harrison MD [address] [place] [address] Surgeon Vascular Surgery 05/08/22 Colton Portillo MD [address] [place] [address] Consulting Physician Cardiovascular Disease 06/26/22 Gogo Garcia, WAX BLEACHER [address] [place] [address] [address] [place] [address] Claims Vice President 03/10/25 03/10/25 documented as of this encounter
--- OUTSIDE RECORDS SUMMARY | 2025-07-06 00:44 | XMS_ITS | Encounter Summary ---
Author Organization [facility] Facility Care Team Providers Care Structural Fitter Name Role Phone Jean Raygoza MD Primary Care Provider [phone] Elizabeth Kelly MD Primary Care Provider [phone] Macho Harrison MD Unavailable [phone] Colton Portillo MD Unavailable [phone] Gogo Garcia LPN Unavailable [phone] Encounter Details Date Type Department Care Team (Latest Contact Info) Description 10/12/2016 Orders Only [facility] Provider, MD Dwight [address] [place] [address] Social History Tobacco Use Types Packs/Day Years Used Date Smoking Tobacco: Former Comments:Smoking History Pac ks/day: 2 Packs Alcohol Use Standard Drinks/Week Comments Yes 0 (1 standard drink = 0.6 oz pur e alcohol) Sex and Gender Information Value Date Recorded Sex Assigned at Not on file Legal Sex Male 1:59 AM FINANCIAL PROFESSIONAL Gender Identity Not on file Sexual Orientation Not on file documented as of this encounter Plan of Treatment Not on file documented as of this encounter Procedures Procedure Name Priority Date/Time Associated Diagnosis Comments PROCEDURE - RESULT 10/12/2016 12 :00 AM FINANCIAL PROFESSIONAL documented in this encounter Results * PROCEDURE - RESULT (10/12/2016 12:00 AM FINANCIAL PROFESSIONAL) Narrative 10/12/2016 12:00 AM FINANCIAL PROFESSIONAL Ordered by an unspecified provider. us Historical [...] documented as of this encounter Care Teams Structural Fitter Relationship Specialty Start Date End Date Jean Raygoza MD PCP - General 01/04/17 04/05/20 Elizabeth Kelly MD PCP - General Internal Medicine 04/06/20 Macho Harrison MD [address] [facility] [address] [place] [address] Surgeon Vascular Surgery 05/08/22 Colton Portillo MD [address] [facility] [address] [place] [address] Consulting Physician Cardiovascular Disease 06/26/22 Gogo Garcia, MANUFACTURING PLANNER [address] [facility] [address] [place] [address] Food And Nutrition Supervisor 03/10/25 03/10/25 documented as of this encounter
--- OUTSIDE RECORDS SUMMARY | 2025-07-06 00:44 | XMS_ITS | Patient Health Record ---
Author Organization 1 OF Anny lam [facility] Address [address] [place] [address] Care Team Providers [employer] Name Role Phone Leticia Elizabeth Primary Care Provider Zoraida Flowers Unavailable [phone] Allergies Allergen (clinical drug ingredient) Drug/Non Drug Allergy documented on EMR Reaction Allergy Type Onset Date Status Adhesive Unknown Allergy Active Reason For Referral No Information Medications Medication SIG (Take, Route, Frequency, Duration) Notes Start Date End Date Status Vitamin C Active Quercetin Active Methotrexate Active Aspirin 81 Active Vitamin D Active Medihoney Wound/Burn Dressing - Gel Apply to wound bed daily Topical once daily; Duration: 30 days 02/01/2025 Active predniSONE Active Folic Acid Active Rituxan Active Imiquimod 5 % Cream 1 application at bed time, leave on for 8 hours then wash off Externally Three times a Week; Duration: 30 days 03/15/2025 Active Zinc Active Xarelto Active Social History Tobacco Use: Social History Observation Description Date Details (start date - stop date) Former Smoker NA - 03/02/2005 Social History Tobacco Use: Social Info Question Answer Notes Tobacco Control (Standard) Tobacco use: Former smoker When did you stop smoking? 03/02/2005 Additional Findings: Tobacco non-user Ex-very he jimena cigarette smoker (40+/day) Additional Details Category Social Info Options Details Miscellaneous: Exercise: Moderate Occupation: Retired Living with: spouse Drugs/Alcohol: Do you smoke marijuana? Ad mits Alcohol use: Daily, Approxima te drinks per week: 4 Recreational drugs Marijuana, da leif Problems Problem Type SNOMED Code ICD Code Onset Dates Problem Status W/U Status Risk Notes Problem Polyneuropathy (35793799) Polyneuropathy, unspecified (G62.9) Active confirmed Problem Non-pressure chronic ulcer of other part of right foot limited to breakdown of skin (L97.511) Active confirmed Problem Plantar wart (43260837) Plantar wart (B07.0) Active confirmed Problem Ulcer of left foot (disorder) (257903211) Ulcer of left foot, limited to breakdown of skin (L97.521) Active confirmed Vital Signs Height 74 in 03/15/2025 Weight 220 lbs 03/15/2025 BMI 28.24 kg/m2 03/15/2025 Encounters Encounter Location Date Provider Diagnosis 1 OF Anny Mancuso [place] [address] [address] 07/13/2024 Zoraida Abraham Plantar wart B07.0 ; Right foot pain M79.671 ; Left foot pain M79.672 ; Polyneuropathy, unspecified G62.9 ; Onychogryphosis L60.2 and Ingrown toenail L60.0 1 OF Anny Mancuso [place] [address] [address] 07/27/2024 Zoraida Abraham Plantar wart B07.0 ; Right foot pain M79.671 and Left foot pain M79.672 1 OF Anny Mancuso [place] [address] [address] 09/10/2024 Zoraida Abraham Plantar wart B07.0 ; Right foot pain M79.671 and Left foot pain M79.672 1 OF Anny Mancuso [place] [address] [place] [address] [place] [address] 09/24/2024 Zoraida Abraham Plantar wart B07.0 ; Right foot pain M79.671 and Left foot pain M79.672 1 OF Anny Mancuso [place] [address] [place] [address] [place] [address] 10/05/2024 Zoraida Abraham Plantar wart B07.0 ; Right foot pain M79.671 and Left foot pain M79.672 1 OF Anny Mancuso [place] [address] [address] 10/26/2024 Zoraida Abraham Plantar wart B07.0 ; Right foot pain M79.671 and Left foot pain M79.672 1 OF Anny Mancuso [place] [address] [address] 11/09/2024 Zoraida Abraham Plantar wart B07.0 ; Left foot pain M79.672 and Right foot pain M79.671 1 OF Anny Mancuso [place] [address] [address] 11/30/2024 Zoraida Abraham Plantar wart B07.0 ; Left foot pain M79.672 and Right foot pain M79.671 1 OF Anny Mancuso [place] [address] [address] 12/21/2024 Zoraida Abraham Plantar wart B07.0 ; Left foot pain M79.672 and Right foot pain M79.671 1 OF Anny Mancuso [place] [address] [address] 01/11/2025 Zoraida Abraham Plantar wart B07.0 ; Left foot pain M79.672 and Right foot pain M79.671 1 OF Anny Mancuso [place] [address] [address] 02/01/2025 Zoraida Abraham Plantar wart B07.0 ; Left foot pain M79.672 ; Right foot pain M79.671 ; Ulcer of left foot, limited to breakdown of skin L97.521 and Non-pressure chronic ulcer of other part of right foot limited to breakdown of skin L97.511 1 OF Anny Mancuso [place] [address] [address] 02/15/2025 Zoraida Abraham Plantar wart B07.0 ; Left foot pain M79.672 ; Right foot pain M79.671 ; Ulcer of left foot, limited to breakdown of skin L97.521 and Non-pressure chronic ulcer of other part of right foot limited to breakdown of skin L97.511 1 OF Anny Mancuso [place] [address] [address] 03/15/2025 Zoraida Abraham Plantar wart B07.0 ; Right foot pain M79.671 and Non-pressure chronic ulcer of other part of right foot limited to breakdown of skin L97.511 1 OF Anny Mancuso [facility] [address] [place] [address] 07/07/2024 Zoraida Abraham 1 OF Anny Frank [facility] [address] [address] 10/05/2024 Zoraida Abraham Assessments Encounter Date Diagnosis (ICD Code) Assessment Notes Treatment Notes Treatment Clinical Notes Section Notes 07/13/2024 Plantar wart (ICD-10 - B07.0) Evaluation [...] 07/13/2024 Right foot pain (ICD-10 - M79.671) 07/27/2024 Plantar wart (ICD-10 - B07.0) Evaluation [...] advised that he could consider seeing a matrix supervisor for a second opinion. He can call [...] anti-viral cream. This will be ordered from [facility]'s pharmacy. He can call with any issues [...] options. The lesions were trimmed. I recommended that he discontinue use of the antiviral medication on the left foot. He is to apply Medihoney and a bandage until the skin is healed. He was advised to apply Medihoney and a bandage to the skin fissure on the right foot. He can continue application of the antiviral medication on the right wart once the skin fissure is healed. 03/15/2025 Plantar wart (ICD-10 - B07.0) Evaluation today included a review of medical history, review of systems, discussion of exam findings, and review of diagnoses and treatment options. The right foot lesion was trimmed. He was advised to try the imiquimod cream to see if this does not irritate his skin as much. He was prescribed this today. He can also apply this on the other previously resolved warts. He can continue Medihoney and a bandage along the skin fissure until it is healed. He can call with any issues prior to his next visit. 03/15/2025 Right foot pain (ICD-10 - M79.671) 02/15/2025 Left foot pain (ICD-10 - M79.672) 12/21/2024 Left foot pain (ICD-10 - M79.672) 03/15/2025 Non-pressure chronic ulcer of other part of right foot limited to breakdown of skin (ICD-10 - L97.511) 02/01/2025 Right foot pain (ICD-10 - M79.671) 01/11/2025 Left foot pain (ICD-10 - M79.672) 11/30/2024 Right foot pain (ICD-10 - M79.671) 11/09/2024 Right foot pain (ICD-10 - M79.671) 10/26/2024 Right foot pain (ICD-10 - M79.671) 10/05/2024 Right foot pain (ICD-10 - M79.671) 09/24/2024 Right foot pain (ICD-10 - M79.671) 09/10/2024 Right foot pain (ICD-10 - M79.671) 07/27/2024 Right foot pain (ICD-10 - M79.671) 07/13/2024 Left foot pain (ICD-10 - M79.672) 07/13/2024 Polyneuropathy, unspecified (ICD-10 - G62.9) 07/27/2024 Left foot pain (ICD-10 - M79.672) [...] to breakdown of skin (ICD-10 - L97.511) 07/13/2024 Onychogryphosis (ICD-10 - L60.2) Considering the associated comorbidities and physical exam findings today, this patient is at substantial risk of developing serious foot complications in the absence of regular and professional palliative foot care. 07/13/2024 Ingrown toenail (ICD-10 - L60.0) 02/15/2025 Non-pressure chronic ulcer of other part of right foot limited to breakdown of skin (ICD-10 - L97.511) Plan Of Treatment No Information Insurance Providers Payer Name Payer Address Payer Phone Subscriber Number Group Number Insured Name Patient Relationship to Insured Coverage Start Date Coverage End Date Medicare [address] [facility] [place] [id number] Juventino Chappell Self - patient is the insured [id number] [place] [address] [id number] Juventino Chappell Self - patient is the insured Medical (General) History Medical History History ICD Code arthritis, DVT, cancer, afsaneh ia, high cholesterol, neuropathy of feet, Pneumonia, pulmonary embolism, rheumatoid arthritis, lung collapse Surgical History Surgery Date(Month/Year) aortic aneurysm repair
--- OUTSIDE RECORDS SUMMARY | 2025-07-06 00:44 | XMS_ITS | Clinical Summary ---
Author Organization [facility] Address [address] [place] [address] Care Team Providers Care Homicide Investigator Name Role Phone Leticia Elizabeth Blood MD Primary Care Provider [phone] Macho Harrison MD Unavailable [phone] Colton Portillo MD Unavailable [phone] Allergies Active Allergy Reactions Criticality Noted Date Comments Adhesive Rash Medium 07/06/2022 (Can tolerate Medipore) Medications multivitamin tablet tablet take 1 tablet by oral route every day with food 0 0 3 Active ascorbic acid (VITAMIN C) 1,000 mg tablet Take 1 tablet (1,000 mg total) by mouth daily Active zinc 50 mg tablet Take 25 mg by mouth daily Active docusate sodium (COLACE) 100 mg capsuleIndicati ons:constipatio n Take 1 capsule (100 mg total) by mouth daily Active quercetin 500 mg capsule Take 500 mg by mouth daily 2 Active acetaminophen (TYLENOL) 500 mg tablet Take 2 tablets (1,000 mg total) by mouth every 6 (six) hours as needed for pain Active folic acid (FOLVITE) 1 mg tablet TAKE 1 TABLET BY MOUTH EVERY DAY 90 tablet 2 3 Active riTUXimab (RITUXAN) 10 mg/mL injection Infuse IV every 6 (six) months Active gel dressing (Solosite Wound Gel) gel Patient will need to topically apply wound gel to his left lower extremity wound once a day 30 mL 1 4 Active Additional Information Patient not taking.Reported on 06/08/2025 bismuth tribrom-petrola emy,wh (Xeroform) 5 X 9 bandage Apply 1 Application topically daily 5 each 1 4 Active traMADoL (ULTRAM) 50 mg tablet Take 1 tablet (50 mg total) by mouth every 6 (six) hours as needed for pain 30 tablet 4 Active traZODone (DESYREL) 150 mg tablet TAKE 1 TABLET BY MOUTH EVERY DAY AT NIGHT 90 tablet 2 5 Active albuterol HFA (PROVENTIL HFA,VENTOLIN HFA,PROAIR HFA) 90 mcg/actuation inhaler Inhale 2 puffs every 6 (six) hours as needed for wheezing Active aspirin 81 mg enteric coated tablet Take 1 tablet (81 mg total) by mouth daily Active cholecalciferol 25 mcg (1,000 unit) tablet Take 1 tablet (1,000 Units total) by mouth daily Active fluticasone propionate (FLONASE) 50 mcg/actuation nasal spray Administer 2 sprays into each nostril nightly as needed for rhinitis Active gabapentin (NEURONTIN) 400 mg capsule Take 1 capsule (400 mg total) by mouth nightly Active methotrexate 2.5 mg tablet Take 8 tablets (20 mg total) by mouth every 7 days Fridays Active predniSONE (DELTASONE) 2.5 mg tabletIndicatio ns:Rheumatoid Arthritis Take 1 tablet (2.5 mg) by mouth daily Total 7.5 mg daily Active predniSONE (DELTASONE) 5 mg tabletIndicatio ns:Rheumatoid Arthritis Take 1 tablet (5 mg) by mouth daily Total 7.5 mg daily Active umeclidinium (INCRUSE ELLIPTA) 62.5 mcg/actuation blister with device Inhale 1 puff (62.5 mcg total) daily Active methocarbamoL (ROBAXIN) 500 mg tablet Take 1 tablet (500 mg total) by mouth 3 (three) times a day as needed for muscle spasms 30 tablet 5 Active senna-docusate (PERICOLACE) 8.6-50 mg Take 1 tablet by mouth 2 (two) times a day as needed for constipation 30 tablet 1 5 Active imiquimod (ALDARA) 5 % cream APPLY EXTERNALLY TO AFFECTED AREA AT BEDTIME,LEAVE ON FOR 8 HOURS THEN WASH OFF 3 TIMES A WEEK Active rivaroxaban (XARELTO) 20 mg tablet Take 1 tablet (20 mg total) by mouth daily with dinner Active fluticasone furoate-vilante roL (BREO ELLIPTA) 100-25 mcg/dose diskus inhaler Inhale 1 puff daily Rinse mouth with water after use. Do not swallow. 30 each 1 5 Active Active Problems Problem Noted Date Diagnosed Date Spontaneous pneumothorax 04/12/2025 History of pneumothorax 03/29/2025 Hyperinflation of lungs 02/02/2025 Chronic skin ulcer [...] 07/13/2022 Assessment & Plan (10/08/2024 10:16 AM PARKING ENFORCEMENT TECHNICIAN): Status post EVAR. Duplex shows stable stent graft repair decrease aneurysm sac size with no endoleak. Follow up 1 year with duplex. Assessment & Plan (09/20/2023 12:50 PM PARKING ENFORCEMENT TECHNICIAN): Impression: Patient is status post endovascular repair of a 5.3 cm infrarenal abdominal aortic aneurysms. CT of abdomen pelvis reveals a patent endograft with a decreasing gulkana aneurysms sac now measuring 3.7 cm with no endoleak seen. Plan: Continue ongoing risk factor modifications. -continue dual antiplatelet therapy of aspirin and Xarelto. -patient to follow-up in 1 year for re-evaluation with abdominal aortic duplex. 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 Avoid live-vaccines unless reviewed with tar heat exchanger cleaner first. Discussed that we strongly recommend the flu and covid vaccines but he continues to decline. He will talk to his PCP about getting his second pneumonia vaccine though Abdominal aortic aneurysm (AAA) without rupture 05/16/2022 Assessment & Plan (09/14/2022 1:51 PM PARKING ENFORCEMENT TECHNICIAN): Patient is status post AAA repair with PVR 07/13/2022 which was measuring 5.3 cm. States he is recovering well. Denies any concerns or complaints or claudication symptoms. Follow-up CTA shows the aneurysm is not measuring 5.1 cm with no endoleak. Discussed patient with Dr. Mary Harrison. Plan: Return in 1 year for routine surveillance with CTA. Assessment & Plan (08/01/2022 3:47 PM PARKING ENFORCEMENT TECHNICIAN): Impression: Patient is status post endovascular repair [...] Hyperlipidemia Assessment & Plan (10/08/2024 10:16 AM PARKING ENFORCEMENT TECHNICIAN): Hyperlipidemia chronic controlled. Continue pravastatin. Assessment & Plan (09/20/2023 12:50 PM PARKING ENFORCEMENT TECHNICIAN): Impression: Chronic stable. Plan: Continue pravastatin Assessment [...] have his routine blood work updated at [facility] and we can trial the addition [...] Encounters Date Type Department Care Team Description 06/08/2025 11:15 AM CDT Office Visit [facility] Pulmonology [address] [place] [address] [place] [phone] Kat Ruiz MD PRAVEEN (obstructive sleep apnea) (Primary Dx); Simple chronic bronchitis (HCC); Pulmonary air trapping; Thromboembolic disorder (HCC); Cigarette nicotine dependence in remission; Psychophysiological insomnia; History of pulmonary embolism; Multiple pulmonary nodules; History of pneumothorax; Hyperinflation of lungs; Rheumatoid arthritis involving multiple sites with positive rheumatoid factor (HCC) 06/03/2025 Telephone [facility] Pulmonology [address] [place] [address] [place] [phone] Jacqueline Tillman MA 05/11/2025 11:10 AM CDT Lab [place] [address] [place] [phone] 05/10/2025 1:30 PM CDT Office Visit [facility] [address] [place] [address] Latisha Vazquez, SUNI Post-operative state (Primary Dx) 05/06/2025 12:15 PM CDT - 05/06/2025 11:59 PM CDT Hospital Encounter [facility] MOB 1 DIAG IMG [address] [place] [address] Spontaneous pneumothorax Discharge Disposition: Discharge to home or self care 05/06/2025 Telephone [facility] [address] [place] [address] [address] [place] [phone] Jany Melchor CMA 05/06/2025 Orders Only [facility] [address] [place] [address] [address] [place] [phone] Jany Melchor, AMANDA Shortness of breath (Primary Dx) 04/27/2025 Telephone [facility] [address] [place] [address] [address] [place] [phone] Latisha Vazquez, SUNI Follow-Up Call 7 Days 04/19/2025 Telephone [facility] [address] [place] [address] [address] [place] [phone] Jany Melchor CMA 04/19/2025 Orders Only [facility] [address] [place] [address] [address] [place] [phone] Rashid Roberson MD Spontaneous pneumothorax (Primary Dx) 04/14/2025 7:30 AM CDT - 04/14/2025 10:05 AM CDT Surgery [address] [address] Rashid Roberson MD VIDEO-ASSISTED THORACIC SURGERY, PLEURODESIS 04/14/2025 7:25 AM CDT Anesthesia Event [address] [address] Zachary Pryor MD Ashby, Emily Rae, CRNA 04/12/2025 5:03 AM CDT - 04/18/2025 1:07 PM CDT Hospital Encounter [address] [address] Srinivasa Sinclair MD Sada, Kahmalia-Kalee Conceptia, MD Saturno Arias, Dany Jose, MD Petters, Ekanga Luca, MD Paruchuri, Tharun, MD Shortness of breath (Primary Dx); Spontaneous pneumothorax; Tension pneumothorax; History of pneumothorax Discharge Disposition: Discharge to home or self care 04/08/2025 11:15 AM CDT Orders Only [facility] Office Building 2 Wound Care [address] [facility] [address] [place] [address] from Last 3 Months Immunizations Immunization Administration [...] BASAL CELL CARCINOMA EXCISION 09/02/2022 - 09/01/2023 LUNG SURGERY 04/02/2025 - 05/02/2025 Right Medical History Medical History Date Comments Melanoma (HCC) 2019 removed Rheumatoid arthritis (HCC) takes methotrexate and prednisone Delayed emergence from general anesthesia Happens frequently Sleep apnea wears cpap night ly Hyperlipidemia DVT (deep venous thrombosis) 07/2015 bot h legs, PE 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 More than three times a week 03/07/2025 How often do you get togethe r with friends or relatives? More than three times a week 03/07/2025 How often do you attend chur ch or anabaptism services? Never 03/07/2025 Do you belong to any clubs o r organizations such as cheondoism groups, unions, fraternal or athletic groups, or school groups? No 03/07/2025 How often do you attend meet ings of the clubs or organizations you belong to? Never 03/07/2025 Are you , , di vorced, , never , or living with a partner? 03/07/2025 Overall Financial Resource Strain (CARDIA) Answe r Date Recorded How hard is it for you to pa y for the very basics like food, housing, medical care, and heating? Not very hard 03/07/2025 PHQ-2 Answer Date Recorded PHQ-2 Total Score (If total score is 3 or more points, staff should administer the PHQ-9) 0 11/07/2021 PRAPARE - Transportation Answer Date Re corded In the past 12 months, has l ack of transportation kept you from medical appointments or from getting medications? No 01/2025 In the past 12 months, has l ack of transportation kept you from meetings, work, or from getting things needed for daily living? No 03/07/2025 Housing Stability Vital Sign Answer [place] e Recorded In the last 12 months, was t here a time when you were not able to pay the mortgage or rent on time? No 03/07/2025 In the past 12 months, how m any times have you moved where you were living? 0 03/07/2025 At any time in the past 12 m [facility], were you homeless or living in a halfway (including now)? No 03/07/2025 Social Connection and Isolation Panel Answer Date Recorded Frequency of Communication with Friends and Fami ly Not on file 04/12/2025 Frequency of Social Gatherings with Friends and Family Not on file 04/12/2025 Attends Yazidism Services Not on file 04/12 Active Member of Clubs or Organizations Not on f ile 04/12/2025 How often do you attend meet ings of the clubs or organizations you belong to? Never 04/12/2025 Marital Status Not on file 04/12/2025 AUDIT-C Answer Date Recorded Frequency of Alcohol Consumption Not on file 05/10/2025 Q2: How many drinks containi ng alcohol do you have on a typical day when you are drinking? 5 or 6 Q3: How often do you have si x or more drinks on one occasion? Daily or almost daily 05/10/2025 Overall Financial Resource Strain (CARDIA) Answe r Date Recorded How hard is it for you to pa y for the very basics like food, housing, medical care, and heating? Not very hard 04/12/2025 Hunger Vital Sign Answer Date Recorded Within the past 12 months, y ou worried that your food would run out before you got the money to buy more. Never true 04/12/20 25 Within the past 12 months, t he food you bought just didn't last and you didn't have money to get more. Never true 04/12/2025 PRAPARE - Transportation Answer Date Re corded In the past 12 months, has l ack of transportation kept you from medical appointments or from getting medications? No 04/02 In the past 12 months, has l ack of transportation kept you from meetings, work, or from getting things needed for daily living? No 04/12/2025 Housing Stability Vital Sign Answer [place]o e Recorded In the last 12 months, was t here a time when you were not able to pay the mortgage or rent on time? No 04/12/2025 In the past 12 months, how m any times have you moved where you were living? 0 04/12/2025 At any time in the past 12 m [facility], were you homeless or living in a halfway (including now)? No 04/12/2025 [facility] Utilities Answer Date Recorded In the past 12 months has e electric, gas, oil, or water company threatened to shut off services in your home? No 04/12/2025 Personal Safety Answer Date Recorded Have you ever been in or are you currently in a harmful physical or emotional relationship or is someone making you feel afraid or unsafe? Denies 04/12/2025 Sex and Gender Information Value Date Recorded Sex Assigned at Not on file Legal Sex Male 1:59 AM PARKING ENFORCEMENT TECHNICIAN Gender Identity Not on file Sexual Orientation Not on file Last Filed Vital Signs Vital Sign Reading Time Taken Comments Blood Pressure 137/74 06/08/2025 11:11 AM CDT Pulse 65 06/08/2025 11:11 AM CDT Temperature 36.3 C (97.4 F) 06/08/2025 11:11 AM CDT Respiratory Rate 19 05/10/2025 1:35 PM CDT Oxygen Saturation 98% 06/08/2025 11: 11 AM CDT Inhaled Oxygen Concentration - - Weight 96.5 kg (212 lb 12.8 oz) 025 11:11 AM CDT Height 187 cm (6' 1.62) 06/08/2025 11: 11 AM CDT Body Mass Index 27.6 06/08/2025 11:11 AM CDT Plan of Treatment Health Maintenance Due Date Last Done Comments Colon Cancer Screening-Colonoscopy 1956 Prostate Cancer Screening-PSA 1956 Hepatitis B Screening 1974 Pneumococcal vaccine 65+ (2 of 2 - PCV) 09/01/2011 09/01/2010 Zoster Vaccine (1 of 2) 04/27/2016 03/02/2016, 01/05 Well Visit 65+ 2021 DTaP/Tdap/Td Vaccine (1 - Tdap) 12/13/2021 2 Depression Screening 11/07/2022 11/07/2021 Influenza Vaccine (#1) 2025 , 06/14/2020, 06/04/2019, Additional history exists Fall Risk Assessment 04/18/2026 04/18/2025 Abdominal Aortic Aneurysm (A AA) Screen Completed 09/23/2024, 01/23/2024, 09/19/2023, Additional history exists Hepatitis C Screening Completed 04/12/2025 , 06/29/2022, 12/29/2015, Additional history exists Medical Devices Implanted Type Area Test Tube Maker Device Identifier Shelf Expiration Date Model / Serial / Lot Luxul Wireless Angio-Seal Vip 6fr Closere Device [id number] - [id number] Implanted:Qty: 1 on 07/04/2022 by Haresh Solis MD at [facility] 01/30/2023 [id number] / / [id number] [employer] V[employer] Perclose 6fr Vascular Closure [id number] - [id number] Implanted:Qty: 4 on 07/13/2022 by Macho Harrison MD at [facility] [employer] [id number] / / [employer] Lancaster Excluder C3 23mm 14.5mm 19-21mm 12-13.5mm 12cm Sinusoidal [id number] - [id number] - [id number] Implanted:Qty: 1 on 07/13/2022 by Macho Harrison MD at [facility] N/A: Aorta [employer] [id number] 12/02/2024 [id number] / [id number] / [employer] Excluder 16mm 13.5-14.5mm 13.5cm Stent Abrasion Resistant [id number] - [id number] - [id number] Implanted:Qty: 1 on 07/13/2022 by Macho Harrison MD at [facility] [employer] [id number] 01/10/2025 [id number] / [id number] / [employer] Excluder 18mm 14.5-16.5mm 13.5cm Stent Abrasion Resistant [id number] - [id number] - [id number] Implanted:Qty: 1 on 07/13/2022 by Macho Harrison MD at [facility] [employer] [id number] 04/15/2025 [id number] / [id number] / Procedures Procedure Name Priority Date/Time Associated Diagnosis Comments EGFR Routine 05/11/2025 11:17 AM CDT DIFFERENTIAL AUTO Routine 05/11/2025 11: 17 AM CDT CBC WITH AUTO DIFFERENTIAL Routine 05/11/2025 11:17 AM CDT COMPREHENSIVE METABOLIC PANEL Routine 05/11/2025 11:17 AM CDT XR CHEST PA LATERAL 2 VIEWS Schedule Routine, Read Routine (OP Routine) 05/06/2025 12:38 PM CDT Spontaneous pneumothorax XR CHEST 1 VIEW IP Routine 04/18/2025 5:36 AM CDT EGFR Routine 04/18/2025 3:50 AM CDT DIFFERENTIAL AUTO Routine 04/18/2025 3:5 0 AM CDT CBC WITH AUTO DIFFERENTIAL Routine 04/18/2025 3:50 AM CDT BASIC METABOLIC PANEL Routine 04/18/2025 3:50 AM CDT XR CHEST 1 VIEW IP Routine 04/17/2025 4:58 AM CDT EGFR Routine 04/17/2025 2:10 AM CDT DIFFERENTIAL AUTO Routine 04/17/2025 2:1 0 AM CDT CBC WITH AUTO DIFFERENTIAL Routine 04/17/2025 2:10 AM CDT BASIC METABOLIC PANEL Routine 04/17/2025 2:10 AM CDT XR CHEST 1 VIEW IP Routine 04/16/2025 5:18 AM CDT EGFR Routine 04/16/2025 2:42 AM CDT DIFFERENTIAL AUTO Routine 04/16/2025 2:4 2 AM CDT CBC WITH AUTO DIFFERENTIAL Routine 04/16/2025 2:42 AM CDT BASIC METABOLIC PANEL Routine 04/16/2025 2:42 AM CDT XR CHEST 1 VIEW IP Routine 04/15/2025 5:53 AM CDT EGFR Routine 04/15/2025 2:41 AM CDT DIFFERENTIAL AUTO Routine 04/15/2025 2:4 1 AM CDT CBC WITH AUTO DIFFERENTIAL Routine 04/15/2025 2:41 AM CDT BASIC METABOLIC PANEL Routine 04/15/2025 2:41 AM CDT XR CHEST 1 VIEW ED Urgent/IP Urgent 04/14/2025 10:54 AM CDT XR CHEST 1 VIEW ED Urgent/IP Urgent 04/14/2025 9:14 AM CDT ID AN PROCEDURE PLACEHOLDER Routine 04/14/2025 8:06 AM CDT ID AN ELECTIVE ENDOTRACHEAL AIRWAY Routine 04/14/2025 8:06 AM CDT VIDEO-ASSISTED THORACIC SURGERY 04/14/2025 7:25 AM CDT Shortness of breath Spontaneous pneumothorax History of pneumothorax XR CHEST 1 VIEW IP Routine 04/14/2025 5:46 AM CDT EGFR Routine 04/14/2025 4:47 AM CDT DIFFERENTIAL AUTO Routine 04/14/2025 4:4 7 AM CDT ANTIBODY SCREEN Timed 04/14/2025 4:47 AM CDT ABO/RH Timed 04/14/2025 4:47 AM CDT TYPE AND SCREEN Timed 04/14/2025 4:47 AM CDT CBC WITH AUTO DIFFERENTIAL Routine 04/14/2025 4:47 AM CDT BASIC METABOLIC PANEL Routine 04/14/2025 4:47 AM CDT XR CHEST 1 VIEW IP Routine 04/13/2025 9:51 AM CDT EGFR Routine 04/13/2025 3:41 AM CDT DIFFERENTIAL AUTO Routine 04/13/2025 3:4 1 AM CDT PRO B-TYPE NATRIURETIC PEPTIDE Routine 04/13/2025 3:41 AM CDT CRP (ACUTE PHASE) Routine 04/13/2025 3:4 1 AM CDT BASIC METABOLIC PANEL Routine 04/13/2025 3:41 AM CDT CBC WITH AUTO DIFFERENTIAL Routine 04/13/2025 3:41 AM CDT ETHANOL Routine 04/12/2025 11:16 AM CDT TROPONIN T HIGH-SENSITIVITY 6-HOUR Timed 04/12/2025 11:16 AM CDT HIV 1/2 ANTIBODY PLUS P24 ANTIGEN Routine 04/12/2025 11:16 AM CDT HEPATITIS C ANTIBODY Routine 04/12/2025 11:16 AM CDT RT COMMUNICATION Routine 04/12/2025 9:38 AM CDT SEPSIS LACTATE WITH REFLEX Timed 04/12/2025 9:16 AM CDT TROPONIN T HIGH-SENSITIVITY 4-HR Timed 04/12/2025 9:16 AM CDT TROPONIN T HIGH-SENSITIVITY 2-HOUR Timed 04/12/2025 7:13 AM CDT POC BLOOD GAS AND CHEMISTRIES, VENOUS Routine 04/12/2025 7:06 AM CDT ED CHEST TUBE INSERTION Routine 04/12/2025 6:30 AM CDT XR CHEST 1 VIEW ED 04/12/2025 5:46 AM CDT EGFR STAT 04/12/2025 5:13 AM CDT DIFFERENTIAL AUTO STAT 04/12/2025 5:1 3 AM CDT SEPSIS LACTATE WITH REFLEX STAT 04/12/2025 5:13 AM CDT PHOSPHORUS STAT 04/12/2025 5:13 AM CDT MAGNESIUM STAT 04/12/2025 5:13 AM CDT PRO B-TYPE NATRIURETIC PEPTIDE STAT 04/12/2025 5:13 AM CDT TROPONIN T HIGH-SENSITIVITY SERIES (BASELINE, 2HR, 4HR, 6HR) STAT 04/12/2025 5:13 AM CDT CBC WITH AUTO DIFFERENTIAL STAT 04/12/2025 5:13 AM CDT COMPREHENSIVE METABOLIC PANEL STAT 04/12/2025 5:13 AM CDT ECG 12-LEAD STAT 04/12/2025 5:10 AM CDT XR CHEST 1 VIEW ED 04/12/2025 5:10 AM CDT ID CRITICAL CARE ILL/INJURED PATIENT INIT 30-74 MIN Routine 04/12/2025 5:06 AM CDT CTA ABDOMEN PELVIS W WO CONTRAST Schedule Routine, Read Routine (OP Routine) 09/16/2023 8:47 AM PARKING ENFORCEMENT TECHNICIAN Aftercare following surgery of the circulatory system from Last 3 Months or Most Recently Relevant to Health Maintenance Results * eGFR (05/11/2025 11:17 AM CDT) eGFR >90 >=60 mL/min/1. 73 [...] interpretive data was last reviewed 2021. Blood 05/11/2025 11:1 7 AM CDT 05/11/2025 9:00 PM CDT us Danica Lopez MD LAB BLOOD ORDERABLES Final Resul t [facility] [address] Department [place] [address] * (ABNORMAL) Differential, auto (05/11/2025 11:17 AM CDT) Neutrophil abs 4.88 1.50 - 6.50 K/cumm Imm gran abs 0.03 0.00 - 0.10 K/cumm [facility] Lymphocyte abs 1.25 0.80 - 3.30 K/cumm [facility] Monocyte abs 0.84(H) 0.20 - 0.80 K/cumm [facility] Eosinophil abs 0.30 0.00 - 0.50 K/cumm [facility] Basophil abs 0.07 0.00 - 0.10 K/cumm [facility] Neutrophil pct 66.2 % [facility] Comment: Interpretive Data Percent cell count reference ranges are not reported, since discordance with absolute values may lead to misinterpretation of CBC data. Current Interpretive Data was last revised on 2017. Imm gran pct 0.4 % [facility] Comment: Interpretive Data Percent cell count reference ranges are not reported, since discordance with absolute values may lead to misinterpretation of CBC data. Current Interpretive Data was last revised on 2017. Lymphocyte pct 17.0 % [facility] Comment: Interpretive Data Percent cell count reference ranges are not reported, since discordance with absolute values may lead to misinterpretation of CBC data. Current Interpretive Data was last revised on 2017. Monocyte pct 11.4 % [facility] Comment: Interpretive Data Percent cell count reference ranges are not reported, since discordance with absolute values may lead to misinterpretation of CBC data. Current Interpretive Data was last revised on 2017. Eosinophil pct 4.1 % [facility] Comment: Interpretive Data Percent cell count reference ranges are not reported, since discordance with absolute values may lead to misinterpretation of CBC data. Current Interpretive Data was last revised on 2017. Basophil pct 0.9 % [facility] Comment: Interpretive Data Percent cell count reference ranges are not reported, since discordance with absolute values may lead to misinterpretation of CBC data. Current Interpretive Data was last revised on 2017. Blood 05/11/2025 11:1 7 AM CDT 05/11/2025 3:06 PM CDT us Danica Lopez MD LAB BLOOD ORDERABLES Final Resul t [facility] [address] Department [place] [address] * (ABNORMAL) CBC with auto differential (05/11/2025 11:17 AM CDT) [facility] WBC 7.37 3.80 - 9.90 K/cumm Hgb 14.2 13.0 - 17.5 g/dL [facility] Hct 42.9 38.9 - 50.3 % [facility] Plt 188 150 - 400 K/cumm [facility] MPV 9.9 9.1 - 12.3 fL [facility] RBC 4.16(L) 4.30 - 5.80 M/cumm [facility] MCV 103.1(H) 81.3 - 96.4 fL [facility] MCH 34.1(H) 27.1 - 33.3 pg [facility] MCHC 33.1 32.3 - 35.7 g/dL [facility] RDW CV 13.3 11.1 - 14.9 % [facility] RDW SD 50.9(H) 35.7 - 48.1 fL [facility] NRBC abs 0.00 0.00 - 0.01 K/cumm [facility] Blood 05/11/2025 11:1 7 AM CDT 05/11/2025 3:06 PM CDT us Danica Lopez MD LAB BLOOD ORDERABLES Final Resul t [facility] [facility] [address] Department [place] [address] * (ABNORMAL) Comprehensive metabolic panel (05/11/2025 11:17 AM CDT) [facility] Sodium 143 135 - 145 mmol/L Potassium, pl 4.1 3.3 - 4.9 mmol/L [facility] Chloride 105 97 - 110 mmol/L [facility] CO2 22 22 - 32 mmol/L [facility] Anion gap 16(H) 2 - 15 mmol/L [facility] BUN 10 6 - 25 mg/dL [facility] Creatinine 0.80 0.80 - 1.30 mg/dL [facility] Glucose 96 70 - 199 mg/dL [facility] Comment: Interpretive Data Fasting glucose >/= 126 [...] classification and Diagnosis of Diabetes Diabetes Care 2021; 46: S19-S40. Current interpretive data was last revised 2022. Calcium 8.7 8.5 - 10.3 mg/dL [facility] Bilirubin, total 0.5 0.1 - 1.2 mg/dL [facility] Protein, pl 7.2 6.5 - 8.5 g/dL [facility] Albumin 4.1 3.5 - 5.0 g/dL [facility] Alk phos 84 40 - 130 Units/L [facility] ALT 18 7 - 55 Units/L [facility] AST 19 10 - 50 Units/L [facility] Blood 05/11/2025 11:1 7 AM CDT 05/11/2025 9:00 PM CDT us Danica Lopez MD LAB BLOOD ORDERABLES Final Resul t [facility] [address] Department [place] [address] * XR Chest Pa Lateral 2 Views (05/06/2025 12:38 PM CDT) Anatomical Region Laterality Modality Body, Chest N/A Computed Radiogr aphy 05/14/2025 4:06 AM CDT Narrative 05/14/2025 4:09 AM CDT EXAM DESCRIPTION: XR CHEST PA LATERAL 2 VIEWS REASON FOR STUDY: Pt states he had pneumothorax 2x within 5 weeks. Pt was release from a 6day hospital stay 2 weeks ago. Pt had a procedure in For his right lung. TECHNIQUE: 2 radiographic view(s) of the chest. COMPARISON: 04/18/2025 FINDINGS: Cardiomediastinal silhouette is within normal limits. Possible small right pleural effusion. Linear opacities in the right mid and lower lung zones, likely atelectasis versus scarring. Mild left lower lobe subsegmental atelectasis versus scarring. Interval removal of a right-sided chest tube. No pneumothorax. No pulmonary edema. Possible small left pleural effusion. IMPRESSION: 1. Interval removal of a right-sided chest tube. No pneumothorax. 2. Possible small bilateral pleural effusions versus scarring. THIS IS AN ELECTRONICALLY VERIFIED FINAL REPORT 05/14/2025 4:09 AM - Electronically signed by Rashid Du M.D. BB: LEO Report ID: [id number] Reading Location: [id number] Procedure Note Rashid Du MD PhD - 05/14/2025 EXAM DESCRIPTION: XR CHEST PA LATERAL 2 VIEWS REASON FOR STUDY: Pt states he had pneumothorax 2x within 5 weeks. Pt was release from [facility] hospital stay 2 weeks ago. Pt had a procedure in Apr. For his right lung. TECHNIQUE: 2 radiographic view(s) of the chest. COMPARISON: 04/18/2025 FINDINGS: Cardiomediastinal silhouette is within normal limits. Possible small right pleural effusion. Linear opacities in the right mid and lower lung zones, likely atelectasis versus scarring. Mild left lower lobe subsegmental atelectasis versus scarring. Interval removal of aright-sided chest tube. No pneumothorax. No pulmonary edema. Possible small left pleural effusion. IMPRESSION: 1. Interval removal of a right-sided chest tube. No pneumothorax. 2. Possible small bilateral pleural effusions versus scarring. THIS IS AN ELECTRONICALLY VERIFIED FINAL REPORT 05/14/2025 4:09 AM - Electronically signed by Rashid Du M.D. BB: LEO Report ID: [id number] Reading Location: [id number] Rashid Roberson MD IMG XR PROCEDURES Final Resul t * XR Chest 1 View (04/18/2025 5:36 AM CDT) Anatomical Region Laterality Modality Body, Chest N/A Computed Radiogr aphy 04/18/2025 8:17 AM CDT Narrative 04/18/2025 8:19 AM CDT EXAM DESCRIPTION: XR CHEST 1 VIEW REASON FOR STUDY: Shortness of breath today. TECHNIQUE: Frontal radiographic view of the chest COMPARISON: Chest radiograph 04/17/2025 FINDINGS: LUNGS/PLEURAE: Small lung volumes. Bandlike areas of atelectasis and scarring in the right base are unchanged. No large pleural effusion. There is no pneumothorax. HEART/MEDIASTINUM: Heart size is normal. Normal mediastinal and hilar contours. HARDWARE/LINES/TUBES: Chest tube projects over the central right hemithorax. BONES: No acute findings. IMPRESSION: 1. Small lung volumes with bandlike areas of atelectasis and scarring in the right base. 2. No pneumothorax. Right chest tube projects over the central right hemithorax. THIS IS AN ELECTRONICALLY VERIFIED FINAL REPORT 04/18/2025 8:19 AM - Electronically signed by Ja Blake M.D. T: Report ID: [id number] Reading Location: [place] [address] Procedure Note Ja Blake MD - 04/18/2025 EXAM DESCRIPTION: XR CHEST 1 VIEW REASON FOR STUDY: Shortness of breath today. TECHNIQUE: Frontal radiographic view of the chest COMPARISON: Chest radiograph 04/17/2025 FINDINGS: LUNGS/PLEURAE: Small lung volumes. Bandlike areas ofatelectasis and scarring in the right base are unchanged. No large pleural effusion. There is no pneumothorax. HEART/MEDIASTINUM: Heart size is normal. Normal mediastinal and hilar contours. HARDWARE/LINES/TUBES: Chest tube projects over the central righthemithorax. BONES: No acute findings. IMPRESSION: 1. Small lung volumes with bandlike areas of atelectasis and scarring inthe right base. 2. No pneumothorax. Right chest tube projects over the central right hemithorax. THIS IS AN ELECTRONICALLY VERIFIED FINAL REPORT 04/18/2025 8:19 AM - Electronically signed by Ja HERNANDEZ T: Report ID: [id number] Reading Location: [id number] Amina MELARA IMG XR PROCEDURES Final Resul t * eGFR (04/18/2025 3:50 AM CDT) eGFR >90 >=60 mL/min/1. 73 [...] interpretive data was last reviewed 2021. Blood 04/18/2025 3:50 AM CDT 04/18/2025 4:00 AM CDT Amina MELARA LAB BLOOD ORDERABLES Final Re sult [facility] [address] Department [place] [address] * (ABNORMAL) Differential, auto (04/18/2025 3:50 AM CDT) Neutrophil abs 5.56 1.50 - 6.50 K/cumm Imm gran abs 0.03 0.00 - 0.10 K/cumm [facility] Lymphocyte abs 0.86 0.80 - 3.30 K/cumm [facility] Monocyte abs 1.20(H) 0.20 - 0.80 K/cumm [facility] Eosinophil abs 0.37 0.00 - 0.50 K/cumm [facility] Basophil abs 0.05 0.00 - 0.10 K/cumm [facility] Neutrophil pct 68.8 % [facility] Comment: Interpretive Data Percent cell count reference ranges are not reported, since discordance with absolute values may lead to misinterpretation of CBC data. Current Interpretive Data was last revised on 2017. Imm gran pct 0.4 % [facility] Comment: Interpretive Data Percent cell count reference ranges are not reported, since discordance with absolute values may lead to misinterpretation of CBC data. Current Interpretive Data was last revised on 2017. Lymphocyte pct 10.7 % [facility] Comment: Interpretive Data Percent cell count reference ranges are not reported, since discordance with absolute values may lead to misinterpretation of CBC data. Current Interpretive Data was last revised on 2017. Monocyte pct 14.9 % [facility] Comment: Interpretive Data Percent cell count reference ranges are not reported, since discordance with absolute values may lead to misinterpretation of CBC data. Current Interpretive Data was last revised on 2017. Eosinophil pct 4.6 % [facility] Comment: Interpretive Data Percent cell count reference ranges are not reported, since discordance with absolute values may lead to misinterpretation of CBC data. Current Interpretive Data was last revised on 2017. Basophil pct 0.6 % [facility] Comment: Interpretive Data Percent cell count reference ranges are not reported, since discordance with absolute values may lead to misinterpretation of CBC data. Current Interpretive Data was last revised on 2017. Blood 04/18/2025 3:50 AM CDT 04/18/2025 4:00 AM CDT us Amina MELARA LAB BLOOD ORDERABLES Final Re sult [facility] [address] Department [place] [address] * (ABNORMAL) CBC with auto differential (04/18/2025 3:50 AM CDT) [facility] WBC 8.07 3.80 - 9.90 K/cumm Hgb 13.5 13.0 - 17.5 g/dL [facility] Hct 38.9 38.9 - 50.3 % [facility] Plt 159 150 - 400 K/cumm [facility] MPV 9.5 9.1 - 12.3 fL [facility] RBC 3.95(L) 4.30 - 5.80 M/cumm [facility] MCV 98.5(H) 81.3 - 96.4 fL [facility] MCH 34.2(H) 27.1 - 33.3 pg [facility] MCHC 34.7 32.3 - 35.7 g/dL [facility] RDW CV 13.0 11.1 - 14.9 % [facility] RDW SD 46.5 35.7 - 48.1 fL [facility] NRBC abs 0.00 0.00 - 0.01 K/cumm [facility] Blood 04/18/2025 3:50 AM CDT 04/18/2025 4:00 AM CDT us Amina MELARA LAB BLOOD ORDERABLES Final Re sult [facility] [address] Department [place] [address] * (ABNORMAL) Basic metabolic panel (04/18/2025 3:50 AM CDT) [facility] Sodium 137 135 - 145 mmol/L Potassium, pl 3.5 3.3 - 4.9 mmol/L [facility] Chloride 101 97 - 110 mmol/L [facility] CO2 24 22 - 32 mmol/L [facility] Anion gap 12 2 - 15 mmol/L [facility] BUN 12 6 - 25 mg/dL [facility] Creatinine 0.61(L) 0.80 - 1.30 mg/dL [facility] Glucose 113 70 - 199 mg/dL [facility] Comment: Interpretive Data Fasting glucose [...] classification and Diagnosis of Diabetes Diabetes Care 2021; 46: S19-S40. Current interpretive data was last revised 2022. Calcium 8.8 8.5 - 10.3 mg/dL [facility] Blood 04/18/2025 3:50 AM CDT 04/18/2025 4:00 AM CDT us Amina MELARA LAB BLOOD ORDERABLES Final Re sult [facility] [address] Department [place] [address] * XR Chest 1 View (04/17/2025 4:58 AM CDT) Anatomical Region Laterality Modality Body, Chest N/A Computed Radiogr aphy 04/17/2025 8:55 AM CDT Narrative 04/17/2025 8:58 AM CDT EXAM DESCRIPTION: XR CHEST 1 VIEW REASON FOR STUDY: s/p VATS To ED 04/12/25 with sudden onset SOB that started at 4 am. Hx of spontaneous pneumothorax and felt similar. Xray showed Large right pneumothorax with a component of tension and leftward shift of the mediastinal compartment. Chest tube placed. Post op 04/14/25 VATS pleurodesis (R) Daily. TECHNIQUE: 1 radiographic view(s) of the chest. COMPARISON: 04/16/2025. FINDINGS: LUNGS: A tiny right apical pneumothorax is suspected.. Unchanged linear opacities at the lung bases, favored to be atelectasis.. No pleural effusion is seen. There is a trace right pleural effusion. HEART/MEDIASTINUM: The heart size and cardiomediastinal contours are unchanged. Aortic atherosclerosis is present. LINES/TUBES: The more lateral right chest tube has been removed. The more medial right chest tube projects in unchanged position. BONES: No acute displaced fracture or aggressive bone lesion is seen. IMPRESSION: Suspected tiny right apical pneumothorax. Unchanged position of the more medial right chest tube. The more lateral right chest tube has been removed. Trace right pleural effusion. Unchanged bibasilar atelectasis. THIS IS AN ELECTRONICALLY VERIFIED FINAL REPORT 04/17/2025 8:58 AM - Electronically signed by Ramón Campbell M.D. MZ T: Report ID: [id number] Reading Location: [place] [address] Procedure Note Ramón Campbell MD - 04/17/2025 EXAM DESCRIPTION: XR CHEST 1 VIEW REASON FOR STUDY: s/p VATS To ED 04/12/25 with sudden onset SOB that started at 4 am. Hx ofspontaneous pneumothorax and felt similar. Xray showed Large right pneumothoraxwith a component of tension and leftward shift of the mediastinalcompartment. Chest tube placed. Post op 04/14/25 VATS pleurodesis (R) Daily. TECHNIQUE: 1 radiographic view(s) of the chest. COMPARISON: 04/16/2025. FINDINGS: LUNGS: A tiny right apical pneumothorax is suspected..Unchanged linear opacities at the lung bases, favored to be atelectasis.. Nopleural effusion is seen. There is a trace right pleural effusion. HEART/MEDIASTINUM: The heart size and cardiomediastinal contours are unchanged. Aortic atherosclerosis is present. LINES/TUBES: The more lateral right chest tube has been removed. Themore medial right chest tube projects in unchanged position. BONES: No acute displaced fracture or aggressive bone lesion is seen. IMPRESSION: Suspected tiny right apical pneumothorax. Unchanged positionof the more medial right chest tube. The more lateral right chest tube hasbeen removed. Trace right pleural effusion. Unchanged bibasilar atelectasis. THIS IS AN ELECTRONICALLY VERIFIED FINAL REPORT 04/17/2025 8:58 AM - Electronically signed by Ramón Campbell M.D. MZ T: Report ID: [id number] Reading Location: [place] [address] us Amina MELARA IMG XR PROCEDURES Final Resul t * eGFR (04/17/2025 2:10 AM CDT) [facility] eGFR >90 >=60 mL/min/1. 73 m2 Comment: [...] interpretive data was last reviewed 2021. Blood 04/17/2025 2:10 AM CDT 04/17/2025 3:04 AM CDT us Amina MELARA LAB BLOOD ORDERABLES Final Re sult [facility] [address] Department [place] [address] * (ABNORMAL) Differential, auto (04/17/2025 2:10 AM CDT) [facility] Neutrophil abs 6.63(H) 1.50 - 6.50 K/cumm Imm gran abs 0.03 0.00 - 0.10 K/cumm [facility] Lymphocyte abs 0.86 0.80 - 3.30 K/cumm [facility] Monocyte abs 1.30(H) 0.20 - 0.80 K/cumm [facility] Eosinophil abs 0.20 0.00 - 0.50 K/cumm [facility] Basophil abs 0.06 0.00 - 0.10 K/cumm [facility] Neutrophil pct 73.0 % [facility] Comment: Interpretive Data Percent cell count reference ranges are not reported, since discordance with absolute values may lead to misinterpretation of CBC data. Current Interpretive Data was last revised on 2017. Imm gran pct 0.3 % [facility] Comment: Interpretive Data Percent cell count reference ranges are not reported, since discordance with absolute values may lead to misinterpretation of CBC data. Current Interpretive Data was last revised on 2017. Lymphocyte pct 9.5 % [facility] Comment: Interpretive Data Percent cell count reference ranges are not reported, since discordance with absolute values may lead to misinterpretation of CBC data. Current Interpretive Data was last revised on 2017. Monocyte pct 14.3 % [facility] Comment: Interpretive Data Percent cell count reference ranges are not reported, since discordance with absolute values may lead to misinterpretation of CBC data. Current Interpretive Data was last revised on 2017. Eosinophil pct 2.2 % [facility] Comment: Interpretive Data Percent cell count reference ranges are not reported, since discordance with absolute values may lead to misinterpretation of CBC data. Current Interpretive Data was last revised on 2017. Basophil pct 0.7 % [facility] Comment: Interpretive Data Percent cell count reference ranges are not reported, since discordance with absolute values may lead to misinterpretation of CBC data. Current Interpretive Data was last revised on 2017. Blood 04/17/2025 2:10 AM CDT 04/17/2025 3:05 AM CDT us Amina MELARA LAB BLOOD ORDERABLES Final Re sult [facility] [address] Department of Laboratories [place], [place] [id number] * (ABNORMAL) CBC with auto differential (04/17/2025 2:10 AM CDT) WBC 9.08 3.80 - 9.90 K/cumm Hgb 13.3 13.0 - 17.5 g/dL [facility] Hct 39.0 38.9 - 50.3 % [facility] Plt 151 150 - 400 K/cumm [facility] MPV 9.8 9.1 - 12.3 fL [facility] RBC 3.90(L) 4.30 - 5.80 M/cumm [facility] MCV 100.0(H) 81.3 - 96.4 fL [facility] MCH 34.1(H) 27.1 - 33.3 pg [facility] MCHC 34.1 32.3 - 35.7 g/dL [facility] RDW CV 13.4 11.1 - 14.9 % [facility] RDW SD 49.3(H) 35.7 - 48.1 fL [facility] NRBC abs 0.00 0.00 - 0.01 K/cumm [facility] Blood 04/17/2025 2:10 AM CDT 04/17/2025 3:05 AM CDT us Amina MELARA LAB BLOOD ORDERABLES Final Re sult [facility] [address] Department [place] [address] * (ABNORMAL) Basic metabolic panel (04/17/2025 2:10 AM CDT) Sodium 136 135 - 145 mmol/L Potassium, pl 3.6 3.3 - 4.9 mmol/L [facility] Comment:Hemolyzed; Potassium value may be falsely elevated by as much as 1.0 mmol/L. Suggest redraw and reanalysis. Chloride 100 97 - 110 mmol/L [facility] CO2 26 22 - 32 mmol/L [facility] Anion gap 10 2 - 15 mmol/L [facility] BUN 13 6 - 25 mg/dL [facility] Creatinine 0.67(L) 0.80 - 1.30 mg/dL [facility] Glucose 116 70 - 199 mg/dL [facility] Comment: Interpretive Data Fasting glucose [...] classification and Diagnosis of Diabetes Diabetes Care 2021; 46: S19-S40. Current interpretive data was last revised 2022. Calcium 8.7 8.5 - 10.3 mg/dL [facility] Blood 04/17/2025 2:10 AM CDT 04/17/2025 3:04 AM CDT us Amina MELARA LAB BLOOD ORDERABLES Final Re sult [facility] [address] Department [place] [address] * XR Chest 1 View (04/16/2025 5:18 AM CDT) Anatomical Region Laterality Modality Body, Chest N/A Computed Radiogr aphy 04/16/2025 10:3 4 AM CDT Narrative 04/16/2025 10:36 AM CDT EXAM DESCRIPTION: XR CHEST 1 VIEW REASON FOR STUDY: Pleural effusion To ED 04/12/25 with sudden onset SOB that started at 4 am. Hx of spontaneous pneumothorax and felt similar. Xray showed Large right pneumothorax with a component of tension and leftward shift of the mediastinal compartment. Chest tube placed. Post op 04/14/25 VATS pleurodesis (R) Daily. TECHNIQUE: Single radiographic view(s) of the chest. COMPARISON: Prior exam 04/15/2025, 04/14/2025 FINDINGS: LUNGS: No definite pneumothorax at this time. Layer linear opacities right lung base favoring areas of atelectasis. Trivial opacity left lung base. HEART/MEDIASTINUM: Senescent change of the aorta. Otherwise, normal cardiomediastinal silhouette. LINES/TUBES: There are 2 right-sided chest tubes, unchanged in the appearance. BONES: No acute osseous abnormality. IMPRESSION: 1. There are 2 right-sided chest tubes unchanged in position. No definite pneumothorax at this time. 2. Linear opacities right lung base favoring areas of atelectasis. Trivial opacity left lung base. THIS IS AN ELECTRONICALLY VERIFIED FINAL REPORT 04/16/2025 10:36 AM - Electronically signed by Milad HERNANDEZ T: Report ID: [id number] Reading Location: [place] [address] Procedure Note Milad Pineda MD - 04/16/2025 EXAM DESCRIPTION: XR CHEST 1 VIEW REASON FOR STUDY: Pleural effusion To ED 04/12/25 with sudden onset SOB that started at 4 am. Hx ofspontaneous pneumothorax and felt similar. Xray showed Large right pneumothorax witha component of tension and leftward shift of the mediastinal compartment.Chest tube placed. Post op 04/14/25 VATS pleurodesis (R) Daily. TECHNIQUE: Single radiographic view(s) of the chest. COMPARISON: Prior exam 04/15/2025, 04/14/2025 FINDINGS: LUNGS: No definite pneumothorax at this time. Layer linear opacities right lung base favoring areas of atelectasis. Trivial opacityleft lung base. HEART/MEDIASTINUM: Senescent change of the aorta. Otherwise, normal cardiomediastinal silhouette. LINES/TUBES: There are 2 right-sided chest tubes, unchanged in the appearance. BONES: No acute osseous abnormality. IMPRESSION: 1. There are 2 right-sided chest tubes unchanged in position. Nodefinite pneumothorax at this time. 2. Linear opacities right lung base favoring areas of atelectasis.Trivial opacity left lung base. THIS IS AN ELECTRONICALLY VERIFIED FINAL REPORT 04/16/2025 10:36 AM - Electronically signed by Milad HERNANDEZ T: Report ID: [id number] Reading Location: [place] [address] us Amina MELARA IMG XR PROCEDURES Final Resul t * eGFR (04/16/2025 2:42 AM CDT) eGFR >90 >=60 mL/min/1. 73 [...] interpretive data was last reviewed 2021. Blood 04/16/2025 2:42 AM CDT 04/16/2025 3:44 AM CDT us Amina MELARA LAB BLOOD ORDERABLES Final Re sult [place] [id number] Department [place] [address] * (ABNORMAL) Differential, auto (04/16/2025 2:42 AM CDT) Neutrophil abs 6.83(H) 1.50 - 6.50 K/cumm Imm gran abs 0.05 0.00 - 0.10 K/cumm [facility] Lymphocyte abs 1.01 0.80 - 3.30 K/cumm [facility] Monocyte abs 1.24(H) 0.20 - 0.80 K/cumm [facility] Eosinophil abs 0.12 0.00 - 0.50 K/cumm [facility] Basophil abs 0.05 0.00 - 0.10 K/cumm [facility] Neutrophil pct 73.5 % [facility] Comment: Interpretive Data Percent cell count reference ranges are not reported, since discordance with absolute values may lead to misinterpretation of CBC data. Current Interpretive Data was last revised on 2017. Imm gran pct 0.5 % [facility] Comment: Interpretive Data Percent cell count reference ranges are not reported, since discordance with absolute values may lead to misinterpretation of CBC data. Current Interpretive Data was last revised on 2017. Lymphocyte pct 10.9 % [facility] Comment: Interpretive Data Percent cell count reference ranges are not reported, since discordance with absolute values may lead to misinterpretation of CBC data. Current Interpretive Data was last revised on 2017. Monocyte pct 13.3 % [facility] Comment: Interpretive Data Percent cell count reference ranges are not reported, since discordance with absolute values may lead to misinterpretation of CBC data. Current Interpretive Data was last revised on 2017. Eosinophil pct 1.3 % [facility] Comment: Interpretive Data Percent cell count reference ranges are not reported, since discordance with absolute values may lead to misinterpretation of CBC data. Current Interpretive Data was last revised on 2017. Basophil pct 0.5 % [facility] Comment: Interpretive Data Percent cell count reference ranges are not reported, since discordance with absolute values may lead to misinterpretation of CBC data. Current Interpretive Data was last revised on 2017. Blood 04/16/2025 2:42 AM CDT 04/16/2025 3:44 AM CDT us Amina MELARA LAB BLOOD ORDERABLES Final Re sult [place] [id number] Department [place] [address] * (ABNORMAL) CBC with auto differential (04/16/2025 2:42 AM CDT) WBC 9.30 3.80 - 9.90 K/cumm Hgb 13.0 13.0 - 17.5 g/dL [facility] Hct 38.9 38.9 - 50.3 % [facility] Plt 153 150 - 400 K/cumm [facility] MPV 9.7 9.1 - 12.3 fL [facility] RBC 3.81(L) 4.30 - 5.80 M/cumm [facility] MCV 102.1(H) 81.3 - 96.4 fL [facility] MCH 34.1(H) 27.1 - 33.3 pg [facility] MCHC 33.4 32.3 - 35.7 g/dL [facility] RDW CV 13.5 11.1 - 14.9 % [facility] RDW SD 50.7(H) 35.7 - 48.1 fL [facility] NRBC abs 0.00 0.00 - 0.01 K/cumm [facility] Blood 04/16/2025 2:42 AM CDT 04/16/2025 3:44 AM CDT Amina MELARA LAB BLOOD ORDERABLES Final Re sult Performing Organization Address City/[facility] Co de Phone Number [facility] [address] Department [place] [address] * (ABNORMAL) Basic metabolic panel (04/16/2025 2:42 AM CDT) Sodium 137 135 - 145 mmol/L Potassium, pl 3.8 3.3 - 4.9 mmol/L [facility] Chloride 101 97 - 110 mmol/L [facility] CO2 26 22 - 32 mmol/L [facility] Anion gap 10 2 - 15 mmol/L [facility] BUN 15 6 - 25 mg/dL [facility] Creatinine 0.73(L) 0.80 - 1.30 mg/dL [facility] Glucose 112 70 - 199 mg/dL [facility] Comment: Interpretive Data Fasting glucose [...] interpretive data was last revised 2022. Calcium 8.6 8.5 - 10.3 mg/dL [facility] Blood 04/16/2025 2:42 AM CDT 04/16/2025 3:44 AM CDT Amina MELARA LAB BLOOD ORDERABLES Final Re sult Performing Organization Address [facility] Co de Phone Number [facility] [address] Department [place] [address] * XR Chest 1 View (04/15/2025 5:53 AM CDT) Anatomical Region Laterality Modality Body, Chest N/A Computed Radiogr aphy 04/15/2025 12:3 4 PM CDT Narrative 04/15/2025 12:35 PM CDT EXAM DESCRIPTION: XR CHEST 1 VIEW REASON FOR STUDY: Pleural effusion To ED 04/12/25 with sudden onset SOB that started at 4 am. Hx of spontaneous pneumothorax and felt similar. Xray showed Large right pneumothorax with a component of tension and leftward shift of the mediastinal compartment. Chest tube placed. Post op 04/14/25 VATS pleurodesis (R) Daily. TECHNIQUE: Single-view COMPARISON: 04/14/2025 FINDINGS: 2 right-sided chest tubes remain unchanged in position. Questionable tiny apical pneumothorax on the right. Bibasilar interstitial densities persists suggesting atelectasis with infiltrative not excluded. No large effusion. IMPRESSION: 1. Questionable tiny right apical pneumothorax with [address] 2. Persistent bibasilar atelectasis and/or infiltrate. THIS IS AN ELECTRONICALLY VERIFIED FINAL REPORT 04/15/2025 12:35 PM - Electronically signed by Nick Casarez M.D. RB T: Report ID: [id number] Reading Location: [place] [address] Procedure Note Nick Casarez MD - 04/15/2025 EXAM DESCRIPTION: XR CHEST 1 VIEW REASON FOR STUDY: Pleural effusion To ED 04/12/25 with sudden onset SOB that started at 4 am. Hx ofspontaneous pneumothorax and felt similar. Xray showed Large right pneumothorax with a component of tension and leftward shift of the mediastinal compartment.Chest tube placed. Post op 04/14/25 VATS pleurodesis (R) Daily. TECHNIQUE: Single-view COMPARISON: 04/14/2025 FINDINGS: 2 right-sided chest tubes remain unchanged in position. Questionable tiny apical pneumothorax on the right. Bibasilar interstitial densities persists suggesting atelectasis with infiltrative not excluded. No large effusion. IMPRESSION: 1. Questionable tiny right apical pneumothorax with [address] 2. Persistent bibasilar atelectasis and/or infiltrate. THIS IS AN ELECTRONICALLY VERIFIED FINAL REPORT 04/15/2025 12:35 PM - Electronically signed by Nick Casarez M.D. RB T: Report ID: [id number] Reading Location: [place] [address] Amina MELARA IMG XR PROCEDURES Final Resul t * eGFR (04/15/2025 2:41 AM CDT) eGFR >90 >=60 mL/min/1. 73 [...] interpretive data was last reviewed 2021. Blood 04/15/2025 2:41 AM CDT 04/15/2025 3:45 AM CDT Amina MELARA LAB BLOOD ORDERABLES Final Re sult [facility] [address] Department [place] [address] * (ABNORMAL) Differential, auto (04/15/2025 2:41 AM CDT) Neutrophil abs 8.84(H) 1.50 - 6.50 K/cumm Imm gran abs 0.06 0.00 - 0.10 K/cumm [facility] Lymphocyte abs 0.79(L) 0.80 - 3.30 K/cumm [facility] Monocyte abs 1.37(H) 0.20 - 0.80 K/cumm [facility] Eosinophil abs 0.00 0.00 - 0.50 K/cumm [facility] Basophil abs 0.03 0.00 - 0.10 K/cumm [facility] Neutrophil pct 79.7 % [facility] Comment: Interpretive Data Percent cell count reference ranges are not reported, since discordance with absolute values may lead to misinterpretation of CBC data. Current Interpretive Data was last revised on 2017. Imm gran pct 0.5 % [facility] Comment: Interpretive Data Percent cell count reference ranges are not reported, since discordance with absolute values may lead to misinterpretation of CBC data. Current Interpretive Data was last revised on 2017. Lymphocyte pct 7.1 % [facility] Comment: Interpretive Data Percent cell count reference ranges are not reported, since discordance with absolute values may lead to misinterpretation of CBC data. Current Interpretive Data was last revised on 2017. Monocyte pct 12.4 % [facility] Comment: Interpretive Data Percent cell count reference ranges are not reported, since discordance with absolute values may lead to misinterpretation of CBC data. Current Interpretive Data was last revised on 2017. Eosinophil pct 0.0 % [facility] Comment: Interpretive Data Percent cell count reference ranges are not reported, since discordance with absolute values may lead to misinterpretation of CBC data. Current Interpretive Data was last revised on 2017. Basophil pct 0.3 % [facility] Comment: Interpretive Data Percent cell count reference ranges are not reported, since discordance with absolute values may lead to misinterpretation of CBC data. Current Interpretive Data was last revised on 2017. Blood 04/15/2025 2:41 AM CDT 04/15/2025 3:45 AM CDT Amina MELARA LAB BLOOD ORDERABLES Final Re sult Performing Organization Address City/State/[facility] de Phone Number [place] [phone] [facility] [place] [address] * (ABNORMAL) CBC with auto differential (04/15/2025 2:41 AM CDT) [facility] WBC 11.09(H) 3.80 - 9.90 K/cumm Hgb 14.2 13.0 - 17.5 g/dL [facility] Hct 41.3 38.9 - 50.3 % [facility] Plt 192 150 - 400 K/cumm [facility] MPV 9.7 9.1 - 12.3 fL [facility] RBC 4.05(L) 4.30 - 5.80 M/cumm [facility] MCV 102.0(H) 81.3 - 96.4 fL [facility] MCH 35.1(H) 27.1 - 33.3 pg [facility] MCHC 34.4 32.3 - 35.7 g/dL [facility] RDW CV 13.6 11.1 - 14.9 % [facility] RDW SD 51.3(H) 35.7 - 48.1 fL [facility] NRBC abs 0.00 0.00 - 0.01 K/cumm [facility] Blood 04/15/2025 2:41 AM CDT 04/15/2025 3:45 AM CDT us Amina MELARA LAB BLOOD ORDERABLES Final Lizet vivas Performing Organization Address [facility] Co de Phone Number [facility] Department [place] [address] * (ABNORMAL) Basic metabolic panel (04/15/2025 2:41 AM CDT) [facility] Sodium 138 135 - 145 mmol/L Potassium, pl 4.2 3.3 - 4.9 mmol/L [facility] Chloride 99 97 - 110 mmol/L [facility] CO2 27 22 - 32 mmol/L [facility] Anion gap 12 2 - 15 mmol/L [facility] BUN 10 6 - 25 mg/dL [facility] Creatinine 0.75(L) 0.80 - 1.30 mg/dL [facility] Glucose 116 70 - 199 mg/dL [facility] Comment: Interpretive Data Fasting glucose [...] classification and Diagnosis of Diabetes Diabetes Care 2021; 46: S19-S40. Current interpretive data was last revised 2022. Calcium 9.2 8.5 - 10.3 mg/dL [facility] Blood 04/15/2025 2:41 AM CDT 04/15/2025 3:45 AM CDT us Amina MELARA LAB BLOOD ORDERABLES Final Re sult [facility] [address] Department [place] [address] * XR Chest 1 View - in ICU (04/14/2025 10:54 AM CDT) Anatomical Region Laterality Modality Body, Chest N/A Computed Radiogr aphy 04/14/2025 3:07 PM CDT Narrative 04/14/2025 3:10 PM CDT EXAM DESCRIPTION: XR CHEST 1 VIEW REASON FOR STUDY: pneumothorax, s/p VATS Pt order sts: pneumothorax s/p VATS TECHNIQUE: Single radiographic view(s) of the chest. COMPARISON: 04/14/2025 FINDINGS: LUNGS: Bandlike bibasilar opacities appear unchanged. There is no sizable pneumothorax or pleural effusion appreciated. HEART/MEDIASTINUM: Unchanged LINES/TUBES: 2 right-sided chest tubes appear unchanged in the right mid and upper lung. BONES: No acute osseous abnormality. There is a small amount of subcutaneous emphysema in the lower lateral right chest. IMPRESSION: No sizable pneumothorax appreciated. Unchanged bandlike bibasilar opacities. Small amount of subcutaneous emphysema in the lower lateral right hemithorax. THIS IS AN ELECTRONICALLY VERIFIED FINAL REPORT 04/14/2025 3:10 PM - Electronically signed by Babatunde Hardy M.D. AM T: Report ID: [id number] Reading Location: [id number] Procedure Note Babatunde Hardy MD - 04/14/2025 EXAM DESCRIPTION: XR CHEST 1 VIEW REASON FOR STUDY: pneumothorax, s/p VATS Pt order sts: pneumothorax s/p VATS TECHNIQUE: Single radiographic view(s) of the chest. COMPARISON: 04/14/2025 FINDINGS: LUNGS: Bandlike bibasilar opacities appear unchanged. There isno sizable pneumothorax or pleural effusion appreciated. HEART/MEDIASTINUM: Unchanged LINES/TUBES: 2 right-sided chest tubes appear unchanged in the right midand upper lung. BONES: No acute osseous abnormality. There is a small amount of subcutaneous emphysema in the lower lateralright chest. IMPRESSION: No sizable pneumothorax appreciated. Unchanged bandlike bibasilar opacities. Small amount of subcutaneous emphysema in the lower lateral righthemithorax. THIS IS AN ELECTRONICALLY VERIFIED FINAL REPORT 04/14/2025 3:10 PM - Electronically signed by Babatunde Hardy M.D. AM T: Report ID: [id number] Reading Location: [id number] Amina MELARA IMG XR PROCEDURES Final Resul t * XR Chest 1 View (04/14/2025 9:14 AM CDT) Anatomical Region Laterality Modality Body, Chest N/A Computed Radiogr aphy 04/14/2025 10:2 6 AM CDT Narrative 04/14/2025 10:27 AM CDT EXAM DESCRIPTION: XR CHEST 1 VIEW REASON FOR STUDY: VATS Chest x-ray post VATS in OR today. TECHNIQUE: Single-view COMPARISON: 04/14/2025 FINDINGS: 2 right-sided chest tubes have replaced the previous pigtail drain. Resolution previous pneumothorax. Band like densities at the bases persist. IMPRESSION: 2 right-sided chest tubes with resolution previous pneumothorax. THIS IS AN ELECTRONICALLY VERIFIED FINAL REPORT 04/14/2025 10:27 AM - Electronically signed by Nick GRIGGS T: Report ID: [id number] Reading Location: [id number] Procedure Note Nick Casarez MD - 04/14/2025 EXAM DESCRIPTION: XR CHEST 1 VIEW REASON FOR STUDY: VATS Chest x-ray post VATS in OR today. TECHNIQUE: Single-view COMPARISON: 04/14/2025 FINDINGS: 2 right-sided chest tubes have replaced the previous pigtail drain. Resolution previous pneumothorax. Band like densities at the bases persist. IMPRESSION: 2 right-sided chest tubes with resolution previouspneumothorax. THIS IS AN ELECTRONICALLY VERIFIED FINAL REPORT 04/14/2025 10:27 AM - Electronically signed by Nick GRIGGS T: Report ID: [id number] Reading Location: [id number] Amina MELARA IMG XR PROCEDURES Final Resul t * ID AN ELECTIVE ENDOTRACHEAL AIRWAY, ID AN PROCEDURE PLACEHOLDER (04/14/2025 8:06 AM CDT) Narrative Lucinda Leonard CRNA - 04/14/2025 8:06 AM CDT Lucinda Leonard CRNA 04/14/2025 8:10 AM Airway Patient location: OR Urgency: elective Indications for airway management: anesthesia Difficult airway: no Staff: Placed by: MUSHROOM GROWING SUPERVISOR: Lucinda Leonard CRNA Emergent airway documentation: Risks and benefits discussed: yes Consent obtained: yes Consent given by: patient Airway prep: Preoxygenated: yes Patient position: sniffing Mask difficulty assessment: 2 - vent by mask + OA or adjuvant Spontaneous ventilation during airway: absent Sedation level during airway: deep Final airway details: Final airway type: endotracheal airway Tube type: ETT - double lumen right ETT double lumen: 39 fr Cuffed: yes Technique used for successful ETT placement: video laryngoscopy Devices/Methods used in placement: intubating stylet Insertion site: oral Blade type: s4. Video blade type: Glidescope Cormack-Lehane (video): grade I - full view of glottis Cuff inflated with: air Placement verified by: auscultation and CO2 detection Airway secured with: other (pink tape) Number of attempts: 2 Additional comments: Placed double lumen by bronchoscope by Dr. Pryor Zachary Pryor MD ANESTHESIA ORDERABLES Final Result * XR Chest 1 View (04/14/2025 5:46 AM CDT) Anatomical Region Laterality Modality Body, Chest N/A Computed Radiogr aphy 04/14/2025 8:19 AM CDT Narrative 04/14/2025 8:21 AM CDT EXAM DESCRIPTION: XR CHEST 1 VIEW REASON FOR STUDY: Pleural effusion To ED 04/12/25 with sudden onset SOB that started at 4 am. Hx of spontaneous pneumothorax and felt similar. Xray showed Large right pneumothorax with a component of tension and leftward shift of the mediastinal compartment. Chest tube placed. Daily. TECHNIQUE: Single-view COMPARISON: 04/13/2025 FINDINGS: Right-sided pigtail drain partially retracted but generally similar to previous. Tiny apical pneumothorax persists unchanged with no shift of mediastinal structures. Bibasilar linear densities remain which may indicate a combination of atelectasis and/or peribronchial inflammatory change. Central vascularity have normal caliber. IMPRESSION: 1. Tiny right apical pneumothorax unchanged. 2. Right-sided pigtail drain partially retracted. THIS IS AN ELECTRONICALLY VERIFIED FINAL REPORT 04/14/2025 8:21 AM - Electronically signed by Nick GRIGGS T: Report ID: [id number] Reading Location: [id number] Procedure Note Nick Casarez MD - 04/14/2025 EXAM DESCRIPTION: XR CHEST 1 VIEW REASON FOR STUDY: Pleural effusion To ED 04/12/25 with sudden onset SOB that started at 4 am. Hx ofspontaneous pneumothorax and felt similar. Xray showed Large right pneumothorax with a component of tension and leftward shift of the mediastinal compartment.Chest tube placed. Daily. TECHNIQUE: Single-view COMPARISON: 04/13/2025 FINDINGS: Right-sided pigtail drain partially retracted but generally similar to previous. Tiny apical pneumothorax persists unchanged with no shift of mediastinal structures. Bibasilar linear densities remain which may indicate a combination of atelectasis and/or peribronchial inflammatory change. Central vascularity have normal caliber. IMPRESSION: 1. Tiny right apical pneumothorax unchanged. 2. Right-sided pigtail drain partially retracted. THIS IS AN ELECTRONICALLY VERIFIED FINAL REPORT 04/14/2025 8:21 AM - Electronically signed by Nick Casarez M.D. RB T: Report ID: [id number] Reading Location: [place] [address] us Amina MELARA IMG XR PROCEDURES Final Resul t * eGFR (04/14/2025 4:47 AM CDT) eGFR >90 >=60 mL/min/1. 73 [...] interpretive data was last reviewed 2021. Blood 04/14/2025 4:47 AM CDT 04/14/2025 5:19 AM CDT us Genia Ortega NP LAB BLOOD ORDERABLES Final Re sult [facility] [address] Department [place] [address] * (ABNORMAL) Differential, auto (04/14/2025 4:47 AM CDT) Neutrophil abs 5.14 1.50 - 6.50 K/cumm Imm gran abs 0.04 0.00 - 0.10 K/cumm [facility] Lymphocyte abs 1.16 0.80 - 3.30 K/cumm [facility] Monocyte abs 0.99(H) 0.20 - 0.80 K/cumm [facility] Eosinophil abs 0.28 0.00 - 0.50 K/cumm [facility] Basophil abs 0.04 0.00 - 0.10 K/cumm [facility] Neutrophil pct 67.2 % [facility] Comment: Interpretive Data Percent cell count reference ranges are not reported, since discordance with absolute values may lead to misinterpretation of CBC data. Current Interpretive Data was last revised on 2017. Imm gran pct 0.5 % [facility] Comment: Interpretive Data Percent cell count reference ranges are not reported, since discordance with absolute values may lead to misinterpretation of CBC data. Current Interpretive Data was last revised on 2017. Lymphocyte pct 15.2 % [facility] Comment: Interpretive Data Percent cell count reference ranges are not reported, since discordance with absolute values may lead to misinterpretation of CBC data. Current Interpretive Data was last revised on 2017. Monocyte pct 12.9 % [facility] Comment: Interpretive Data Percent cell count reference ranges are not reported, since discordance with absolute values may lead to misinterpretation of CBC data. Current Interpretive Data was last revised on 2017. Eosinophil pct 3.7 % [facility] Comment: Interpretive Data Percent cell count reference ranges are not reported, since discordance with absolute values may lead to misinterpretation of CBC data. Current Interpretive Data was last revised on 2017. Basophil pct 0.5 % [facility] Comment: Interpretive Data Percent cell count reference ranges are not reported, since discordance with absolute values may lead to misinterpretation of CBC data. Current Interpretive Data was last revised on 2017. Blood 04/14/2025 4:47 AM CDT 04/14/2025 5:19 AM CDT Genia Ortega NP LAB BLOOD ORDERABLES Final Re sult Performing Organization Address [facility]/ZIP Co de Phone Number TIARA [address] [employer] [place] [address] * (ABNORMAL) CBC with auto differential (04/14/2025 4:47 AM CDT) Pathologist [facility] WBC 7.65 3.80 - 9.90 K/cumm Hgb 14.3 13.0 - 17.5 g/dL [facility] Hct 43.2 38.9 - 50.3 % [facility] Plt 187 150 - 400 K/cumm [facility] MPV 9.5 9.1 - 12.3 fL [facility] RBC 4.23(L) 4.30 - 5.80 M/cumm [facility] MCV 102.1(H) 81.3 - 96.4 fL [facility] MCH 33.8(H) 27.1 - 33.3 pg [facility] MCHC 33.1 32.3 - 35.7 g/dL [facility] RDW CV 13.8 11.1 - 14.9 % [facility] RDW SD 52.0(H) 35.7 - 48.1 fL [facility] NRBC abs 0.00 0.00 - 0.01 K/cumm [facility] Blood 04/14/2025 4:47 AM CDT 04/14/2025 5:19 AM CDT Amina MELARA LAB BLOOD ORDERABLES Final Re sult Performing Organization Address City/[facility]/ZIP Co de Phone Number [address] [place] [address] * ABO/Rh (04/14/2025 4:47 AM CDT) [facility] ABO/Rh A Positive Blood 04/14/2025 4:47 AM CDT 04/14/2025 5:19 AM CDT Narrative CERNER MH - 04/14/2025 5:59 AM CDT Has the patient had Daratumumab or Isatuximab in the past 6 months?->Unknown Amina Fabian [facility] BLOOD BANK TEST ORDERABLE S Final Result Performing Organization Address [facility] de Phone Number [address] [address] * Antibody screen (04/14/2025 4:47 AM CDT) [facility] Ara, indirect, Gel Interpretation Negative ABSC Blood 04/14/2025 4:47 AM CDT 04/14/2025 5:19 AM CDT Narrative [facility] - 04/14/2025 5:59 AM CDT Has the patient had Daratumumab or Isatuximab in the past 6 months?->Unknown Amina Fabian [facility] BLOOD BANK TEST ORDERABLE S Final Result Performing Organization Address [facility] Phone Number [address] [address] * (ABNORMAL) Basic metabolic panel (04/14/2025 4:47 AM CDT) [facility] Sodium 138 135 - 145 mmol/L Potassium, pl 3.8 3.3 - 4.9 mmol/L [facility] Chloride 102 97 - 110 mmol/L [facility] CO2 25 22 - 32 mmol/L [facility] Anion gap 11 2 - 15 mmol/L [facility] BUN 8 6 - 25 mg/dL [facility] Creatinine 0.72(L) 0.80 - 1.30 mg/dL [facility] Glucose 102 70 - 199 mg/dL [facility] Comment: Interpretive Data Fasting glucose [...] classification and Diagnosis of Diabetes Diabetes Care 2021; 46: S19-S40. Current interpretive data was last revised 2022. Calcium 9.1 8.5 - 10.3 mg/dL TIARA NIKUNJ Blood 04/14/2025 4:47 AM CDT 04/14/2025 5:19 AM CDT us Amina MELARA LAB BLOOD ORDERABLES Final Re sult TIARA [address]VIN [address] Department [place] [address] * XR Chest 1 View (04/13/2025 9:51 AM CDT) Anatomical Region Laterality Modality Body, Chest N/A Computed Radiogr aphy 04/13/2025 12:0 7 PM CDT Narrative 04/13/2025 12:08 PM CDT EXAM DESCRIPTION: XR CHEST 1 VIEW REASON FOR STUDY: Shortness of breath F/u for Sob and chest tube placement yesterday TECHNIQUE: Single radiographic view(s) of the chest. COMPARISON: Prior exam 04/12/2025 and 03/09/2025 FINDINGS: Again seen is a pigtail type catheter overlying the peripheral aspect of the lower 3rd of the right chest. No pneumothorax is seen at this time. Again seen is a band of opacity of the right lower 3rd of the chest favoring atelectasis. Trivial opacity right lung base. Linear opacity left lung base may reflect atelectasis. Vascularity appears normal. Normal cardiomediastinal silhouette. IMPRESSION: 1. Again seen is a pigtail type catheter overlying the peripheral aspect of the lower 3rd of the right chest. No pneumothorax is seen at this time. 2. Again seen is a band of opacity of the right lower 3rd of the chest favoring atelectasis. Trivial linear opacity bilateral base may reflect atelectasis. THIS IS AN ELECTRONICALLY VERIFIED FINAL REPORT 04/13/2025 12:08 PM - Electronically signed by Milad Pineda M.D. MJ T: Report ID: [id number] Reading Location: [id number] Procedure Note Milad Pineda MD - 04/13/2025 EXAM DESCRIPTION: XR CHEST 1 VIEW REASON FOR STUDY: Shortness of breath F/u for Sob and chest tube placement yesterday TECHNIQUE: Single radiographic view(s) of the chest. COMPARISON: Prior exam 04/12/2025 and 03/09/2025 FINDINGS: Again seen is a pigtail type catheter overlying the peripheral aspect of the lower 3rd of the right chest. No pneumothorax is seen atthis time. Again seen is a band of opacity of the right lower 3rd of the chestfavoring atelectasis. Trivial opacity right lung base. Linear opacity left lungbase may reflect atelectasis. Vascularity appears normal. Normal cardiomediastinal silhouette. IMPRESSION: 1. Again seen is a pigtail type catheter overlying the peripheral aspectof the lower 3rd of the right chest. No pneumothorax is seen at this time. 2. Again seen is a band of opacity of the right lower 3rd of the chest favoring atelectasis. Trivial linear opacity bilateral base may reflect atelectasis. THIS IS AN ELECTRONICALLY VERIFIED FINAL REPORT 04/13/2025 12:08 PM - Electronically signed by Milad HERNANDEZ T: Report ID: [id number] Reading Location: [place] [address] Kat Ruiz MD IMG XR PROCEDURES Final Res ult * eGFR (04/13/2025 3:41 AM CDT) eGFR >90 >=60 mL/min/1. 73 [...] interpretive data was last reviewed 2021. Blood 04/13/2025 3:41 AM CDT 04/13/2025 3:59 AM CDT us Juan Perla MD LAB BLOOD ORDERABLES Final Result [facility] [address] Department [place] [address] * (ABNORMAL) Differential, auto (04/13/2025 3:41 AM CDT) Neutrophil abs 6.12 1.50 - 6.50 K/cumm Imm gran abs 0.03 0.00 - 0.10 K/cumm [facility] Lymphocyte abs 1.12 0.80 - 3.30 K/cumm [facility] Monocyte abs 0.81(H) 0.20 - 0.80 K/cumm [facility] Eosinophil abs 0.17 0.00 - 0.50 K/cumm [facility] Basophil abs 0.04 0.00 - 0.10 K/cumm [facility] Neutrophil pct 73.7 % [facility] Comment: Interpretive Data Percent cell count reference ranges are not reported, since discordance with absolute values may lead to misinterpretation of CBC data. Current Interpretive Data was last revised on 2017. Imm gran pct 0.4 % [facility] Comment: Interpretive Data Percent cell count reference ranges are not reported, since discordance with absolute values may lead to misinterpretation of CBC data. Current Interpretive Data was last revised on 2017. Lymphocyte pct 13.5 % [facility] Comment: Interpretive Data Percent cell count reference ranges are not reported, since discordance with absolute values may lead to misinterpretation of CBC data. Current Interpretive Data was last revised on 2017. Monocyte pct 9.8 % [facility] Comment: Interpretive Data Percent cell count reference ranges are not reported, since discordance with absolute values may lead to misinterpretation of CBC data. Current Interpretive Data was last revised on 2017. Eosinophil pct 2.1 % [facility] Comment: Interpretive Data Percent cell count reference ranges are not reported, since discordance with absolute values may lead to misinterpretation of CBC data. Current Interpretive Data was last revised on 2017. Basophil pct 0.5 % [facility] Comment: Interpretive Data Percent cell count reference ranges are not reported, since discordance with absolute values may lead to misinterpretation of CBC data. Current Interpretive Data was last revised on 2017. Blood 04/13/2025 3:41 AM CDT 04/13/2025 3:59 AM CDT us Juan Perla MD LAB BLOOD ORDERABLES Final Result [facility] [address] Department [place] [address] * Pro B-type natriuretic peptide (04/13/2025 3:41 AM CDT) NT-proBNP 182 <=300 pg/mL Comment: Interpretive Comments: A. Dyspnea in Acute Care Setting All Ages: < 300 pg/ml, acute heart failure unlikely. < 50 yrs: 300 - 450 pg/ml, further investigation warranted. > 450 pg/ml, acute heart failure likely. 50 - 74 yrs: 300 - 900 pg/ml, further investigation warranted. > 900 pg/ml, acute heart failure likely . > or = 75 yrs: 450 - 1800 pg/ml, further investigation warranted. > 1800 pg/ml, acute heart failure likely. B. Non-acute Setting < 75 yrs < 125 pg/ml, rules out heart failure. > or = 125 pg/ml, further investigation warranted. > or = 75 yrs < 450 pg/ml, rules out heart failure. > or = 450 pg/ml, further investigation warranted. - Knowledge of each individual patient's NT-proBNP range may be more useful than using similar cut-points for every patient. Please note that marked elevations in NT-proBNP levels may be observed in state other than Left Ventricular Congestive Failure, including: acute coronary syndromes, right heart strain/failure (including pulmonary embolism and cor pulmonale), critical illness, renal failure, as well as advanced age. - References: 1. Lala SCHAEFFER et.al. Eur Heart J. 2006:27:330-337. 2. Frank RW, Shi REYNOSO. J. AM Christofer Cardiol: Cardiovasc Imag. 2009;2: 216- 225. Interpretive Data Last Revised Date: 2018. Blood 04/13/2025 3:41 AM CDT 04/13/2025 3:59 AM CDT Kat Ruiz MD LAB BLOOD ORDERABLES Final Result [place] [id number] Department [place] [address] * (ABNORMAL) CBC with auto differential (04/13/2025 3:41 AM CDT) Pathologist [facility] WBC 8.29 3.80 - 9.90 K/cumm Hgb 13.4 13.0 - 17.5 g/dL [facility] Hct 39.7 38.9 - 50.3 % [facility] Plt 168 150 - 400 K/cumm [facility] MPV 9.3 9.1 - 12.3 fL [facility] RBC 3.92(L) 4.30 - 5.80 M/cumm [facility] MCV 101.3(H) 81.3 - 96.4 fL [facility] MCH 34.2(H) 27.1 - 33.3 pg [facility] MCHC 33.8 32.3 - 35.7 g/dL [facility] RDW CV 14.0 11.1 - 14.9 % [facility] RDW SD 51.5(H) 35.7 - 48.1 fL [facility] NRBC abs 0.00 0.00 - 0.01 K/cumm [facility] Blood 04/13/2025 3:41 AM CDT 04/13/2025 3:59 AM CDT Juan Perla MD LAB BLOOD ORDERABLES Final Result Performing Organization Address City/[facility]/ZIP Co de Phone Number [address] [address] * CRP (acute phase) (04/13/2025 3:41 AM CDT) [facility] CRP 8.4 <=10.0 mg/L Blood 04/13/2025 3:41 AM CDT 04/13/2025 3:59 AM CDT Kat Ruiz MD LAB BLOOD ORDERABLES Final Result Performing Organization Address [facility] de Phone Number [address] [address] * (ABNORMAL) Basic metabolic panel (04/13/2025 3:41 AM CDT) [facility] Sodium 142 135 - 145 mmol/L Potassium, pl 3.8 3.3 - 4.9 mmol/L [facility] Chloride 107 97 - 110 mmol/L [facility] CO2 24 22 - 32 mmol/L [facility] Anion gap 11 2 - 15 mmol/L [facility] BUN 6 6 - 25 mg/dL [facility] Creatinine 0.69(L) 0.80 - 1.30 mg/dL [facility] Glucose 113 70 - 199 mg/dL [facility] Comment: Interpretive Data Fasting glucose [...] interpretive data was last revised 2022. Calcium 8.5 8.5 - 10.3 mg/dL [facility] Blood 04/13/2025 3:41 AM CDT 04/13/2025 3:59 AM CDT Juan Perla MD LAB BLOOD ORDERABLES Final Result [facility] [address] [employer] [place] [address] * Troponin T high-sensitivity 6-hour (04/12/2025 11:16 AM CDT) Trop T hs 18 <=22 ng/L Comment: Interpretive Data For further hscTnT resources including the diagnostic algorithm and an aid in interpretation, copy and paste this link: https://nrl.testcatalog.org/show/hsTrop Current Interpretive Data last revised 2020. Trop T hs delta 2 ng/L [facility] Trop T hs interp Insignificant [facility] Blood 04/12/2025 11:1 6 AM CDT 04/12/2025 11:21 AM CDT Srinivasa Sinclair MD LAB BLOOD ORDERABLES Fi nal Result Performing Organization Address [facility] Co de Phone Number [address] [employer] [place] [address] * HIV 1/2 Antibody plus p24 Antigen Blood (04/12/2025 11:16 AM CDT) HIV 1/2 ab + p24 ag Nonreactive Nonreactive Comment:Nonreactive for HIV- 1 antigen and HIV-1/HIV-2 antibodies. No laboratory evidence of HIV infection. If acute HIV infection is suspected, consider testing for HIV-1 RNA. Current interpretive data was last revised on 22. Blood 04/12/2025 11:1 6 AM CDT 04/12/2025 11:21 AM CDT Genia Ortega NP LAB MICROBIOLOGY - GENERAL OR DERABLES Final Result Performing Organization Address City/[facility]/ZIP Co de Phone Number [address] [employer] [place] [address] * Hepatitis C antibody Blood (04/12/2025 11:16 AM CDT) [facility] Hep C Ab Nonreactive Nonreactive Comment: Antibodies to HCV not detected. Does NOT exclude the possibility of recent exposure to HCV. Current interpretive data was last revised on 22 Interpretive Data Nonreactive: Antibodies to HCV not [...] data was last revised on 2019. Blood 04/12/2025 11:1 6 AM CDT 04/12/2025 11:21 AM CDT Genia Ortega LAB MICROBIOLOGY - GENERAL OR DERABLES Final Result Performing Organization Address [facility] Co de Phone Number TIARA [address] [address] * Ethanol (04/12/2025 11:16 AM CDT) [facility] Ethanol <10 <=10 mg/dL Comment: Interpretive Data Legal limit of intoxication > or = 80 mg/dL Levels > or = 400 mg/dL are potentially TOXIC. Current interpretive data was last revised on 2018. Blood 04/12/2025 11:1 6 AM CDT 04/12/2025 11:21 AM CDT Genia Ortega LAB BLOOD ORDERABLES Final Re sult Performing Organization Address City/[facility] Co de Phone Number TIARA [address] [employer] [place] [address] * Troponin T high-sensitivity 4-hour (04/12/2025 9:16 AM CDT) [facility] Trop T hs 21 <=22 ng/L Comment: Interpretive Data For further hscTnT resources including the diagnostic algorithm and an aid in interpretation, copy and paste this link: https://nrl.testSocial Bicycles.org/show/hsTrop Current Interpretive Data last revised 2020. Trop T hs delta 5 ng/L [facility] Trop T hs interp Equivocal [facility] Blood 04/12/2025 9:16 AM CDT 04/12/2025 9:21 AM CDT Result [facility] Srinivasa Sinclair MD LAB BLOOD ORDERABLES Fi nal Result [address] [address] * Sepsis Lactate w/ Reflex (04/12/2025 9:16 AM CDT) Sepsis Lactate 1.5 0.7 - 2.0 mmol/L Blood 04/12/2025 9:16 AM CDT 04/12/2025 9:21 AM CDT Result [facility] Srinivasa Sinclair MD LAB BLOOD ORDERABLES Fi nal Result Performing Organization Address City/[facility]/ZIP Co de Phone Number [address] [address] * Troponin T high-sensitivity 2-hour (04/12/2025 7:13 AM CDT) Trop T hs 20 <=22 ng/L Comment: Interpretive Data For further hscTnT resources including the diagnostic algorithm and an aid in interpretation, copy and paste this link: https://nrl.[employer].org/show/hsTrop Current Interpretive Data last revised 2020. Trop T hs delta 4 ng/L [facility] Trop T hs interp Insignificant [facility] Blood 04/12/2025 7:13 AM CDT 04/12/2025 7:15 AM CDT Srinivasa Sinclair MD LAB BLOOD ORDERABLES Fi nal Result Performing Organization Address City/[facility] Co de Phone Number [facility] [address] Department [place] [address] * (ABNORMAL) POC Blood Gas and Chemistries, Venous - (04/12/2025 7:06 AM CDT) pH,renny POC 7.37 7.32 - 7.43 pCO2, renny POC 47 40 - 50 mmHg [facility] pO2,renny POC 35 mmHg [facility] Comment: Interpretive Data No reference range established. Current interpretive data was last revised 2020. HCO3, renny (Calc) POC 27 20 - 30 mmol/L [facility] Base excess, renny POC 1 mmol/L [facility] Comment: Interpretive Data No reference range established. Current interpretive data was last revised 2020. Oxy Hgb, renny POC 63.5(L) 90.0 - 95.0 % [facility] Met Hgb, renny POC 0.8 0.0 - 1.9 % [facility] Carboxy Hgb, renny POC 2.1 0.0 - 2.9 % [facility] Hemoglobin, renny POC 14.1 13.0 - 17.5 g/dL [facility] Sodium, renny POC 139 135 - 145 mmol/L [facility] Potassium, renny POC 3.7 3.3 - 4.9 mmol/L [facility] Comment: Interpretive Data This method is not able to assess for hemolysis, which may falsely increase potassium concentrations. If further testing is needed to evaluate this result, consider in-laboratory plasma potassium. Current Interpretive Data was last revised on 2022. Glucose, renny POC 104 70 - 199 mg/dL [facility] Ionized Calcium, renny POC 4.47(L) 4.50 - 5.10 mg/dL [facility] Lactate, renny POC 1.0 0.7 - 2.0 mmol/L [facility] Blood 04/12/2025 7:06 AM CDT 04/12/2025 7:06 AM CDT Juan Perla MD LAB POCT ORDERABLES - DEVICE Final Result [facility] [address] Department [place] [address] * ED CHEST TUBE INSERTION (04/12/2025 6:30 AM CDT) Narrative Srinivasa Sinclair MD - 04/12/2025 6:30 AM CDT Srinivasa Sinclair MD 04/12/2025 6:46 AM Chest Tube Insertion Date/Time: 04/12/2025 6:30 AM Performed by: Srinivasa Sinclair MD Authorized by: Srinivasa Sinclair MD Informed consent: Unable to obtain due to emergent status Skin preparation: ChloraPrep Preparation: Patient was prepped and draped in the usual sterile fashion Sedation used: no Anesthesia method: Local infiltration Local anesthetic: Lidocaine 1% Indications: Respiratory distress and pneumothorax Placement location: R lateral Scalpel size: 11 Tube size (Fr): 12 Ultrasound guidance: no Tension pneumothorax: no Tube connected to: Suction Drainage characteristics: Air only Suture material: 0 silk Dressinx4 sterile gauze and Xeroform gauze Post-insertion x-ray findings: tube in good position Patient tolerance of procedure: Tolerated well, no immediate complications Any special post procedure monitoring, testing or other considerations: n/a Srinivasa Sinclair MD IN CLINIC/BEDSIDE ORDER YU Final Result * XR Chest 1 Vw Portable (04/12/2025 5:46 AM CDT) Anatomical Region Laterality Modality Body, Chest N/A Computed Radiogr aphy 04/12/2025 5:59 AM CDT Narrative 04/12/2025 6:01 AM CDT EXAM DESCRIPTION: XR CHEST 1 VIEW REASON FOR STUDY: chest tube placement Post right sided chest tube insertion TECHNIQUE: AP portable upright radiographic view(s) of the chest. COMPARISON: 04/12/2025 at 5:08 a.m. FINDINGS: LUNGS: There has been interval placement of a right-sided pigtail pleural catheter, catheter is curled at the periphery of the right midlung. There is persistent pneumothorax, most evident at the level of the posterior 3rd rib measuring 1.6 cm. There is opacity within the inferior aspect of the right upper lobe/right perihilar region in the right base presumably atelectasis. Attention on follow-up recommended. HEART/MEDIASTINUM: Cardiac silhouette normal in size. Mediastinal shift has improved. LINES/TUBES: None. BONES: No acute osseous abnormality. IMPRESSION: Interval improvement in right pneumothorax following right chest tube placement. Pigtail pleural catheter projects over the periphery of the right midlung superimposed over the 5th rib. THIS IS AN ELECTRONICALLY VERIFIED FINAL REPORT 04/12/2025 6:01 AM - Electronically signed by Yazmin Mckee M.D. TW T: Report ID: [id number] Reading Location: [id number] Procedure Note Yazmin Mckee MD - 04/12/2025 EXAM DESCRIPTION: XR CHEST 1 VIEW REASON FOR STUDY: chest tube placement Post right sided chest tube insertion TECHNIQUE: AP portable upright radiographic view(s) of the chest. COMPARISON: 04/12/2025 at 5:08 a.m. FINDINGS: LUNGS: There has been interval placement of a right-sidedpigtail pleural catheter, catheter is curled at the periphery of the rightmidlung. There is persistent pneumothorax, most evident at the level of theposterior 3rd rib measuring 1.6 cm. There is opacity within the inferior aspect ofthe right upper lobe/right perihilar region in the right base presumably atelectasis. Attention on follow-up recommended. HEART/MEDIASTINUM: Cardiac silhouette normal in size. Mediastinal shifthas improved. LINES/TUBES: None. BONES: No acute osseous abnormality. IMPRESSION: Interval improvement in right pneumothorax following rightchest tube placement. Pigtail pleural catheter projects over the periphery ofthe right midlung superimposed over the 5th rib. THIS IS AN ELECTRONICALLY VERIFIED FINAL REPORT 04/12/2025 6:01 AM - Electronically signed by Yazmin Mckee M.D. TW T: Report ID: [id number] Reading Location: [id number] Srinivasa Sinclair MD IMG XR PROCEDURES Final Result * Troponin T high-sensitivity series (baseline, 2hr, 4hr, 6hr) (04/12/2025 5:13 AM CDT) [facility] Trop T hs 16 <=22 ng/L Comment: Interpretive Data For further hscTnT resources including the diagnostic algorithm and an aid in interpretation, copy and paste this link: https://nrl.testcatalog.org/show/hsTrop Current Interpretive Data last revised 2020. Blood 04/12/2025 5:13 AM CDT 04/12/2025 5:17 AM CDT Srinivasa Sinclair MD LAB BLOOD ORDERABLES Fi nal Result [facility] [address] [employer] [place] [address] * (ABNORMAL) Sepsis Lactate w/ Reflex (04/12/2025 5:13 AM CDT) [facility] Sepsis Lactate 3.0(H) 0.7 - 2.0 mmol/L Blood 04/12/2025 5:13 AM CDT 04/12/2025 5:17 AM CDT Srinivasa Sinclair MD LAB BLOOD ORDERABLES Fi nal Result Performing Organization Address City/[facility]/ZIP Co de Phone Number [address] [employer] [place] [address] * eGFR (04/12/2025 5:13 AM CDT) [facility] eGFR >90 >=60 mL/min/1. 73 m2 Comment: [...] interpretive data was last reviewed 2021. Blood 04/12/2025 5:13 AM CDT 04/12/2025 5:17 AM CDT us Srinivasa Sinclair MD LAB BLOOD ORDERABLES Fi nal Result [place] [id number] Department [place] [address] * (ABNORMAL) Differential, auto (04/12/2025 5:13 AM CDT) Neutrophil abs 4.85 1.50 - 6.50 K/cumm Imm gran abs 0.04 0.00 - 0.10 K/cumm [facility] Lymphocyte abs 2.32 0.80 - 3.30 K/cumm [facility] Monocyte abs 0.97(H) 0.20 - 0.80 K/cumm [facility] Eosinophil abs 0.34 0.00 - 0.50 K/cumm [facility] Basophil abs 0.07 0.00 - 0.10 K/cumm [facility] Neutrophil pct 56.4 % [facility] Comment: Interpretive Data Percent cell count reference ranges are not reported, since discordance with absolute values may lead to misinterpretation of CBC data. Current Interpretive Data was last revised on 2017. Imm gran pct 0.5 % [facility] Comment: Interpretive Data Percent cell count reference ranges are not reported, since discordance with absolute values may lead to misinterpretation of CBC data. Current Interpretive Data was last revised on 2017. Lymphocyte pct 27.0 % [facility] Comment: Interpretive Data Percent cell count reference ranges are not reported, since discordance with absolute values may lead to misinterpretation of CBC data. Current Interpretive Data was last revised on 2017. Monocyte pct 11.3 % [facility] Comment: Interpretive Data Percent cell count reference ranges are not reported, since discordance with absolute values may lead to misinterpretation of CBC data. Current Interpretive Data was last revised on 2017. Eosinophil pct 4.0 % [facility] Comment: Interpretive Data Percent cell count reference ranges are not reported, since discordance with absolute values may lead to misinterpretation of CBC data. Current Interpretive Data was last revised on 2017. Basophil pct 0.8 % [facility] Comment: Interpretive Data Percent cell count reference ranges are not reported, since discordance with absolute values may lead to misinterpretation of CBC data. Current Interpretive Data was last revised on 2017. Blood 04/12/2025 5:13 AM CDT 04/12/2025 5:17 AM CDT us Srinivasa Sinclair MD LAB BLOOD ORDERABLES Fi nal Result [facility] [address] [facility] [place] [address] * Pro B-type natriuretic peptide (04/12/2025 5:13 AM CDT) NT-proBNP 69 <=300 pg/mL Comment: Interpretive Comments: A. Dyspnea in Acute Care Setting All Ages: < 300 pg/ml, acute heart failure unlikely. < 50 yrs: 300 - 450 pg/ml, further investigation warranted. > 450 pg/ml, acute heart failure likely. 50 - 74 yrs: 300 - 900 pg/ml, further investigation warranted. > 900 pg/ml, acute heart failure likely . > or = 75 yrs: 450 - 1800 pg/ml, further investigation warranted. > 1800 pg/ml, acute heart failure likely. B. Non-acute Setting < 75 yrs < 125 pg/ml, rules out heart failure. > or = 125 pg/ml, further investigation warranted. > or = 75 yrs < 450 pg/ml, rules out heart failure. > or = 450 pg/ml, further investigation warranted. - Knowledge of each individual patient's NT-proBNP range may be more useful than using similar cut-points for every patient. Please note that marked elevations in NT-proBNP levels may be observed in state other than Left Ventricular Congestive Failure, including: acute coronary syndromes, right heart strain/failure (including pulmonary embolism and cor pulmonale), critical illness, renal failure, as well as advanced age. - References: 1. Lala SCHAEFFER et.al. Eur Heart J. 2006:27:330-337. 2. Frank RW, Shi REYNOSO. J. AM Christofer Cardiol: Cardiovasc Imag. 2009;2: 216- 225. Interpretive Data Last Revised Date: 2018. Blood 04/12/2025 5:13 AM CDT 04/12/2025 5:17 AM CDT Srinivasa Sinclair MD LAB BLOOD ORDERABLES nal Result [place] [id number] [facility] [place] [address] * (ABNORMAL) CBC with auto differential (04/12/2025 5:13 AM CDT) [facility] WBC 8.59 3.80 - 9.90 K/cumm Hgb 14.8 13.0 - 17.5 g/dL [facility] Hct 44.2 38.9 - 50.3 % [facility] Plt 198 150 - 400 K/cumm [facility] MPV 9.3 9.1 - 12.3 fL [facility] RBC 4.35 4.30 - 5.80 M/cumm [facility] MCV 101.6(H) 81.3 - 96.4 fL [facility] MCH 34.0(H) 27.1 - 33.3 pg [facility] MCHC 33.5 32.3 - 35.7 g/dL [facility] RDW CV 14.0 11.1 - 14.9 % [facility] RDW SD 52.3(H) 35.7 - 48.1 fL [facility] NRBC abs 0.00 0.00 - 0.01 K/cumm [facility] Blood 04/12/2025 5:13 AM CDT 04/12/2025 5:17 AM CDT Srinivasa Sinclair MD LAB BLOOD ORDERABLES Fi nal Result Performing Organization Address City/[facility]/ZIP Co de Phone Number [address] [employer] [place] [address] * Phosphorus (04/12/2025 5:13 AM CDT) [facility] Phosphorus, pl 3.0 2.3 - 4.5 mg/dL Blood 04/12/2025 5:13 AM CDT 04/12/2025 5:17 AM CDT Srinivasa Sinclair MD LAB BLOOD ORDERABLES Fi nal Result Performing Organization Address [facility] Co de Phone Number [address] [employer] [place] [address] * Magnesium (04/12/2025 5:13 AM CDT) [facility] Magnesium 2.5 1.4 - 2.5 mg/dL Blood 04/12/2025 5:13 AM CDT 04/12/2025 5:17 AM CDT Srinivasa Sinclair MD LAB BLOOD ORDERABLES Fi nal Result Performing Organization Address [facility] Co de Phone Number [address] [employer] [place] [address] * Comprehensive metabolic panel (04/12/2025 5:13 AM CDT) [facility] Sodium 141 135 - 145 mmol/L Potassium, pl 4.2 3.3 - 4.9 mmol/L [facility] Chloride 104 97 - 110 mmol/L [facility] CO2 25 22 - 32 mmol/L [facility] Anion gap 12 2 - 15 mmol/L [facility] BUN 11 6 - 25 mg/dL [facility] Creatinine 0.86 0.80 - 1.30 mg/dL [facility] Glucose 113 70 - 199 mg/dL [facility] Comment: Interpretive Data Fasting glucose [...] classification and Diagnosis of Diabetes Diabetes Care 2021; 46: S19-S40. Current interpretive data was last revised 2022. Calcium 8.9 8.5 - 10.3 mg/dL [facility] Bilirubin, total 0.5 0.1 - 1.2 mg/dL [facility] Protein, pl 7.6 6.5 - 8.5 g/dL [facility] Albumin 4.4 3.5 - 5.0 g/dL [facility] Alk phos 102 40 - 130 Units/L [facility] ALT 18 7 - 55 Units/L [facility] AST 22 10 - 50 Units/L [facility] Blood 04/12/2025 5:13 AM CDT 04/12/2025 5:17 AM CDT us Srinivasa Sinclair MD LAB BLOOD ORDERABLES nal Result [facility] [address] [facility] Department [place] [address] * ECG 12 lead (04/12/2025 5:10 AM CDT) Pathologist [facility] Ventricular Rate EKG/Min 77 BPM [facility] Atrial Rate 77 BPM [facility] ID-Interval (MSEC) 170 ms [facility] QRS-Interval (MSEC) 86 ms [facility] QT-Interval (MSEC) 392 ms [facility] QTc 443 ms [facility] P Basalt 106 degrees [facility] R Basalt 79 degrees [facility] T Basalt 71 degrees [facility] Diagnosis Sinus rhythm with occasional Premature ventricular complexes Low voltage QRS Borderline ECG When compared with ECG of 05-MAR-2025 12:45, Premature atrial complexes are no longer Present Confirmed by Robinson Curry M.D. ([id number]) on 04/12/2025 8:52:33 AM [facility] 04/12/2025 5:10 AM CDT 04/12/2025 8:52 AM CDT us Srinivasa Sinclair MD ECG ORDERABLES Final R esult [facility] * XR Chest 1 Vw Portable (If patient hemodynamically UNstable or UNable to ambulate) (04/12/2025 5:10AM CDT) Anatomical Region Laterality Modality Body, Chest N/A Computed Radiogr aphy 04/12/2025 5:13 AM CDT Narrative 04/12/2025 5:18 AM CDT EXAM DESCRIPTION: XR CHEST 1 VIEW REASON FOR STUDY: Shortness of breath Patient states SOB woke him up Patients states same thing happened when his lung collapsed a month ago decided to go directly to ED Ax4 Denies chest pain just SOB MD at bedside and saw pneumo TECHNIQUE: AP radiographic view(s) of the chest. COMPARISON: 03/09/2025 FINDINGS: LUNGS: There is a large right pneumothorax, with a component of tension and leftward shift of the mediastinal compartment. There is some interstitial prominence within the aerated portion of the right lung and throughout the left lung. There is no significant effusion. No left-sided pneumothorax. HEART/MEDIASTINUM: There is some leftward shift of the mediastinal compartment. Cardiac silhouette is normal in size. LINES/TUBES: None. BONES: No acute osseous abnormality IMPRESSION: Large right pneumothorax with a component of tension and leftward shift of the mediastinal compartment. Findings were conveyed to Dr. Crowley the phone call at 5:16 a.m. on 04/12/2025 THIS IS AN ELECTRONICALLY VERIFIED FINAL REPORT 04/12/2025 5:18 AM - Electronically signed by Yazmin Mckee M.D. TW T: Report ID: [id number] Reading Location: [id number] Procedure Note Yazmin Mckee MD - 04/12/2025 EXAM DESCRIPTION: XR CHEST 1 VIEW REASON FOR STUDY: Shortness of breath Patient states SOB woke him up Patients states same thing happenedwhen his lung collapsed a month ago decided to go directly to ED [id number] chest pain just SOB MD at bedside and saw pneumo TECHNIQUE: AP radiographic view(s) of the chest. COMPARISON: 03/09/2025 FINDINGS: LUNGS: There is a large right pneumothorax, with a component of tension and leftward shift of the mediastinal compartment. There is some interstitial prominence within the aerated portion of the right lung and throughout the left lung. There is no significant effusion. Noleft-sided pneumothorax. HEART/MEDIASTINUM: There is some leftward shift of the mediastinal compartment. Cardiac silhouette is normal in size. LINES/TUBES: None. BONES: No acute osseous abnormality IMPRESSION: Large right pneumothorax with a component of tension andleftward shift of the mediastinal compartment. Findings were conveyed to the phone call at 5:16 a.m. on 04/12/2025 THIS IS AN ELECTRONICALLY VERIFIED FINAL REPORT 04/12/2025 5:18 AM - Electronically signed by Yazmin Mckee M.D. TW T: Report ID: [id number] Reading Location: [place] [address] us Srinivasa Sinclair MD IMG XR PROCEDURES Final Result * ID CRITICAL CARE ILL/INJURED PATIENT INIT 30-74 MIN (04/12/2025 5:06 AM CDT) Narrative Srinivasa Sinclair MD - 04/12/2025 5:06 AM CDT Srinivasa Sinclair MD 04/12/2025 6:46 AM Critical Care Performed by: Srinivasa Sinclair MD Authorized by: Srinivasa Sinclair MD Critical care provider statement: As reflected in the history, physical exam, orders, notes, and/or MDM, I was personally present while the patient was critically ill and provided critical care services for 45 minutes, excluding time involved in separately billable procedures. Critical care was necessary to treat or prevent imminent or life-threatening deterioration of the following condition(s): unstable vital signs hypoxic respiratory failure, threatened airway and severe respiratory condition Critical care was time spent by me providing the following: continuous telemetry, continuous pulse oximetry and continuous capnography supplemental oxygen I provided emergent necessary critical care medicine services to this patient. I ordered and reviewed test results and/or imaging studies. I spent time discussing the management of this critically ill patient with consultants and the medical staff. I spent time documenting in the medical record. I admitted this patient to a continuous cardiac monitored bed. I spent time discussing the management and therapeutic options for this critically ill patient with the patient themselves or with the appropriate designated surrogate decision-maker. us Srinivasa Sinclair MD IN CLINIC/BEDSIDE ORDER YU Final Result * CTA Abdomen Pelvis (09/16/2023 8:47 AM PARKING ENFORCEMENT TECHNICIAN) Anatomical Region Laterality Modality Body N/A Computed Tomogra phy 09/16/2023 1:37 PM PARKING ENFORCEMENT TECHNICIAN Narrative 09/16/2023 1:56 PM PARKING ENFORCEMENT TECHNICIAN EXAM DESCRIPTION: CTA ABDOMEN PELVIS REASON FOR [...] Findings Committee. J Am Christofer Radiol. 2017 Apr;14(8):0709-1376. 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 TW T: Report ID: [id number] Reading Location: [place] [address] Procedure Note Yazmin Mckee MD - 09/16/2023 [...] Findings Committee. J Am Christofer Radiol. 2017 Apr;14(8):0385-0777. FINDINGS: VASCULATURE: No dissection,intramural hematoma, rupture, or [...] been interval decrease in size of the gulkana aneurysmsac. 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 TW T: Report ID: [id number] Reading Location: [id number] Macho Harrison MD IMG CT PROCEDURES Final Re sult from Last 3 Months or Most Recently Relevant to Health Maintenance Insurance MEDICARE COMMERCIAL GENERIC MEDICARE COMMERCIAL GENERIC COMMERCIAL GENERIC MEDICARE Advance Directives For more information, please contact: [phone] * Full Code (Latest Code Status on File) Date Activated Date Inactivated Comments 04/14/2025 10:25 AM 04/18/2025 5:12 PM * Full Code Date Activated Date Inactivated Comments 04/12/2025 8:25 AM 04/14/2025 10:25 AM * Full Code Date Activated Date Inactivated Comments 03/05/2025 6:16 PM 03/09/2025 6:18 PM * Full Code Date Activated Date Inactivated Comments 07/13/2022 2:35 PM 07/14/2022 9:13 PM * Full Code Date Activated Date Inactivated Comments 07/04/2022 11:51 AM 07/04/2022 6:19 PM Care Teams Homicide Investigator Relationship Specialty Start Date End Date Elizabeth Kelly MD PCP - General Internal Medicine 04/06/20 Macho Harrison MD [address] [place] [address] Surgeon Vascular Surgery 05/08/22 Colton Portillo MD [address] [place] [address] Consulting Physician Cardiovascular Disease 06/26/22
--- OUTSIDE RECORDS SUMMARY | 2025-07-06 00:45 | XMS_ITS | Encounter Summary ---
Author Organization [facility] Address [address] [place] [address] Care Team Providers Care Nursing Assistants Teacher Name Role Phone Elizabeth Kelly MD Primary Care Provider [phone]- [phone] Encounter Details Date Type Department Care Team (Late st Contact Info) Description 06/05/2024 Lab Requisition [facility] - DermPath Lab [address], [place] [id number] James Rivas MD [facility] DERMATOLOGY [address] [place] [phone] Social History Tobacco Use Types Packs/Day Years Used Date Smoking Tobacco: Never Assessed Sex and Gender Information Value Date Recorded Sex Assigned at Not on file Legal Sex Male 6:31 AM PHYSICIAN [facility] Gender Identity Not on file Sexual Orientation Not on file documented as of this encounter Plan of Treatment Not on file documented as of this encounter Procedures Procedure Name Priority Date/Time Associated Diagnosis Comments DERMATOPATHOLOGY Routine 06/04/2024 12:0 0 AM CDT documented in this encounter Results * DERMATOPATHOLOGY (06/04/2024 12:00 AM CDT) Case Report Dermatopathology Report Case: [id number] Authorizing Provider: James Rivas MD Collected: 06/04/2024 12:00 AM Ordering Location: [facility] - Received: 06/05/2024 03:05 PM [...] of a non-oriented ellipse of skin measuring [id number] mm. The epidermal surface is unremarkable. The [...] characteristic determined by the Dermatopathology Laboratory at [facility], directed by Dr. Aiden Velez. These tests need not be, and therefore are not, approved by the [place] Food and Drug Administration. The tests are used for clinical purposes. Billing Codes Specimen Charges Stain Charges 05005 1 3:48 PM CDT DERMATOPATHOLOGY LABORATORY Embedded Images 3:48 PM CDT DERMATOPATHOLOGY LABORATORY Pathology/Cytolog y TISSUE SPECIMEN FROM SKIN / Unknown 06/04/2024 06/05/2024 3:05 PM CDT James Rivas MD LAB - PATHOLOGY/CYTOLOGY NATHAN REZA Final Result DERMATOPATHOLOGY LABORATORY [facility] - Department of Dermatology [facility] Medicine [address] [place] [address], [address] [phone] documented in this encounter Visit Diagnoses Not on filedocumented in this encounter Care Teams Nursing Assistants Teacher Relationship Specialty Start Date End Date Elizabeth Kelly MD [address] [place] [address] PCP - General 02/12/22 documented as of this encounter
--- OUTSIDE RECORDS SUMMARY | 2025-07-06 00:45 | XMS_ITS | Clinical Summary ---
Author Organization [facility] Address [address] [place] [address] Care Team Providers Care Sole Stitcher Hand Name Role Phone Elizabeth Kelly MD Primary Care Provider [phone]- [phone] Source Comments [facility],non-owned Affiliates and Associated Physician Practices is amultiple site organization consisting of ambulatory clinics and hospital sitesin [place], [place], [place] and [place]. This disclosure is being madepursuant to the Care Everywhere program and may not contain all information available regarding this patient. 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
--- OUTSIDE RECORDS SUMMARY | 2025-07-06 00:45 | XMS_ITS | Patient Health Record ---
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 [place] [address] Notes/Report: WBC 5.9 3.8-9.9 K/cumm Hgb 13.8 [...] (CMP) Reviewed date:08/04/2024 04:14:08 PM Interpretation: Performing Lab:[facility] , [address] [facility]. [place] [address] Notes/Report: Sodium 143 135-145 mmol/L Plasma Potassium [...] Gold Reviewed date:08/06/2024 09:18:01 PM Interpretation: Performing Lab:[facility] , [address] [place] [address]. [facility] [address] Notes/Report: QuantiFERON TB Gold Negative Negative No [...] Mitogen-Nil 6.09 NIL 0.01 Test Performed by: [facility] [address] [place] [address] Medical Affairs Specialist: Lillian Rosado Ph.D.; CLIA# [id number] CBC w auto diff Reviewed date:02/09/2025 05:11:48 PM Interpretation: Performing Lab:[facility] , [address] [place] [address]. [facility] [address] Notes/Report: WBC 5.69 3.80-9.90 K/cumm Hgb 14.7 [...] (CMP) Reviewed date:02/09/2025 05:11:48 PM Interpretation: Performing Lab:[facility] , [address] [place] [address]. [facility] [address] Notes/Report: Sodium 140 135-145 mmol/L Plasma Potassium [...] 22 7-55 Units/L AST 31 10-50 Units/L eGFR Reviewed date:08/04/2024 04:14:07 PM Interpretation: Performing Lab:[facility] , [address] [place] [address]. [facility] [address] Notes/Report: eGFR >90 >=60 mL/min/1.73 m2 Interpretive [...] was last reviewed 2021. Differential Automated Reviewed date:08/04/2024 04:14:07 PM Interpretation: Performing Lab:[facility] , [address] [place] [address]. [place] [address] Notes/Report: Neut Abs 4.5 1.5-6.5 K/cumm ImmGran Abs 0.0 0.0-0.1 K/cumm Lymphocyte Abs 0.7 0.8-3.3 K/cumm Hunt Abs 0.6 0.2-0.8 K/cumm Eos Abs 0.1 [...] Interpretive Data was last revised on 2017. Hunt Pct 10.3 Interpretive Data Percent cell count [...] Interpretive Data was last revised on 2017. Differential Automated Reviewed date:02/09/2025 05:11:48 PM Interpretation: Performing Lab:[facility] , [address] [place] [address]. [facility] [address] Notes/Report: Neut Abs 3.56 1.50-6.50 K/cumm ImmGran Abs 0.02 0.00-0.10 K/cumm Lymphocyte Abs 1.20 0.80-3.30 K/cumm Hunt Abs 0.77 0.20-0.80 K/cumm Eos Abs 0.10 [...] Interpretive Data was last revised on 2017. Hunt Pct 13.5 Interpretive Data Percent cell count [...] Interpretive Data was last revised on 2017. CBC w auto diff Reviewed date:05/12/2025 02:05:09 PM Interpretation:Lab Result Generalized Performing Lab:[facility] , [address] [place] [address]. [facility] [address] Notes/Report: WBC 7.37 3.80-9.90 K/cumm Hgb 14.2 13.0-17.5 g/dL Hct 42.9 38.9-50.3 % Platelet Ct 188 150-400 K/cumm MPV 9.9 9.1-12.3 fL RBC 4.16 4.30-5.80 M/cumm MCV 103.1 81.3-96.4 fL MCH 34.1 27.1-33.3 pg MCHC 33.1 32.3-35.7 g/dL RDW CV 13.3 11.1-14.9 % RDW SD 50.9 35.7-48.1 fL NRBC Abs Auto 0.00 0.00-0.01 K/cumm Differential Automated Reviewed date:05/12/2025 02:05:24 PM Interpretation: Performing Lab:[facility] , [address] [place] [address]. [place] [address] Notes/Report: Neut Abs 4.88 1.50-6.50 K/cumm ImmGran Abs 0.03 0.00-0.10 K/cumm Lymphocyte Abs 1.25 0.80-3.30 K/cumm Hunt Abs 0.84 0.20-0.80 K/cumm Eos Abs 0.30 0.00-0.50 K/cumm Baso Abs 0.07 0.00-0.10 K/cumm Neut Pct 66.2 Interpretive Data Percent cell count reference ranges [...] was last revised on 2017. Lymph Pct 17.0 Interpretive Data Percent cell count reference ranges are not reported, since discordance with absolute values may lead to misinterpretation of CBC data. Current Interpretive Data was last revised on 2017. Hunt Pct 11.4 Interpretive Data Percent cell count reference ranges are not reported, since discordance with absolute values may lead to misinterpretation of CBC data. Current Interpretive Data was last revised on 2017. Eos Pct 4.1 Interpretive Data Percent cell count reference ranges are not reported, since discordance with absolute values may lead to misinterpretation of CBC data. Current Interpretive Data was last revised on 2017. Baso Pct 0.9 Interpretive Data Percent cell count reference ranges are not reported, since discordance with absolute values may lead to misinterpretation of CBC data. Current Interpretive Data was last revised on 2017. Comprehensive metabolic pane l (CMP) Reviewed date:05/12/2025 02:05:09 PM Interpretation:Lab Result Generalized Performing Lab:[facility] , [address] [place] [address]. [facility] [address] Notes/Report: Sodium 143 135-145 mmol/L Plasma Potassium 4.1 3.3-4.9 mmol/L Chloride 105 97-110 mmol/L Total CO2 22 22-32 mmol/L Anion Gap 16 2-15 mmol/L BUN 10 6-25 mg/dL Creatinine 0.80 0.80-1.30 mg/dL Glucose 96 70-199 mg/dL Interpretive Data Fasting glucose >/= [...] data was last revised 2022. Total Calcium 8.7 8.5-10.3 mg/dL Total Bilirubin 0.5 0.1-1.2 mg/dL Plasma Total Protein 7.2 6.5-8.5 g/dL Albumin 4.1 3.5-5.0 g/dL Alkaline Phosphatase 84 40-130 Units/L ALT 18 7-55 Units/L AST 19 10-50 Units/L eGFR Reviewed date:05/12/2025 02:05:24 PM Interpretation: Performing Lab:[facility] , [facility]. [place] [address] Notes/Report: eGFR >90 >=60 mL/min/1.73 m2 Interpretive [...] eGFR Reviewed date:02/09/2025 05:11:48 PM Interpretation: Performing Lab:[facility] , [facility]. [place] [address] Notes/Report: eGFR >90 >=60 mL/min/1.73 m2 Interpretive [...] Current interpretive data was last reviewed 2021. Reason For Referral Reason 01.07.2025 Rituxan J 9312 NO Medicare/S(ref [id number]) NO PA REQUIRED Diagnosis 1 Rheumatoid arthritis without rheumatoid factor, multiple sites (M06.09) [facility] Referring Provider First Name Danica Referring Provider Last Name John Referring Provider Speciality Rheumatolo gy Referred Organization [facility] carlie Referred Provider Danica Lopez Referred Address [address],[address], Referred Provider Specialty Rheumatology Procedure 1 Inj., rituximab, 10 mg (J9312) Referral Priority Routine Reason [place] J9312 [facility] [place] Diagnosis 1 Rheumatoid arthritis without rheumatoid factor, multiple sites (M06.09) Referral Organization [facility] carlie Referring Provider First Name Danica Referring Provider Last Name John Referring Provider Speciality Rheumatolo gy Referred Organization [facility] carlie Referred Provider Danica Lopze Referred Address [address] [facility] [place], [place],[address], Referred Provider Specialty Rheumatology Procedure 1 Inj., rituximab, 10 mg (J9312) Referral Priority Routine Medications Medication SIG (Take, Route, Frequency, Duration) Notes Start Date End Date Status Folic Acid 1 MG take 1 tablet (1 mg) by oral route once daily Oral 1 Active Vitamin D3 25 MCG (1000 UT) take 1 capsule by oral route once Oral 1 Active predniSONE 2.5 MG TAKE 1 TABLET BY MOUTH EVERY DAY; Duration: 30 Active Vitamin C 500 mg take 1 tablet by oral route once Oral 1 Active Gabapentin 300 MG take 1 capsule at bedtime Oral Active Cetirizine HCl 10 mg TAKE ONE TABLET BY MOUTH DAILY *FOR ALLERGIES*; Duration: 90 Active Pravastatin Sodium 40 MG take 1 tablet (40 mg) by oral route once daily Oral 1 Active amLODIPine Besylate 10 mg TAKE ONE TABLET BY MOUTH DAILY *FOR BLOOD PRESSURE*; Duration: 90 Active Aspirin Adult Low Strength 81 MG take 1 tablet (81 mg) by oral route once daily Oral 1 Active Zinc 30 mg daily oral *Pick strength-form from [employer] for eRX* Active Fluticasone Propionate (Inhal) 50 MCG/ACT inhale 2 sprays (100 mcg) in each nostril by intranasal route once daily Inhalation Active Docusate Sodium 250 mg take 1 capsule (2 50 mg) by oral route once daily at bedtime as needed Oral 1 Active predniSONE 5 MG TAKE 1 TABLET BY MOUTH EVERY DAY; Duration: 30 Active traZODone HCl 150 MG take 1 tablet at bedtime Oral Active ProAir RespiClick 90 mcg/actuation 2 puffs q 4-6 hrs inhalation *Pick strength-form from [employer] for eRX* Active Methotrexate Sodium 2.5 MG 8 TABS ORALLY WEEKLY 90 DAYS; Duration: 84 Active Quercetin 500 mg take 1 capsule by oral route once oral 1 Active Xarelto 20 MG take 1 tablet (20 mg) by oral route bid Oral 1 Active Problems Problem Type SNOMED Code ICD Code Onset Dates Problem Status W/U Status Risk Notes Problem Rheumatoid arthritis (12696160) Rheumatoid arthritis without rheumatoid factor, multiple sites (M06.09) Active confirmed Problem History of malignant melanoma (629765238) Hx of malignant melanoma (Z85.820) Active confirmed Vital Signs Heart Rate 66 /min 05/11/2025 Temperature 98.1 degrees Fahrenheit 05/11/2025 Oximetry 94 % 05/11/2025 Height-cm 187.96 cm 05/11/2025 Blood pressure diastolic 62 mm Hg 05/11/2025 Weight-kg 98.02 kg 05/11/2025 Height 74 in 05/11/2025 Blood pressure systolic 120 mm Hg 05/11/2025 Weight 216.1 lbs 05/11/2025 BMI 27.74 kg/m2 05/11/2025 Encounters Encounter Location Date Provider Diagnosis [facility] [address] [place] [address] 08/04/2024 Danica Du Rheumatoid arthritis without rheumatoid factor, multiple sites M06.09 [facility] [address] [place] [address] 08/04/2024 Danica Du Rheumatoid arthritis without rheumatoid factor, multiple sites M06.09 ; High risk medication use Z79.899 and Hx of malignant melanoma Z85.820 [facility] [address] [place] [address] 08/18/2024 Danica Du Rheumatoid arthritis without rheumatoid factor, multiple sites M06.09 [facility] [address] [place] [address] 02/09/2025 Danica Du Rheumatoid arthritis without rheumatoid factor, multiple sites M06.09 [facility] [address] [place] [address] 02/23/2025 Danica Du Rheumatoid arthritis without rheumatoid factor, multiple sites M06.09 ; High risk medication use Z79.899 ; Hx of malignant melanoma Z85.820 and Open wound T14.8XXA [facility] [address] [place] [address] 05/11/2025 Danica Du Rheumatoid arthritis without rheumatoid factor, multiple sites M06.09 ; High risk medication use Z79.899 ; Hx of malignant melanoma Z85.820 and Open wound T14.8XXA [facility] [address] [place] [address] 08/04/2024 Danica Du [facility] [address] [place] [address] 08/18/2024 Danica Du [facility] [address] [place] [address] 02/23/2025 Danica Du [facility] [address] [place] [address] 05/11/2025 Danica Du Assessments Encounter Date Diagnosis (ICD Code) Assessment Notes Treatment Notes Treatment Clinical Notes Section Notes 08/04/2024 Rheumatoid arthritis without rheumatoid factor, multiple sites (ICD-10 - M06.09) clinically stable, rituxan helping, will continue, als continue methotrexate 20mg/wk and low dose prednisone, labs today 08/04/2024 Rheumatoid arthritis without rheumatoid factor, multiple sites (ICD-10 - M06.09) 08/18/2024 Rheumatoid arthritis without rheumatoid factor, multiple sites (ICD-10 - M06.09) 02/09/2025 Rheumatoid arthritis without rheumatoid factor, multiple sites (ICD-10 - M06.09) 02/23/2025 Rheumatoid arthritis without rheumatoid factor, multiple sites (ICD-10 - M06.09) hold rituxan due to open wound, will reschedule when wound is healed. 02/23/2025 High risk medication use (ICD-10 - Z79.899) hold rituxan due to open wound, will reschedule when wound is healed. 05/11/2025 Rheumatoid arthritis without rheumatoid factor, multiple sites (ICD-10 - M06.09) restart rituxan, continue MTX, decrease prednisone to 5mg/day, labs today 05/11/2025 High risk medication use (ICD-10 - Z79.899) restart rituxan, continue MTX, decrease prednisone to 5mg/day, labs today 02/23/2025 Hx of malignant melanoma (ICD-10 - Z85.820) hold rituxan due to open wound, will reschedule when wound is healed. 08/04/2024 High risk medication use (ICD-10 - Z79.899) clinically stable, rituxan helping, will continue, als continue methotrexate 20mg/wk and low dose prednisone, labs today 08/04/2024 Hx of malignant melanoma (ICD-10 - Z85.820) clinically stable, rituxan helping, will continue, als continue methotrexate 20mg/wk and low dose prednisone, labs today 02/23/2025 Open wound (ICD-10 - T14.8XXA) hold rituxan due to open wound, will reschedule when wound is healed. 05/11/2025 Hx of malignant melanoma (ICD-10 - Z85.820) restart rituxan, continue MTX, decrease prednisone to 5mg/day, labs today 05/11/2025 Open wound (ICD-10 - T14.8XXA) restart rituxan, continue MTX, decrease prednisone to 5mg/day, labs today Plan Of Treatment Pending Test Test Name Order Date CBC With Differential/Platelet 4 CBC With Differential/Platelet 3 CMP - Comp. Metabolic Panel (14) 023 CMP - Comp. Metabolic Panel (14) 024 Quantiferon Gold 08/20/2023 CMP(COMPREHENSIVE METABOLIC PANEL) 05/11 CBC W/DIFF 05/11/2025 Next Appt Details Provider Name:Danica Lopez, 08/10 10:30:00 AM, [address], [place], [address], Provider Name:Danica Lopez, 08/24 10:30:00 AM, [address], [place], [address], Insurance Providers Payer Name Payer Address Payer Phone Subscriber Number Group Number Insured Name Patient Relationship to Insured Coverage Start Date Coverage End Date Medicare [address] [address] [place] [address] [id number] Juventino Chappell Self - patient is the insured S Medicare Supplement [address] [address] [place] [phone] [id number] Juventino Chappell Self - patient is the [...]
[2025-07-06 08:52] VITALS: BP 133/74; PULSE 63; RESP 18; TEMP 37; O2SAT 100
--- NOTE | 2025-07-06 09:01 | WPDANESEPPF ---
Anes - Initial Pre Proc Eval Procedure: Operation Date: 07/06/25 10:00 Proposed Procedures p Screening Colonoscopy - Keenan Dutton MD Date/Time: 07/06/25 09:01 Surgeon: Keenan Dutton MD Pre Op Diagnosis: Personal history of colon polyps, unspecified Patient Data Age: 69 Gender: M Height: 1.85 m Weight: 92.9 kg Last Vital Signs Temp 98.6 F 07/06/25 08:52 Pulse 63 07/06/25 08:52 Resp 18 07/06/25 08:52 BP 133/74 07/06/25 08:52 Pulse Ox 100 07/06/25 08:52 O2 Del Method Room Air 07/06/25 08:52 Allergies Allergy/AdvReac Type Severity Reaction Status Date / Time No Known Allergies Allergy Unknown Verified 07/06/25 08:50 Home Medications ?Medication ?Instructions ?Recorded ?Confirmed ?Type albuterol sulfate 90 mcg/actuation 2 inh inhalation Q4-6H PRN 01/26/22 06/30/25 History aerosol inhaler Shortness Of Breath Or Wheezing folic acid 1 mg tablet 1 tablet PO DAILY 01/26/22 05/21/25 History gabapentin 300 mg capsule 300 mg PO DAILY 01/26/22 05/21/25 History methotrexate sodium 2.5 mg tablet 25 mg PO WEEKLY 01/26/22 05/21/25 History prednisone 5 mg tablet 5 mg PO DAILY 01/26/22 05/21/25 History rivaroxaban 20 mg tablet (Xarelto) 20 mg PO DAILY 01/26/22 07/06/25 History trazodone 150 mg tablet 150 mg PO DAILY 01/26/22 05/21/25 History Patient hx anesthesia problems: none Family hx anesthesia problems: none Results Review: All pre-operative results and documents have been reviewed as part of the pre-operative evaluation. [facility] Social History Social History Smoking packs per day: 1.5 Smoking cigarettes per day: 30.0 Years smoked: 30 Smoking pack-years: 45.00 Smoking status: Former smoker Tobacco type: cigarettes Alcohol intake: current Drinks per week: 35 Alcohol use details: 5 beers daily Substance use: current Substance use type: marijuana Other substance usage details: daily use marijuana Living arrangements: with family Spiritual care concerns: No Anes - Eval Final PreProcedure Day of Procedure 07/06/25 09:01 Patient weight: overweight Lungs: normal air movement Airway: Mallampati scale class II and special considerations (Dentures, upper and lower. ) Neurological: alert and oriented Last oral intake: >/= 8 hours ASA classification: III Emergent: no Anesthetic plan: proceed Anesthesia type and monitoring: general GIVS and standard monitoring Results Review: All pre-operative results and documents have been reviewed as part of the pre-operative evaluation. Pt w noted COPD, ex smoker, hx PRAVEEN but no CPAP since ptx x 2 this year (CT/pleurodesis). Hx AAA stent. Pt w good functional status, 1 fos, no cp or sob. Informed Consent: The patient's anesthetic plan and its attendant risks and benefits were discussed with the patient/family/POA. Questions were solicited and answers provided to the satisfaction of the patient/family/POA.
[2025-07-06] MEDS: LACTATED RINGERS 1,000 ML 150 ML IV CONT (09:03)
--- NOTE | 2025-07-06 09:37 | PM.IMHP ---
H&P: HPI History of Present Illness Date/Time: 07/06/25 09:37 Chief Complaint: History of colon polyps Narrative: The patient has a history of colonic polyps, the last colonoscopy was in 2021. Finding a sigmoid tubular adenoma. Review of Systems Review of Systems: All systems reviewed & are unremarkable except as noted in HPI and below [facility] Social History Social History Smoking packs per day: 1.5 Smoking cigarettes per day: 30.0 Years smoked: 30 Smoking pack-years: 45.00 Smoking status: Former smoker Tobacco type: cigarettes Alcohol intake: current Drinks per week: 35 Alcohol use details: 5 beers daily Substance use: current Substance use type: marijuana Other substance usage details: daily use marijuana Living arrangements: with family Spiritual care concerns: No Meds Home Medications and Allergies Home Medications ?Medication ?Instructions ?Recorded ?Confirmed ?Type albuterol sulfate 90 mcg/actuation 2 inh inhalation Q4-6H PRN 01/26/22 06/30/25 History aerosol inhaler Shortness Of Breath Or Wheezing folic acid 1 mg tablet 1 tablet PO DAILY 01/26/22 05/21/25 History gabapentin 300 mg capsule 300 mg PO DAILY 01/26/22 05/21/25 History methotrexate sodium 2.5 mg tablet 25 mg PO WEEKLY 01/26/22 05/21/25 History prednisone 5 mg tablet 5 mg PO DAILY 01/26/22 05/21/25 History rivaroxaban 20 mg tablet (Xarelto) 20 mg PO DAILY 01/26/22 07/06/25 History trazodone 150 mg tablet 150 mg PO DAILY 01/26/22 05/21/25 History Allergies Allergy/AdvReac Type Severity Reaction Status Date / Time No Known Allergies Allergy Unknown Verified 07/06/25 08:50 Vital Signs Vital Signs - 24 hr 07/06/25 08:52 Temperature 98.6 F Pulse Rate 63 Respiratory Rate 18 Blood Pressure 133/74 Pulse Oximetry 100 Oxygen Delivery Room Air Exam Const: General: cooperative and healthy appearing Resp: Effort & Inspection: normal respiratory effort and able to speak in complete sentences Auscultation: clear to auscultation bilaterally Cardio: Rate: regular rate Rhythm: regular rhythm GI: Inspection: normal to inspection GI Palp: No No hepatosplenomegaly present Auscultation: normal bowel sounds Rectal Exam: deferred Skin: General skin exam: normal color Psych: Appearance: grossly normal Mental Status: mental status grossly normal Assessment and Plan Assessment and plan (1) Colon cancer screening: Code(s): Z12.11 - Encounter for screening for malignant neoplasm of colon Status: Acute Assessment and Plan: The patient is deemed a good candidate for the procedure. Consent signed. Will proceed.
[2025-07-06] MEDS: SIMETHICONE ORAL SUSPENSION 20 MG/0.3 ML 30 ML BOTTLE 0.6 ML IRRIGATION (09:52)
--- NOTE | 2025-07-06 10:02 | S_PTH ---
PATIENT: Juventino Chappell LOC: [facility] U#:[id number] AGE/SX: 69/M ROOM: RE07/06/[address]: Keenan Dutton MD : [id number] BED: DIS: 07/06/2025 SPEC #: [id number] RECD: 07/06/25 11:17 STATUS: TATIANA REQ #: [id number] ZAY: 07/06/25 10:[address]: Keenan Dutton DEPT: [facility] Surgical RECD BY: Tyra Campos ENTERED: 07/06/25 11:17 SP TYPE: Surgical OTHR DR: Elizabeth Kelly MD Tissues: A - Colon Polypectomy Procedures: Hematoxylin and Eosin Stain Gross and Microscopic Level 4
--- NOTE | 2025-07-06 10:08 | SUR.OPER ---
aware that rectal polyp removed was not retrieved
[2025-07-06 10:09] VITALS: BP 126/74; PULSE 67; RESP 18; O2SAT 99
[2025-07-06 10:19] VITALS: BP 123/83; PULSE 63; RESP 20; O2SAT 99
[2025-07-06 10:29] VITALS: BP 124/78; PULSE 63; RESP 21; O2SAT 97
== END 2025-07-06 10:41 | disposition home or self-care (01) ==
PROVIDERS: PCP Internal Medicine; Referring Provider Internal Medicine; Visit Provider Internal Medicine Gastroenterology
PROC: 0DJD8ZZ Inspection of Lower Intestinal Tract, Via Natural or Artificial Opening Endoscopic (ICD-10-PCS; CPT 45378; principal; 2025-07-06 10:00)
DX: Z12.11 Encounter for screening for malignant neoplasm of colon (principal); D12.3 Benign neoplasm of transverse colon; K64.8 Other hemorrhoids; K57.30 Diverticulosis of large intestine without perforation or abscess without bleeding; J44.9 Chronic obstructive pulmonary disease, unspecified; G47.33 Obstructive sleep apnea (adult) (pediatric); F12.90 Cannabis use, unspecified, uncomplicated; Z79.51 Long term (current) use of inhaled steroids; Z79.52 Long term (current) use of systemic steroids; Z79.01 Long term (current) use of anticoagulants; Z87.891 Personal history of nicotine dependence; Z95.828 Presence of other vascular implants and grafts
CPT/HCPCS: 45385; 88305; J2003; J2704; J7120